=== PATIENT | male | born 1945 | race Caucasian/White ===

== ENCOUNTER 2020-01-02 21:58 | Inpatient (IN) | payer BC, MEDICARE ==
[~2020-01-02] VITALS: Ht 190.5 cm; Wt 146.0 kg
[2020-01-02 22:22] VITALS: BP 78/51
[2020-01-02 22:30] VITALS: BP 109/62
[2020-01-03] VITALS (15 sets, daily range): BP systolic 75–122; BP diastolic 46–66
[2020-01-03] MEDS ORDERED: IPRATRPIUM/ALBUTEROL 0.5/2.5MG 3 ML NEBU. NEB ONE (02:00)
--- NOTE | 2020-01-03 02:12 | RAD ---
INDICATION: Reason: ng tube placement - readjust #204 / Spl. Instructions: / History: COMPARISON: One day prior IMPRESSION: Abdomen from 1:45 AM 01/03/2020. 1 view obtained. Single enteric tube is seen with tip in the left upper quadrant at the expected location of the stomach. Degenerative changes of the spine. Bowel gas pattern similar to prior with some prominent air-filled loops of bowel. Abdomen from 1:39 AM 01/03/2020. Single enteric tube is seen projecting over the expected location of the lower esophagus. Air-filled distended loops of bowel within the abdomen this patient with suspected bowel obstruction. Electronically signed by: Christopher Catalan MD (01/03/2020 2:09 AM) [id number]
[2020-01-03] MEDS ORDERED: PROPOFOL 10 MG/ML (20ML) VIAL. IV ONE (07:06)
[2020-01-03] MEDS ORDERED: LIDOCAINE 2% PF 5 ML VIAL. ONE (07:06)
[2020-01-03] MEDS ORDERED: ONDANSETRON PF 4 MG/2 ML VIAL. ONE (07:06)
[2020-01-03] MEDS ORDERED: DEXAMETHASONE SOD PHOS 4 MG/ML VIAL ONE (07:06)
[2020-01-03] MEDS ORDERED: SUCCINYLCHOLINE 200 MG/10 ML VIAL. ONE (07:08)
[2020-01-03] MEDS ORDERED: ROCURONIUM 50 MG/5 ML VIAL. ONE ×2 (07:08→09:36)
--- NOTE | 2020-01-03 07:10 | NUR ---
UPON SHIFT CHANGE ASSESSMENT, PATIENT HAD PULLED OUT HIS NG TUBE, PULLED OFF HIS SPO2 PROBE, AND URINATED ON THE FLOOR AND IN THE TRASH CAN. AT THIS TIME PATIENT ISN'T ORIENTED TO PLACE OR TIME. PATIENTS LINEN CHANGED AND PATIENT RE-ORIENTED. PATIENT REFUSING HOSPITAL GOWN AT THIS TIME. WILL CONTINUE TO MONITOR PATIENT.
--- NOTE | 2020-01-03 07:23 | PDOC1 ---
History and Physical Date of Admission Date of Admission DATE: 01/03/20 TIME: 07:21 Identification/Chief Complaint Chief Complaint Abdominal pain Source Source: Chart review, Patient History of Present Illness History of Present Illness Mr Ortega is a 74 year old male w/ PMHx OA, COPD, smoker who presents via private vehicle to [facility] with abdominal pain with vomiting. Patient states that for the last several months he has had this bulge in his abdomen has been getting bigger. Over the last couple days it has become painful and he has been having intermittent spontaneous vomiting. He states he is not been able to eat or drink anything for the last 2 or 3 days. The only time he was able to eat something was a banana yesterday morning but he immediately had vomiting. He denies any chest pain or shortness of breath. He is diaphoretic but states that he often has diaphoresis. CT abdomen pelvis was ordered and does show an incarcerated hernia with obstruction. Upon NGT placement on telemetry was noted with atrial fibrillation with RVR. He was started on diltiazem and transferred to [facility]. Initially seen on cardiovascular floor. Labs significant for WBC 9.6, Hb 17, platelets 324, NA 136, K3.9, BUN 383, CR 2.1, glucose 121, lactate 2.3, troponin negative. INR 1.2 EKG performed here is normal sinus rhythm with no ST segment changes. To the OR for hernia reduction, actually was reducible in the OR physically, mesh placed. Seen pre-and postoperatively Postoperatively unable to extubate due to significant hypercapnia found with ABG is 7.17, 69.5, 199.7. Seen in ICU postop. Past Medical History Pulmonary: Bronchitis, COPD Past Surgical History Past Surgical History: Total hip replacement Family History Family History: Chronic Bronchitis, High Cholestrol, Hypertension Social History Smoke: 1 pack per day ALCOHOL: occassional Drugs: None Current Medications Current Medications Current Medications Albuterol/ Ipratropium (Duoneb) 3 ml RTQID NEB ; Start 01/03/20 at 08:00 Albuterol/ Ipratropium (Duoneb) 3 ml 1X ONCE NEB Last administered on 01/03/20at 01:57; Start 01/03/20 at 02:00; Stop 01/03/20 at 02:01; Status DC Propofol (Diprivan) 200 mg STK-MED ONCE IV ; Start 01/03/20 at 07:06; Stop 01/03/20 at 07:06; Status DC Lidocaine HCl (Lidocaine Pf 2% Vial) 5 ml STK-MED ONCE .ROUTE ; Start 01/03/20 at 07:06; Stop 01/03/20 at 07:07; Status DC Dexamethasone Sodium Phosphate (Decadron) 4 mg STK-MED ONCE .ROUTE ; Start 01/03/20 at 07:06; Stop 01/03/20 at 07:07; Status DC Ondansetron HCl (Zofran) 4 mg STK-MED ONCE .ROUTE ; Start 01/03/20 at 07:06; Stop 01/03/20 at 07:07; Status DC Succinylcholine Chloride (Anectine) 200 mg STK-MED ONCE .ROUTE ; Start 01/03/20 at 07:08; Stop 01/03/20 at 07:08; Status DC Rocuronium Ripley (Zemuron) 50 mg STK-MED ONCE .ROUTE ; Start 01/03/20 at 07:08; Stop 01/03/20 at 07:09; Status DC Allergies Allergies: Coded Allergies: No Known Drug Allergies (Unverified , 01/03/20) ROS General: No: Chills, Night Sweats, Fatigue, Malaise, Appetite, Other PSYCHOLOGICAL ROS: No: Anxiety, Behavioral Disorder, Concentration difficultie, Decreased libido, Depression, Disorientation, Hallucinations, Hostility, Irritablity, Memory difficulties, Mood Swings, Obsessive thoughts, Physical abuse, Sexual abuse, Sleep disturbances, Suicidal ideation, Other Eyes: No Blurry vision, No Decreased vision, No Double vision, No Dry eyes, No Excessive tearing, No Eye Pain, No Itchy Eyes, No Loss of vision, No P hotophobia, No Scotomata, No Uses contacts, No Uses glasses, No Other HEENT: No: Heacaches, Visual Changes, Hearing change, Nasal congestion, Nasal discharge, Oral lesions, Sinus pain, Sore Throat, Epistaxis, Sneezing, Snoring, Tinnitus, Vertigo, Vocal changes, Other ALLERGY AND IMMUNOLOGY: No: Hives, Insect Bite Sensitivity, Itchy/Watery Eyes, Nasal Congestion, Post Nasal Drip, Seasonal Allergies, Other Hematological and Lymphatic: No: Bleeding Problems, Blood Clots, Blood Transfusions, Brusing, Night Sweats, Pallor, Swollen Lymph Nodes, Other ENDOCRINE: No: Breast Changes, Galactorrhea, Hair Pattern Changes, Hot Flashes, Malaise/lethargy, Mood Swings, Palpitations, Polydipsia/polyuria, Skin Changes, Temperature Intolerance, Unexpected Weight Changes, Other Breast: No New/Changing Breast Lumps, No Nipple changes, No Nipple discharge, No Other Respiratory: No: Cough, Hemoptysis, Orthopnea, Pleuritic Pain, Shortness of breath, SOB with excertion, Sputum Changes, Stridor, Tachypnea, Wheezing, Other Cardiovascular: No Chest Pain, No Palpitations, No Orthopnea, No Paroxysmal Noc. Dyspnea, No Edema, No Lt Headedness, No Other Gastrointestinal: Yes Nausea, Yes Vomiting, Yes Abdominal Pain; No Diarrhea, No Constipation, No Melena, No Hematochezia, No Other Genitourinary: No Dysuria, No Frequency, No Incontinence, No Hematuria, No Retention, No Discharge, No Urgency, No Pain, No Flank Pain, No Other, No , No , No , No , No , No , No Musculoskeletal: No Gait Disturbance, No Joint Pain, No Joint Stiffness, No Joint Swelling, No Muscle Pain, No Muscular Weakness, No Pain In:, No Swelling In:, No Other Neurological: No Behavorial Changes, No Bowel/Bladder ControlChng, No Confusion, No Dizziness, No Gait Disturbance, No Headaches, No Impaired Coord/balance, No Memory Loss, No Numbness/Tingling, No Seizures, No Speech Problems, No Tremors, No Visual Changes, No Weakness, No Other Skin: No Dry Skin, No Eczema, No Hair Changes, No Lumps, No Mole Changes, No Mottling, No Nail Changes, No Pruritus, No Rash, No Skin Lesion Changes, No Other, No Acne Physical Exam General: Alert, Oriented X3, Cooperative, moderate distress HEENT: Atraumatic, PERRLA, EOMI, Mucous membr. moist/pink Lungs: Clear to auscultation, Normal air movement Heart: S1S2, RRR, no thrills, no rubs, no gallops, no murmurs Abdomen: Normal bowel sounds, Soft, No hepatosplenomegaly, No masses, Other (Ventral hernia, not reducible, pain on palpation) Rectal Exam: not examined Extremities: No clubbing, No cyanosis, No edema, Normal pulses, No tenderness/swelling Skin: No rashes, No breakdown, No significant lesion Neuro: Normal speech, Strength at 5/5 X4 ext, Normal tone, Sensation intact, Cranial nerves 3-12 NL, Reflexes 2+ Psych/Mental Status: Mental status NL, Mood NL Vitals Vitals Vital Signs Date Time Temp Pulse Resp B/P (MAP) Pulse Ox O2 Delivery O2 Flow Rate FiO2 01/03/20 02:26 98.6 86 122/66 (84) 94 Nasal Cannula 2.0 98.6 01/02/20 22:22 20 Labs Labs Laboratory Tests Test 01/02/20 22:15 SARS-CoV-2 Antigen (Rapid) Negative (NEGATIVE) Laboratory Tests Test 01/02/20 22:15 SARS-CoV-2 Antigen (Rapid) Negative (NEGATIVE) Images Images CXR: 2 supine images submitted. Interval placement of NG tube with tip projected to the level of the gastric fundus. Heart size is upper limits of normal. There is elevation of right hemidiaphragm. Mild patchy increased density at the left lung base with blunting of left costophrenic sulcus. Lungs are otherwise clear. No pneumothorax. IMPRESSION: 1. NG tube with tip projected to the level the gastric fundus. 2. Patchy left basilar opacity, likely atelectasis. There is a suspected small left pleural effusion versus pleural thickening. CT abdomen/pelvis: Heart size is normal. No pericardial effusion. Left pleural calcifications are noted. Bases are otherwise clear. Evaluation of solid organs is limited secondary to noncontrast technique. There is diffuse hepatic steatosis. Spleen, pancreas, gallbladder and adrenals are unremarkable. There is a large simple appearing cyst at the lower pole of the right kidney measuring 14.8 x 9.8 cm incompletely characterized on noncontrast study. No perinephric inflammation or hydronephrosis. No renal or ureteral calculi are identified. Bladder is decompressed not well evaluated. Prostate is not enlarged. There is a supraumbilical ventral hernia, which contains a short segment of large and small bowel. There is associated small bowel obstruction secondary to a hernia. No free intra-abdominal air or fluid. There are strandy opacities in the mesentery adjacent to the hernia. Abdominal aorta has a normal course and caliber. No enlarged intra-abdominal lymph nodes are identified. No suspicious osseous lesions or acute fractures. IMPRESSION: 1. Supraumbilical hernia containing a short segment of small and large bowel causing small bowel obstruction. 2. Diffuse hepatic steatosis. VTE Prophylaxis Ordered VTE Prophylaxis Devices: No VTE Pharmacological Prophylaxi: Yes Assessment/Plan Assessment/Plan A/P: Incarcerated ventral hernia - NPO, Pulled NGT multiple times. To OR ?Atrial fibrillation with RVR - no EKG available. Off cardizem. NSR on EKG here. Will consult cardiology for this. Cont telemetry SHAQ - likely vasomotor nephropathy. No known renal history. Will hydrate as well. Thrombocytosis - likely from TARIQ undiagnosed, likely cause of inability to extubate COPD - pulm consulted post-op for failure to extubate. Duonebs q4hrs and pulmicort Obesity - counseled on weight loss, likely has TARIQ or OHS Smoker - counseled on cessation Hypercapnic respiratory failure - likely 2/2 undiagnosed TARIQ/OHS and underlying COPD. Pulm consulted. Vent wean daily FEN - NPO PPX - heparin FULL CODE Dispo - ICU for post op monitoring CC time 47 minutes on 2 visits today Justicifation of Admission Dx: Justifications for Admission: Justification of Admission Dx: Yes RANGEL RASHID MD Jan 03, 2020 07:23
[2020-01-03] MEDS ORDERED: ACETAMINOPHEN 650 MG SUPP.RECT. PR PRN (07:30)
[2020-01-03] MEDS ORDERED: IV RINGERS,LACTATED 1000ML 1,000 ML IV ONE (07:30)
[2020-01-03] MEDS ORDERED: ACETAMINOPHEN 650 MG/20.3 ML SOLUTION. GT PRN (07:30)
[2020-01-03] MEDS ORDERED: fentaNYL PF VIAL 100 MCG/2 ML VIAL IVP PRN ×2 (07:30→12:45)
[2020-01-03] MEDS ORDERED: ONDANSETRON PF 4 MG/2 ML VIAL. IV PRN ×2 (07:30→09:45)
--- NOTE | 2020-01-03 07:40 | EKG ---
[facility] [address] [place] [address] Test Date: 2020-01-03 Test Time: 07:35:55 Pat Name: MACO VILLARREAL Department: Room: 204 1 Gender: M Founder / Ceo: : 1945 Requested By: RANGEL RASHID Order Number: [id number] Reading MD: Measurements Intervals Huntley Rate: 84 P: 48 ME: 172 QRS: 51 QRSD: 86 T: 65 QT: 372 QTc: 443 Interpretive Statements SINUS RHYTHM LOW LIMB LEAD VOLTAGE NO SPECIFIC ECG ABNORMALITIES RI6.02 No previous ECG available for comparison
[2020-01-03] MEDS ORDERED: SEVOFLURANE 61 TO 120 MINUTES. IH ONE (07:55)
[2020-01-03] MEDS ORDERED: fentaNYL PF VIAL 100 MCG/2 ML VIAL ONE ×2 (07:55→11:40)
[2020-01-03] MEDS ORDERED: IPRATRPIUM/ALBUTEROL 0.5/2.5MG 3 ML NEBU. NEB SCH (08:00)
[2020-01-03 08:10] LABS: BASO % 1 % (0-3); EOS # 0.1 x10^3/uL (0.0-0.7); EOS % 1 % (0-3); HEMATOCRIT 41.5 % (39.0-53.0); HEMOGLOBIN 14.1 g/dL (13.0-17.5); LYMPH # 1.6 x10^3/uL (1.0-4.8); LYMPH % 24 % (24-48); MEAN CORPUSCULAR HEMOGLOBIN 31 pg (25-35); MEAN CORPUSCULAR HGB CONC 34 g/dL (31-37); MEAN CORPUSCULAR VOLUME 91 fL (79-100); MONO # 0.8 x10^3/uL (0.0-1.1); MONO % 12 % (0-9); NEUT # 4.1 x10^3/uL (1.8-7.7); NEUT % 62 % (31-73); PLATELET COUNT 236 x10^3/uL (140-400); RED BLOOD COUNT 4.58 x10^6/uL (4.30-5.70); RED CELL DISTRIBUTION WIDTH 14.1 % (11.5-14.5); WHITE BLOOD COUNT 6.6 x10^3/uL (4.0-11.0)
[2020-01-03 08:21] LABS: PROTHROMBIN TIME PATIENT 14.3 SEC (11.7-14.0)
[2020-01-03 08:24] LABS: ALBUMIN 2.9 g/dL (3.4-5.0); ALBUMIN/GLOBULIN RATIO 0.8 (1.0-1.7); CALCIUM 7.8 mg/dL (8.5-10.1); CREATININE 1.5 mg/dL (0.7-1.3); GFR 45.5; TOTAL BILIRUBIN 0.4 mg/dL (0.2-1.0); TOTAL PROTEIN 6.6 g/dL (6.4-8.2)
[2020-01-03] MEDS ORDERED: IPRATRPIUM/ALBUTEROL 0.5/2.5MG 3 ML NEBU. NEB STA (08:29)
--- NOTE | 2020-01-03 08:39 | PDOC2 ---
CONSULT Date of Consult Date of Consult DATE: 01/03/20 TIME: 08:37 History of Present Illness Reason for Visit: The patient is a 74 year old male who was taken to [facility] ER with SOB and a worsening ventral hernia. The patient is a poor historian and states "I don't know" to numerous questions. Evidently a hernia had been known about for some time, but recently he developed vomiting. While in [facility] a CT scan noted the hernia containing bowel with some degree of obstruction. He was transferred to [facility] for further treatment. Past Medical History Past Medical History COPD, A Fib Past Surgical History Past Surgical History Hip replacement Social History 1 pack per day Current Medications Current Medications Current Medications Albuterol/ Ipratropium (Duoneb) 3 ml RTQID NEB Last administered on 01/03/20at 07:40; Start 01/03/20 at 08:00 Albuterol/ Ipratropium (Duoneb) 3 ml 1X ONCE NEB Last administered on 01/03/20at 01:57; Start 01/03/20 at 02:00; Stop 01/03/20 at 02:01; Status DC Propofol (Diprivan) 200 mg STK-MED ONCE IV ; Start 01/03/20 at 07:06; Stop 01/03/20 at 07:06; Status DC Lidocaine HCl (Lidocaine Pf 2% Vial) 5 ml STK-MED ONCE .ROUTE ; Start 01/03/20 at 07:06; Stop 01/03/20 at 07:07; Status DC Dexamethasone Sodium Phosphate (Decadron) 4 mg STK-MED ONCE .ROUTE ; Start 01/03/20 at 07:06; Stop 01/03/20 at 07:07; Status DC Ondansetron HCl (Zofran) 4 mg STK-MED ONCE .ROUTE ; Start 01/03/20 at 07:06; Stop 01/03/20 at 07:07; Status DC Succinylcholine Chloride (Anectine) 200 mg STK-MED ONCE .ROUTE ; Start 01/03/20 at 07:08; Stop 01/03/20 at 07:08; Status DC Rocuronium Sparks (Zemuron) 50 mg STK-MED ONCE .ROUTE ; Start 01/03/20 at 07:08; Stop 01/03/20 at 07:09; Status DC Ringer's Solution 1,000 ml @ 75 mls/hr 1X ONCE IV Last administered on 01/03/20at 07:30; Start 01/03/20 at 07:30; Stop 01/03/20 at 20:49 Ondansetron HCl (Zofran) 4 mg PRN Q4HRS PRN IV NAUSEA/VOMITING; Start 01/03/20 at 07:30 Acetaminophen (Tylenol) 650 mg PRN Q4HRS PRN GT TEMP OVER 100.4F OR MILD PAIN; Start 01/03/20 at 07:30 Acetaminophen (Tylenol Supp) 650 mg PRN Q4HRS PRN MS TEMP OVER 100.4F OR MILD PAIN; Start 01/03/20 at 07:30 Fentanyl Citrate (Fentanyl 2ml Vial) 25 mcg PRN Q2HR PRN IVP MODERATE PAIN; Start 01/03/20 at 07:30 Sevoflurane (Ultane) 60 ml STK-MED ONCE IH ; Start 01/03/20 at 07:55; Stop 01/03/20 at 07:55; Status DC Fentanyl Citrate (Fentanyl 2ml Vial) 100 mcg STK-MED ONCE .ROUTE ; Start 01/03/20 at 07:55; Stop 01/03/20 at 07:55; Status DC Albuterol/ Ipratropium (Duoneb) 3 ml 1X STAT NEB ; Start 01/03/20 at 08:29; Stop 01/03/20 at 08:34; Status DC Allergies Allergies: Coded Allergies: No Known Drug Allergies (Unverified , 01/03/20) ROS General: No: Chills, Night Sweats, Fatigue, Malaise, Appetite, Other PSYCHOLOGICAL ROS: No: Anxiety, Behavioral Disorder, Concentration difficultie, Decreased libido, Depression, Disorientation, Hallucinations, Hostility, Irritablity, Memory difficulties, Mood Swings, Obsessive thoughts, Physical abuse, Sexual abuse, Sleep disturbances, Suicidal ideation, Other Eyes: No Blurry vision, No Decreased vision, No Double vision, No Dry eyes, No Excessive tearing, No Eye Pain, No Itchy Eyes, No Loss of vision, No Photophobia, No Scotomata, No Uses contacts, No Uses glasses, No Other HEENT: No: Heacaches, Visual Changes, Hearing change, Nasal congestion, Nasal discharge, Oral lesions, Sinus pain, Sore Throat, Epistaxis, Sneezing, Snoring, Tinnitus, Vertigo, Vocal changes, Other ALLERGY AND IMMUNOLOGY: No: Hives, Insect Bite Sensitivity, Itchy/Watery Eyes, Nasal Congestion, Post Nasal Drip, Seasonal Allergies, Other ENDOCRINE: No: Breast Changes, Galactorrhea, Hair Pattern Changes, Hot Flashes, Malaise/lethargy, Mood Swings, Palpitations, Polydipsia/polyuria, Skin Changes, Temperature Intolerance, Unexpected Weight Changes, Other Breast: No New/Changing Breast Lumps, No Nipple changes, No Nipple discharge, No Other Respiratory: YES: Shortness of breath Cardiovascular: No Chest Pain, No Palpitations, No Orthopnea, No Paroxysmal N oc. Dyspnea, No Edema, No Lt Headedness, No Other Gastrointestinal: Yes Vomiting Genitourinary: No Dysuria, No Frequency, No Incontinence, No Hematuria, No Retention, No Discharge, No Urgency, No Pain, No Flank Pain, No Other, No , No , No , No , No , No , No Musculoskeletal: No Gait Disturbance, No Joint Pain, No Joint Stiffness, No Joint Swelling, No Muscle Pain, No Muscular Weakness, No Pain In:, No Swelling In:, No Other Neurological: No Behavorial Changes, No Bowel/Bladder ControlChng, No Confusion, No Dizziness, No Gait Disturbance, No Headaches, No Impaired Coord/balance, No Memory Loss, No Numbness/Tingling, No Seizures, No Speech Problems, No Tremors, No Visual Changes, No Weakness, No Other Skin: No Dry Skin, No Eczema, No Hair Changes, No Lumps, No Mole Changes, No Mottling, No Nail Changes, No Pruritus, No Rash, No Skin Lesion Changes, No Other, No Acne Physical Exam General: Alert, Other (flat affect) HEENT: Atraumatic Lungs: Clear to auscultation Abdomen: Soft (morbidly obese, sizeable upper mid abdominal hernia, soft but not fully reducible, nontender) Extremities: No cyanosis Skin: No rashes Neuro: Normal speech Vitals VITALS Vital Signs Date Time Temp Pulse Resp B/P (MAP) Pulse Ox O2 Delivery O2 Flow Rate FiO2 01/03/20 07:42 91 Nasal Cannula 2.0 01/03/20 07:15 98.6 82 20 106/58 (74) 98.6 Labs Labs Laboratory Tests Test 01/02/20 22:15 8/8/20 07:10 SARS-CoV-2 Antigen (Rapid) Negative (NEGATIVE) White Blood Count 6.6 x10^3/uL (4.0-11.0) Red Blood Count 4.58 x10^6/uL (4.30-5.70) Hemoglobin 14.1 g/dL (13.0-17.5) Hematocrit 41.5 % (39.0-53.0) Mean Corpuscular Volume 91 fL (79-100) Mean Corpuscular Hemoglobin 31 pg (25-35) Mean Corpuscular Hemoglobin Concent 34 g/dL (31-37) Red Cell Distribution Width 14.1 % (11.5-14.5) Platelet Count 236 x10^3/uL (140-400) Neutrophils (%) (Auto) 62 % (31-73) Lymphocytes (%) (Auto) 24 % (24-48) Monocytes (%) (Auto) 12 % (0-9) Eosinophils (%) (Auto) 1 % (0-3) Basophils (%) (Auto) 1 % (0-3) Neutrophils # (Auto) 4.1 x10^3/uL (1.8-7.7) Lymphocytes # (Auto) 1.6 x10^3/uL (1.0-4.8) Monocytes # (Auto) 0.8 x10^3/uL (0.0-1.1) Eosinophils # (Auto) 0.1 x10^3/uL (0.0-0.7) Basophils # (Auto) 0.0 x10^3/uL (0.0-0.2) Prothrombin Time 14.3 SEC (11.7-14.0) Prothromb Time International Ratio 1.2 (0.8-1.1) Sodium Level 138 mmol/L (136-145) Potassium Level 4.0 mmol/L (3.5-5.1) Chloride Level 102 mmol/L (98-107) Carbon Dioxide Level 28 mmol/L (21-32) Anion Gap 8 (6-14) Blood Urea Nitrogen 33 mg/dL (8-26) Creatinine 1.5 mg/dL (0.7-1.3) Estimated GFR (Cockcroft-Gault) 45.5 BUN/Creatinine Ratio 22 (6-20) Glucose Level 82 mg/dL (70-99) Calcium Level 7.8 mg/dL (8.5-10.1) Total Bilirubin 0.4 mg/dL (0.2-1.0) Aspartate Amino Transf (AST/SGOT) 33 U/L (15-37) Alanine Aminotransferase (ALT/SGPT) 34 U/L (16-63) Alkaline Phosphatase 56 U/L (46-116) Total Protein 6.6 g/dL (6.4-8.2) Albumin 2.9 g/dL (3.4-5.0) Albumin/Globulin Ratio 0.8 (1.0-1.7) Laboratory Tests Test 01/02/20 22:15 01/03/20 07:10 SARS-CoV-2 Antigen (Rapid) Negative (NEGATIVE) White Blood Count 6.6 x10^3/uL (4.0-11.0) Red Blood Count 4.58 x10^6/uL (4.30-5.70) Hemoglobin 14.1 g/dL (13.0-17.5) Hematocrit 41.5 % (39.0-53.0) Mean Corpuscular Volume 91 fL (79-100) Mean Corpuscular Hemoglobin 31 pg (25-35) Mean Corpuscular Hemoglobin Concent 34 g/dL (31-37) Red Cell Distribution Width 14.1 % (11.5-14.5) Platelet Count 236 x10^3/uL (140-400) Neutrophils (%) (Auto) 62 % (31-73) Lymphocytes (%) (Auto) 24 % (24-48) Monocytes (%) (Auto) 12 % (0-9) Eosinophils (%) (Auto) 1 % (0-3) Basophils (%) (Auto) 1 % (0-3) Neutrophils # (Auto) 4.1 x10^3/uL (1.8-7.7) Lymphocytes # (Auto) 1.6 x10^3/uL (1.0-4.8) Monocytes # (Auto) 0.8 x10^3/uL (0.0-1.1) Eosinophils # (Auto) 0.1 x10^3/uL (0.0-0.7) Basophils # (Auto) 0.0 x10^3/uL (0.0-0.2) Prothrombin Time 14.3 SEC (11.7-14.0) Prothromb Time International Ratio 1.2 (0.8-1.1) Sodium Level 138 mmol/L (136-145) Potassium Level 4.0 mmol/L (3.5-5.1) Chloride Level 102 mmol/L (98-107) Carbon Dioxide Level 28 mmol/L (21-32) Anion Gap 8 (6-14) Blood Urea Nitrogen 33 mg/dL (8-26) Creatinine 1.5 mg/dL (0.7-1.3) Estimated GFR (Cockcroft-Gault) 45.5 BUN/Creatinine Ratio 22 (6-20) Glucose Level 82 mg/dL (70-99) Calcium Level 7.8 mg/dL (8.5-10.1) Total Bilirubin 0.4 mg/dL (0.2-1.0) Aspartate Amino Transf (AST/SGOT) 33 U/L (15-37) Alanine Aminotransferase (ALT/SGPT) 34 U/L (16-63) Alkaline Phosphatase 56 U/L (46-116) Total Protein 6.6 g/dL (6.4-8.2) Albumin 2.9 g/dL (3.4-5.0) Albumin/Globulin Ratio 0.8 (1.0-1.7) Assessment/Plan Assessment/Plan 74 year old male with ventral hernia, incarcerated, some degree of obstruction; recommend operative correction. I attempted to discuss the details and risks of the surgery with the patient. He has no further questions. He is at high risk of surgery due to his comorbidities, however given his presentation I believe surgery to be urgently necessary. LESTER PITT MD Jan 03, 2020 08:39
[2020-01-03] MEDS ORDERED: ceFAZolin SODIUM 3 GM in IV DEXTROSE 5% 100ML 100 ML IV PRN (09:00)
[2020-01-03] MEDS ORDERED: VASOPRESSIN 20 UNIT/ML VIAL. ONE (09:25)
[2020-01-03] MEDS ORDERED: MORPHINE SULFATE 2 MG/ML VIAL. IV PRN (09:45)
[2020-01-03] MEDS ORDERED: fentaNYL PF VIAL 100 MCG/2 ML VIAL IV PRN (09:45)
[2020-01-03] MEDS ORDERED: PROCHLORPERAZINE 10 MG/2 ML VIAL. IV PRN (09:45)
[2020-01-03] MEDS ORDERED: LIDOCAINE 1% PF 2 ML VIAL. ID PRN (09:45)
[2020-01-03] MEDS ORDERED: HYDROmorphone 2 MG/ML VIAL IV PRN (09:45)
[2020-01-03] MEDS ORDERED: IV RINGERS,LACTATED 1000ML 1,000 ML IV SCH (10:00)
[2020-01-03] MEDS ORDERED: PHENYLEPHRINE in 0.9% NACL PF 1 MG/10 ML SYRINGE. IV ONE (10:00)
[2020-01-03] MEDS ORDERED: ePHEDrine PF IN SALINE 50 MG/10 ML SYRINGE. IV ONE (10:00)
[2020-01-03] MEDS ORDERED: GLYCOPYRROLATE 1 MG/5 ML VIAL. ONE (10:25)
[2020-01-03] MEDS ORDERED: NEOSTIGMINE METHYLSULFATE 5 MG/5 ML SYRINGE. ONE (10:26)
--- NOTE | 2020-01-03 10:43 | PDOC4 ---
Operative Note Operative Note Operative Note: Preoperative Diagnosis: Incarcerated ventral hernia Postoperative Diagnosis: Same Procedure: Repair of incarcerated ventral hernia with mesh Surgeon: Hermann Anesthesia: General EBL: 20 mL Specimen: None Drains: None Complications: None Indication: The patient is a 74-year-old male who reported to the hospital with a worsening hernia. A CT scan confirmed an upper abdominal hernia containing bowel and obstruction consistent with incarceration. We plan to proceed to the operating room for repair. The patient and his family understand that he is very high risk due to multiple comorbidities. Risks of surgery were discussed which include bleeding, infection, recurrence, pain, anesthetic risk, potential need for additional surgery or procedure. They understand and would like to proceed. Description: The patient was taken to the operating room and placed supine in the operating table. General anesthesia was performed. The abdomen is prepped with ChloraPrep and draped with sterile towels, sheets, and an Ioban. An upper vertical midline incision was made in the skin with a scalpel. Cautery dissection was carried down to the fascia. With anesthesia all of the in carcerated contents were able to be manually reduced. The hernia defect edges were clarified and measured 5 x 7 cm. A preperitoneal plane was developed circumferentially in all directions. An elliptical Ventrio ST mesh was then placed in the preperitoneal plane. There was very good overlap in all directions of the hernia defect. The mesh was sutured into position around its periphery with 0 Prolene placed in a horizontal mattress fashion. Additional fixation between the stitches was provided with the secure strap tacker. The fascial edges were closed over the mesh with interrupted 0 Prolene sutures. A 19 Japanese round René drain was left in subcutaneous space which exited in the right lateral abdomen. This was secured to the skin with 2-0 silk. The subcutaneous tissues were closed with 3-0 and 0 Vicryl. The skin was then approximated with 4-0 Monocryl. Steri-Strips and a sterile dressing were applied. An abdominal binder was placed. The patient tolerated the procedure well and was sent to the recovery room in stable condition. At the end of the case all counts were correct. LESTER PITT MD Jan 03, 2020 10:43
[2020-01-03] MEDS ORDERED: MIDAZOLAM HCL/PF 2 MG/2 ML VIAL. ONE (11:10)
[2020-01-03] MEDS: fentaNYL PF VIAL 100 MCG/2 ML VIAL IV PRN ×3 (11:53→16:18)
[2020-01-03] MEDS ORDERED: PROPOFOL 100 ML IV ONE (12:12)
[2020-01-03 12:22] LABS: PCO2 ABG 70 mmHg (35-46); PO2 ABG 200 mmHg (65-108)
[2020-01-03 12:23] LABS: BASE EXCESS ABG -5 mmol/L (-3-3); FIO2 ABG 100; HCO3 ABG 25 mmol/L (21-28); SAT O2 ABG 99 % (92-99)
[2020-01-03] MEDS: PROPOFOL 100 ML IV PRN ×3 (13:00→20:23)
[2020-01-03] MEDS ORDERED: BUDESONIDE 0.5 MG/2 ML NEBU. NEB ONE (13:00)
[2020-01-03] MEDS ORDERED: IV NORMAL SALINE 1000ML BAG 1,000 ML IV ONE ×2 (13:00→14:00)
--- NOTE | 2020-01-03 13:26 | RAD ---
CHEST AP ONLY 01/03/2020 12:58 PM INDICATION: Intubation COMPARISON: None available TECHNIQUE: Portable frontal view of the chest is provided. FINDINGS: The cardiomediastinal silhouette is within normal limits. Endotracheal tube terminates 5.4 cm above the level of the ana luisa. Nasogastric tube is identified coursing below the diaphragm the distal tip not visualized on this radiograph. Small left pleural effusion with adjacent compressive atelectasis versus infiltrate. Right lung is clear. No suspicious osseous abnormality. IMPRESSION: Endotracheal tube and nasogastric tube are in satisfactory position. No pneumothorax. Small left pleural effusion with adjacent compressive atelectasis versus infiltrate. Electronically signed by: Shonna Clancy MD (01/03/2020 1:23 PM) [facility]
[2020-01-03] MEDS: IPRATRPIUM/ALBUTEROL 0.5/2.5MG 3 ML NEBU. NEB SCH ×3 (13:27→20:00)
--- NOTE | 2020-01-03 13:53 | NUR ---
Pt to room 106 from recovery room at 1230, intubated, with RT, nurse, and Dr. Baker. Pt awake and pulling at ET tube. Both IV's lost. 2 new IV's started, sedation started, mitts applied and pt more comfortable and no longer pulling at lines and ET tube. 16 Cypriot Maddox cath reinserted and 18F OG placed. ABG's obtained, Dr. Steve notified of ABG results and vent settings changed.
[2020-01-03] MEDS: HEPARIN for SUB-Q USE 5,000 UNIT/ML VIAL. SQ SCH ×2 (15:36→22:42)
[2020-01-03 15:38] LABS: BASE EXCESS ABG -3 mmol/L (-3-3); HCO3 ABG 22 mmol/L (21-28); PCO2 ABG 42 mmHg (35-46); PO2 ABG 103 mmHg (65-108); SAT O2 ABG 97 % (92-99)
[2020-01-03 15:44] LABS: FIO2 ABG 80
[2020-01-03] MEDS: NYSTATIN TOPICAL POWDER 15GM BOTTLE. TP SCH ×2 (15:45→20:24)
[2020-01-03] MEDS ORDERED: NOREPINEPHRINE VIAL 8 MG in IV DEXTROSE 5% 250 ML IV PRN (18:15)
[2020-01-03] MEDS ORDERED: ALBUMIN HUMAN 5% 500 ML IV ONE (18:15)
[2020-01-03 18:56] LABS: BILIRUBIN,URINE SMALL (NEG); CLARITY,URINE CLEAR; NITRITE,URINE NEGATIVE (NEG); PH,URINE 5.5 (<5.0-8.0); PROTEIN,URINE NEGATIVE (NEG-TRACE)
[2020-01-03 19:12] LABS: COLOR,URINE YELLOW
[2020-01-03 19:14] LABS: BACTERIA,URINE 0 /HPF (0-FEW); RBC,URINE OCC /HPF (0-2); SQUAMOUS EPITHELIAL CELL,UR FEW /LPF; WBC,URINE OCC /HPF (0-4)
[2020-01-03] MEDS: BUDESONIDE 0.5 MG/2 ML NEBU. NEB SCH (20:00)
[2020-01-04] VITALS (25 sets, daily range): BP systolic 76–130; BP diastolic 52–68
[2020-01-04] MEDS: PROPOFOL 100 ML IV PRN ×5 (00:19→21:43)
[2020-01-04] MEDS: IPRATRPIUM/ALBUTEROL 0.5/2.5MG 3 ML NEBU. NEB SCH ×6 (00:44→19:49)
[2020-01-04 04:58] LABS: BASO % 0 % (0-3); EOS % 0 % (0-3); HEMATOCRIT 35.5 % (39.0-53.0); HEMOGLOBIN 11.9 g/dL (13.0-17.5); LYMPH # 1.5 x10^3/uL (1.0-4.8); LYMPH % 20 % (24-48); MEAN CORPUSCULAR HEMOGLOBIN 31 pg (25-35); MEAN CORPUSCULAR HGB CONC 34 g/dL (31-37); MEAN CORPUSCULAR VOLUME 92 fL (79-100); MONO # 0.8 x10^3/uL (0.0-1.1); MONO % 10 % (0-9); NEUT # 5.6 x10^3/uL (1.8-7.7); NEUT % 70 % (31-73); PLATELET COUNT 200 x10^3/uL (140-400); RED BLOOD COUNT 3.87 x10^6/uL (4.30-5.70); RED CELL DISTRIBUTION WIDTH 14.1 % (11.5-14.5); WHITE BLOOD COUNT 7.9 x10^3/uL (4.0-11.0)
[2020-01-04] MEDS: HEPARIN for SUB-Q USE 5,000 UNIT/ML VIAL. SQ SCH ×3 (05:33→21:43)
[2020-01-04 06:19] LABS: ALBUMIN 2.7 g/dL (3.4-5.0); ALBUMIN/GLOBULIN RATIO 0.8 (1.0-1.7); CALCIUM 7.6 mg/dL (8.5-10.1); CREATININE 1.2 mg/dL (0.7-1.3); GFR 58.9; POTASSIUM 4.1 mmol/L (3.5-5.1); TOTAL BILIRUBIN 0.4 mg/dL (0.2-1.0); TOTAL PROTEIN 5.9 g/dL (6.4-8.2)
--- NOTE | 2020-01-04 07:42 | PDOC ---
[employer] PROGRESS NOTE Date of Service DOS: DATE: 01/04/20 TIME: 07:40 Chief Complaint Chief Complaint A/P: Incarcerated ventral hernia - NPO, Pulled NGT multiple times. To OR ?Atrial fibrillation with RVR - no EKG available. Off cardizem. NSR on EKG here. Will consult cardiology for this. Cont telemetry SHAQ - likely vasomotor nephropathy. No known renal history. Will hydrate as well. Thrombocytosis - likely from TARIQ undiagnosed, likely cause of inability to extubate COPD - pulm consulted post-op for failure to extubate. Duonebs q4hrs and pulmicort Obesity - counseled on weight loss, likely has TARIQ or OHS Smoker - counseled on cessation Hypercapnic respiratory failure - likely 2/2 undiagnosed TARIQ/OHS and underlying COPD. Pulm consulted. Vent wean daily FEN - NPO PPX - heparin FULL CODE Dispo - ICU for post op monitoring CC time 47 minutes History of Present Illness History of Present Illness Mr Ortega is a 74 year old male w/ PMHx OA, COPD, smoker who presented via private vehicle to [place] ED with abdominal pain with vomiting. CT abdomen pelvis was ordered and did show an incarcerated hernia with obstruction. Upon NGT placement on telemetry was noted with atrial fibrillation with RVR. He was started on diltiazem and transferred to [facility]. Initially seen on cardiovascular floor. Labs significant for WBC 9.6, Hb 17, platelets 324, NA 136, K3.9, BUN 383, CR 2.1, glucose 121, lactate 2.3, troponin negative. INR 1.2 EKG performed here is normal sinus rhythm with no ST segment changes. To the OR for hernia reduction, actually was reducible in the OR physically, mesh placed on 01/03/20 Postoperatively unable to extubate due to significant hypercapnia found with ABG is 7.17, 69.5, 199.7. Seen in ICU on ventilator. When sedation was weaned he was very panicked. CXR with bibasilar atelectasis. On AC mode rate of 16, TV 550, FiO2 60%, PEEP 7 ABG 7.34/42/103 on this. Cr down to 1.2 Plan: Cont vent in ICU Vitals/I&O Vitals/I&O: Vital Signs Date Time Temp Pulse Resp B/P (MAP) Pulse Ox O2 Delivery O2 Flow Rate FiO2 01/04/20 07:00 71 24 105/65 (78) 94 Ventilator 01/04/20 04:00 98.6 98.6 01/04/20 01:24 2.0 I & O 01/03/20 01/03/20 01/04/20 15:00 23:00 07:00 Intake Total 2450 ml 120 ml 340 ml Output Total 40 ml 260 ml 200 ml Balance 2410 ml -140 ml 140 ml Physical Exam General: Alert, Oriented X3, Cooperative, moderate distress Abdomen: Normal bowel sounds, Soft, No hepatosplenomegaly, No masses, Other (Ventral hernia, not reducible, pain on palpation) Extremities: No clubbing, No cyanosis, No edema, Normal pulses, No tenderness/swelling Skin: No rashes, No breakdown, No significant lesion Labs Labs: Laboratory Tests Test 01/03/20 11:40 01/03/20 15:25 01/03/20 18:45 01/04/20 04:30 O2 Saturation 99 % (92-99) 97 % (92-99) Arterial Blood pH 7.17 (7.35-7.45) 7.34 (7.35-7.45) Arterial Blood pCO2 at Patient Temp 70 mmHg (35-46) 42 mmHg (35-46) Arterial Blood pO2 at Patient Temp 200 mmHg (65-108) 103 mmHg (65-108) Arterial Blood HCO3 25 mmol/L (21-28) 22 mmol/L (21-28) Arterial Blood Base Excess -5 mmol/L (-3-3) -3 mmol/L (-3-3) FiO2 100 80 Urine Collection Type Unknown Urine Color Yellow Urine Clarity Clear Urine pH 5.5 (<5.0-8.0) Urine Specific [place] 1.025 (1.000-1.030) Urine Protein Negative mg/dL (NEG-TRACE) Urine Glucose (UA) Negative mg/dL (NEG) Urine Ketones (Stick) 15 mg/dL (NEG) Urine Blood Negative (NEG) Urine Nitrite Negative (NEG) Urine Bilirubin Small (NEG) Urine Urobilinogen Dipstick 1.0 mg/dL (0.2 mg/dL) Urine Leukocyte Esterase Negative (NEG) Urine RBC Occ /HPF (0-2) Urine WBC Occ /HPF (0-4) Urine Squamous Epithelial Cells Few /LPF Urine Bacteria 0 /HPF (0-FEW) Urine Mucus Mod /LPF White Blood Count 7.9 x10^3/uL (4.0-11.0) Red Blood Count 3.87 x10^6/uL (4.30-5.70) Hemoglobin 11.9 g/dL (13.0-17.5) Hematocrit 35.5 % (39.0-53.0) Mean Corpuscular Volume 92 fL (79-100) Mean Corpuscular Hemoglobin 31 pg (25-35) Mean Corpuscular Hemoglobin Concent 34 g/dL (31-37) Red Cell Distribution Width 14.1 % (11.5-14.5) Platelet Count 200 x10^3/uL (140-400) Neutrophils (%) (Auto) 70 % (31-73) Lymphocytes (%) (Auto) 20 % (24-48) Monocytes (%) (Auto) 10 % (0-9) Eosinophils (%) (Auto) 0 % (0-3) Basophils (%) (Auto) 0 % (0-3) Neutrophils # (Auto) 5.6 x10^3/uL (1.8-7.7) Lymphocytes # (Auto) 1.5 x10^3/uL (1.0-4.8) Monocytes # (Auto) 0.8 x10^3/uL (0.0-1.1) Eosinophils # (Auto) 0.0 x10^3/uL (0.0-0.7) Basophils # (Auto) 0.0 x10^3/uL (0.0-0.2) Sodium Level 140 mmol/L (136-145) Potassium Level 4.1 mmol/L (3.5-5.1) Chloride Level 105 mmol/L (98-107) Carbon Dioxide Level 25 mmol/L (21-32) Anion Gap 10 (6-14) Blood Urea Nitrogen 33 mg/dL (8-26) Creatinine 1.2 mg/dL (0.7-1.3) Estimated GFR (Cockcroft-Gault) 58.9 BUN/Creatinine Ratio 28 (6-20) Glucose Level 85 mg/dL (70-99) Calcium Level 7.6 mg/dL (8.5-10.1) Total Bilirubin 0.4 mg/dL (0.2-1.0) Aspartate Amino Transf (AST/SGOT) 30 U/L (15-37) Alanine Aminotransferase (ALT/SGPT) 37 U/L (16-63) Alkaline Phosphatase 40 U/L (46-116) Total Protein 5.9 g/dL (6.4-8.2) Albumin 2.7 g/dL (3.4-5.0) Albumin/Globulin Ratio 0.8 (1.0-1.7) Comment Review of Relevant I have reviewed the following items quyen (where applicable) has been applied. Medications: Current Medications Medications (Trade) Dose Ordered Sig/Timur Route PRN Reason Start Time Stop Time Status Last Admin Dose Admin Albuterol/ Ipratropium (Duoneb) 3 ml RTQID NEB 01/03/20 08:00 01/03/20 13:04 DC 01/03/20 07:40 Albuterol/ Ipratropium (Duoneb) 3 ml 1X STAT NEB 01/03/20 08:29 01/03/20 08:34 DC 01/03/20 08:46 Cefazolin Sodium 3 gm/Dextrose 100 ml @ 200 mls/hr 1X PREOP PRN IV PRIOR TO PROCEDURE 01/03/20 09:00 01/03/20 12:00 DC 01/03/20 09:08 Fentanyl Citrate (Fentanyl 2ml Vial) 50 mcg PRN Q5MIN PRN IV MODERATE TO SEVERE PAIN 01/03/20 09:45 01/03/20 18:00 DC 01/03/20 16:18 Propofol 100 ml @ 2.135 mls/ hr CONT PRN IV SEE I/O RECORD 01/03/20 12:45 01/04/20 04:46 Sodium Chloride 1,000 ml @ 1,000 mls/hr 1X ONCE IV 01/03/20 13:00 01/03/20 13:59 DC 01/03/20 12:58 Albuterol/ Ipratropium (Duoneb) 3 ml Q4HRS NEB 01/03/20 13:00 01/04/20 04:00 Budesonide (Pulmicort) 0.5 mg RTBID NEB 01/03/20 20:00 01/03/20 20:00 Budesonide (Pulmicort) 0.5 mg 1X ONCE NEB 01/03/20 13:00 01/03/20 13:07 DC 01/03/20 13:28 Sodium Chloride 1,000 ml @ 999 mls/hr 1X ONCE IV 01/03/20 14:00 01/03/20 15:00 DC 01/03/20 13:51 Heparin Sodium (Porcine) (Heparin Sodium) 5,000 unit Q8HRS SQ 01/03/20 14:00 01/04/20 05:33 Nystatin (Nystop) 1 angy BID TP 01/03/20 15:45 01/03/20 20:24 Albumin Human 500 ml @ 125 mls/hr 1X ONCE IV 01/03/20 18:15 01/03/20 22:14 DC 01/03/20 18:23 Fentanyl Citrate 30 ml @ 2.5 mls/hr CONT PRN IV SEE PROTOCOL 01/03/20 19:15 01/04/20 00:54 Justicifation of Admission Dx: Justifications for Admission: Justification of Admission Dx: Yes RANGEL RASHID MD Jan 04, 2020 07:42
--- NOTE | 2020-01-04 07:52 | CONS ---
DATE OF CONSULTATION: 01/04/2020 I was asked to see this 74-year-old gentleman for acute respiratory failure. HISTORY OF PRESENT ILLNESS: The patient has history of more than [id number] smoking, continues to smoke about 1-2 packs per day. He presented to [facility] with abdominal pain, shortness of breath, and vomiting. The patient stated that he had this bulging in his abdomen, which has been getting bigger. CT of abdomen showed incarcerated hernia with obstruction. He underwent exploratory laparotomy with repair of incarcerated ventral hernia with mesh yesterday. He had an ABG after the procedure, pH 7.17, pCO2 of 70, pO2 of 200 on FiO2 100%, so he was not extubated and transferred to ICU. I did change his vent setting to assist control, increase rate to 24, increase tidal volume to 550. His repeat ABG yesterday was pH 7.34, pCO2 of 42, pO2 of 103 on 80% FiO2. Currently, he is on the ventilator. He is on propofol and fentanyl. He has small amount of ET tube secretion. He is on 60% FiO2 and PEEP of 5. He is sedated on the ventilator. In [facility] ER, an NG tube was placed. The patient developed AFib with rapid ventricular response, was started on Cardizem. Currently, he is in sinus rhythm; is not on Cardizem. Cardiology is consulted. PAST MEDICAL HISTORY: COPD, smoker, total hip replacement. ALLERGIES: No known drug allergies. MEDICATIONS: Currently, he is on heparin 5000 units every 8. I did start him on DuoNeb and budesonide. SOCIAL HISTORY: History of more than [id number] smoking, continues to smoke about 1-2 packs per day. FAMILY HISTORY: Hypertension per chart. REVIEW OF SYSTEMS: Unable to obtain as the patient is intubated and sedated. PHYSICAL EXAMINATION: GENERAL: This is an obese gentleman. VITAL SIGNS: His O2 saturation on 60%, FiO2 is 95%, respiratory rate 24, heart rate 70, blood pressure 100/64, temperature 98.6. HEENT: Normocephalic, atraumatic. Pupils equal, round, reactive to light. He is orally intubated. Nose is clear. NECK: Short and thick. There is no lymphadenopathy or thyromegaly. CARDIOVASCULAR: Regular rate and rhythm. PMI is nondisplaced. CHEST: Inspection is normal. LUNGS: There are bibasilar crackles, dullness at the left base. ABDOMEN: Distended, diminished. There is no bowel sounds. EXTREMITIES: There is no edema. LYMPHATICS: There is no lymphadenopathy. NEUROLOGIC: He is on the ventilator and sedated. SKIN: Chronic changes. LABORATORY DATA: I reviewed the following lab data: Chest x-ray this morning shows ET tube is in good position. There are small left infiltrates versus atelectasis versus effusion. ABG as mentioned as above. COVID-19 negative. Sodium 140, potassium 4.1, chloride 105, CO2 of 25, BUN 33, creatinine 1.2, GFR 58. AST 30, ALT 37. WBC 7.9, hemoglobin 11.9, platelet 200. IMPRESSION: 1. Acute hypoxemic hypercarbic respiratory failure, expected multifactorial in etiology. 2. Abnormal chest x-ray. 3. Chronic obstructive pulmonary disease. 4. Obesity, probably obstructive sleep apnea-hypopnea syndrome. 5. Incarcerated ventral hernia, status post repair of incarcerated ventral hernia with mesh, postop day 1. 6. Hypertension. 7. Brief episode of atrial fibrillation with rapid ventricular response. PLAN AND RECOMMENDATIONS: 1. Titrate FiO2 to keep O2 saturation 94%. 2. Continue ventilator support until he is more stable. I personally did increase PEEP to 7. We will see if we can titrate down FiO2 to keep saturation more than 94%. 3. Continue bronchodilator every 4 hours. 4. Inhaled corticosteroid. 5. Cardiology is consulted. 6. Elevate head of bed. 7. Heparin for DVT prophylaxis. 8. Start Pepcid for stress ulcer prophylaxis. 9. He will need sleep study as an outpatient. 10. He will need to quit smoking forever. 11. The findings and recommendations were discussed with RN and dr Gonzalez. Thank you very much for allowing me to participate in care of this very nice gentleman. The patient is critically ill. This is critical care time 30 minutes without overlap. AGUSTINA ALONSO M.D. : BHAVNA/tevin JOB#: [id number] / [id number] VENITA
[2020-01-04] MEDS: BUDESONIDE 0.5 MG/2 ML NEBU. NEB SCH ×2 (08:42→19:49)
[2020-01-04 08:48] LABS: BASE EXCESS ABG -2 mmol/L (-3-3); HCO3 ABG 23 mmol/L (21-28); PCO2 ABG 38 mmHg (35-46); PO2 ABG 85 mmHg (65-108); SAT O2 ABG 96 % (92-99)
[2020-01-04 08:50] LABS: FIO2 ABG 60
[2020-01-04] MEDS: NYSTATIN TOPICAL POWDER 15GM BOTTLE. TP SCH ×2 (09:45→21:10)
--- NOTE | 2020-01-04 12:51 | PDOC ---
[facility] 01/04/20 1251: SURGICAL PROGRESS NOTE DATE: 01/04/20 TIME: 12:50 Subjective vent Vital Signs Vital Signs Date Time Temp Pulse Resp B/P (MAP) Pulse Ox O2 Delivery O2 Flow Rate FiO2 01/04/20 12:13 24 92 Ventilator 01/04/20 11:00 78 99/60 (73) 01/04/20 08:00 98.6 98.6 01/04/20 01:24 2.0 I&O Intake and Output 01/04/20 07:00 Intake Total 2910 ml Output Total 500 ml Balance 2410 ml IV Total 2910 ml Output Urine Total 405 ml Drainage Total 95 ml # Voids 1 PATIENT HAS A LANCASTER: Yes General: Other (sedated ) Abdomen: Soft, Other (binder in place, drain serosang ) Labs Laboratory Tests Test 01/02/20 22:15 01/03/20 07:10 01/03/20 11:40 01/03/20 15:25 SARS-CoV-2 Antigen (Rapid) Negative (NEGATIVE) White Blood Count 6.6 x10^3/uL (4.0-11.0) Red Blood Count 4.58 x10^6/uL (4.30-5.70) Hemoglobin 14.1 g/dL (13.0-17.5) Hematocrit 41.5 % (39.0-53.0) Mean Corpuscular Volume 91 fL (79-100) Mean Corpuscular Hemoglobin 31 pg (25-35) Mean Corpuscular Hemoglobin Concent 34 g/dL (31-37) Red Cell Distribution Width 14.1 % (11.5-14.5) Platelet Count 236 x10^3/uL (140-400) Neutrophils (%) (Auto) 62 % (31-73) Lymphocytes (%) (Auto) 24 % (24-48) Monocytes (%) (Auto) 12 % (0-9) Eosinophils (%) (Auto) 1 % (0-3) Basophils (%) (Auto) 1 % (0-3) Neutrophils # (Auto) 4.1 x10^3/uL (1.8-7.7) Lymphocytes # (Auto) 1.6 x10^3/uL (1.0-4.8) Monocytes # (Auto) 0.8 x10^3/uL (0.0-1.1) Eosinophils # (Auto) 0.1 x10^3/uL (0.0-0.7) Basophils # (Auto) 0.0 x10^3/uL (0.0-0.2) Prothrombin Time 14.3 SEC (11.7-14.0) Prothromb Time International Ratio 1.2 (0.8-1.1) Sodium Level 138 mmol/L (136-145) Potassium Level 4.0 mmol/L (3.5-5.1) Chloride Level 102 mmol/L (98-107) Carbon Dioxide Level 28 mmol/L (21-32) Anion Gap 8 (6-14) Blood Urea Nitrogen 33 mg/dL (8-26) Creatinine 1.5 mg/dL (0.7-1.3) Estimated GFR (Cockcroft-Gault) 45.5 BUN/Creatinine Ratio 22 (6-20) Glucose Level 82 mg/dL (70-99) Calcium Level 7.8 mg/dL (8.5-10.1) Total Bilirubin 0.4 mg/dL (0.2-1.0) Aspartate Amino Transf (AST/SGOT) 33 U/L (15-37) Alanine Aminotransferase (ALT/SGPT) 34 U/L (16-63) Alkaline Phosphatase 56 U/L (46-116) Total Protein 6.6 g/dL (6.4-8.2) Albumin 2.9 g/dL (3.4-5.0) Albumin/Globulin Ratio 0.8 (1.0-1.7) O2 Saturation 99 % (92-99) 97 % (92-99) Arterial Blood pH 7.17 (7.35-7.45) 7.34 (7.35-7.45) Arterial Blood pCO2 at Patient Temp 70 mmHg (35-46) 42 mmHg (35-46) Arterial Blood pO2 at Patient Temp 200 mmHg (65-108) 103 mmHg (65-108) Arterial Blood HCO3 25 mmol/L (21-28) 22 mmol/L (21-28) Arterial Blood Base Excess -5 mmol/L (-3-3) -3 mmol/L (-3-3) FiO2 100 80 Test 01/03/20 18:45 01/04/20 04:30 01/04/20 08:40 Urine Collection Type Unknown Urine Color Yellow Urine Clarity Clear Urine pH 5.5 (<5.0-8.0) Urine Specific [place] 1.025 (1.000-1.030) Urine Protein Negative mg/dL (NEG-TRACE) Urine Glucose (UA) Negative mg/dL (NEG) Urine Ketones (Stick) 15 mg/dL (NEG) Urine Blood Negative (NEG) Urine Nitrite Negative (NEG) Urine Bilirubin Small (NEG) Urine Urobilinogen Dipstick 1.0 mg/dL (0.2 mg/dL) Urine Leukocyte Esterase Negative (NEG) Urine RBC Occ /HPF (0-2) Urine WBC Occ /HPF (0-4) Urine Squamous Epithelial Cells Few /LPF Urine Bacteria 0 /HPF (0-FEW) Urine Mucus Mod /LPF White Blood Count 7.9 x10^3/uL (4.0-11.0) Red Blood Count 3.87 x10^6/uL (4.30-5.70) Hemoglobin 11.9 g/dL (13.0-17.5) Hematocrit 35.5 % (39.0-53.0) Mean Corpuscular Volume 92 fL (79-100) Mean Corpuscular Hemoglobin 31 pg (25-35) Mean Corpuscular Hemoglobin Concent 34 g/dL (31-37) Red Cell Distribution Width 14.1 % (11.5-14.5) Platelet Count 200 x10^3/uL (140-400) Neutrophils (%) (Auto) 70 % (31-73) Lymphocytes (%) (Auto) 20 % (24-48) Monocytes (%) (Auto) 10 % (0-9) Eosinophils (%) (Auto) 0 % (0-3) Basophils (%) (Auto) 0 % (0-3) Neutrophils # (Auto) 5.6 x10^3/uL (1.8-7.7) Lymphocytes # (Auto) 1.5 x10^3/uL (1.0-4.8) Monocytes # (Auto) 0.8 x10^3/uL (0.0-1.1) Eosinophils # (Auto) 0.0 x10^3/uL (0.0-0.7) Basophils # (Auto) 0.0 x10^3/uL (0.0-0.2) Sodium Level 140 mmol/L (136-145) Potassium Level 4.1 mmol/L (3.5-5.1) Chloride Level 105 mmol/L (98-107) Carbon Dioxide Level 25 mmol/L (21-32) Anion Gap 10 (6-14) Blood Urea Nitrogen 33 mg/dL (8-26) Creatinine 1.2 mg/dL (0.7-1.3) Estimated GFR (Cockcroft-Gault) 58.9 BUN/Creatinine Ratio 28 (6-20) Glucose Level 85 mg/dL (70-99) Calcium Level 7.6 mg/dL (8.5-10.1) Total Bilirubin 0.4 mg/dL (0.2-1.0) Aspartate Amino Transf (AST/SGOT) 30 U/L (15-37) Alanine Aminotransferase (ALT/SGPT) 37 U/L (16-63) Alkaline Phosphatase 40 U/L (46-116) Total Protein 5.9 g/dL (6.4-8.2) Albumin 2.7 g/dL (3.4-5.0) Albumin/Globulin Ratio 0.8 (1.0-1.7) O2 Saturation 96 % (92-99) Arterial Blood pH 7.39 (7.35-7.45) Arterial Blood pCO2 at Patient Temp 38 mmHg (35-46) Arterial Blood pO2 at Patient Temp 85 mmHg (65-108) Arterial Blood HCO3 23 mmol/L (21-28) Arterial Blood Base Excess -2 mmol/L (-3-3) FiO2 60 Laboratory Tests Test 01/03/20 15:25 01/03/20 18:45 01/04/20 04:30 01/04/20 08:40 O2 Saturation 97 % (92-99) 96 % (92-99) Arterial Blood pH 7.34 (7.35-7.45) 7.39 (7.35-7.45) Arterial Blood pCO2 at Patient Temp 42 mmHg (35-46) 38 mmHg (35-46) Arterial Blood pO2 at Patient Temp 103 mmHg (65-108) 85 mmHg (65-108) Arterial Blood HCO3 22 mmol/L (21-28) 23 mmol/L (21-28) Arterial Blood Base Excess -3 mmol/L (-3-3) -2 mmol/L (-3-3) FiO2 80 60 Urine Collection Type Unknown Urine Color Yellow Urine Clarity Clear Urine pH 5.5 (<5.0-8.0) Urine Specific [place] 1.025 (1.000-1.030) Urine Protein Negative mg/dL (NEG-TRACE) Urine Glucose (UA) Negative mg/dL (NEG) Urine Ketones (Stick) 15 mg/dL (NEG) Urine Blood Negative (NEG) Urine Nitrite Negative (NEG) Urine Bilirubin Small (NEG) Urine Urobilinogen Dipstick 1.0 mg/dL (0.2 mg/dL) Urine Leukocyte Esterase Negative (NEG) Urine RBC Occ /HPF (0-2) Urine WBC Occ /HPF (0-4) Urine Squamous Epithelial Cells Few /LPF Urine Bacteria 0 /HPF (0-FEW) Urine Mucus Mod /LPF White Blood Count 7.9 x10^3/uL (4.0-11.0) Red Blood Count 3.87 x10^6/uL (4.30-5.70) Hemoglobin 11.9 g/dL (13.0-17.5) Hematocrit 35.5 % (39.0-53.0) Mean Corpuscular Volume 92 fL (79-100) Mean Corpuscular Hemoglobin 31 pg (25-35) Mean Corpuscular Hemoglobin Concent 34 g/dL (31-37) Red Cell Distribution Width 14.1 % (11.5-14.5) Platelet Count 200 x10^3/uL (140-400) Neutrophils (%) (Auto) 70 % (31-73) Lymphocytes (%) (Auto) 20 % (24-48) Monocytes (%) (Auto) 10 % (0-9) Eosinophils (%) (Auto) 0 % (0-3) Basophils (%) (Auto) 0 % (0-3) Neutrophils # (Auto) 5.6 x10^3/uL (1.8-7.7) Lymphocytes # (Auto) 1.5 x10^3/uL (1.0-4.8) Monocytes # (Auto) 0.8 x10^3/uL (0.0-1.1) Eosinophils # (Auto) 0.0 x10^3/uL (0.0-0.7) Basophils # (Auto) 0.0 x10^3/uL (0.0-0.2) Sodium Level 140 mmol/L (136-145) Potassium Level 4.1 mmol/L (3.5-5.1) Chloride Level 105 mmol/L (98-107) Carbon Dioxide Level 25 mmol/L (21-32) Anion Gap 10 (6-14) Blood Urea Nitrogen 33 mg/dL (8-26) Creatinine 1.2 mg/dL (0.7-1.3) Estimated GFR (Cockcroft-Gault) 58.9 BUN/Creatinine Ratio 28 (6-20) Glucose Level 85 mg/dL (70-99) Calcium Level 7.6 mg/dL (8.5-10.1) Total Bilirubin 0.4 mg/dL (0.2-1.0) Aspartate Amino Transf (AST/SGOT) 30 U/L (15-37) Alanine Aminotransferase (ALT/SGPT) 37 U/L (16-63) Alkaline Phosphatase 40 U/L (46-116) Total Protein 5.9 g/dL (6.4-8.2) Albumin 2.7 g/dL (3.4-5.0) Albumin/Globulin Ratio 0.8 (1.0-1.7) Assessment/Plan s/p VIH supportive measures Justicifation of Admission Dx: Justifications for Admission: Justification of Admission Dx: Yes LESTER PITT MD 01/05/20 1321: SURGICAL PROGRESS NOTE Assessment/Plan Agree with above [facility] [employer] [employer] Jan 04, 2020 12:51 LESTER PTIT MD Jan 05, 2020 13:21
--- NOTE | 2020-01-04 13:37 | PDOC2 ---
CONSULT Date of Consult Date of Consult DATE: 01/04/20 TIME: 13:37 Reason for Consult Reason for Consult: Atrial fibrillation Referring Physician Referring Physician: Dr. Gonzalez Identification/Chief Complaint Chief Complaint Abdominal pain Source Source: Chart review History of Present Illness Reason for Visit: 74-year-old male initially presented to [facility] ED with abdominal pain, vomiting and shortness of breath. He was diagnosed with incarcerated ventral hernia and underwent surgical repair yesterday. He was found to have atrial fibrillation with RVR on initial presentation prompting cardiology consultation. He is presently back in sinus rhythm. He is currently intubated and sedated and hence no significant history can be obtained from patient but according to family, he did not have any prior history of cardiac arrhythmias. Past Medical History Pulmonary: Bronchitis, COPD Past Surgical History Past Surgical History: Total hip replacement Family History Family History: Chronic Bronchitis, High Cholestrol, Hypertension Social History 1 pack per day ALCOHOL: occassional Drugs: None Current Medications Current Medications Current Medications Albuterol/ Ipratropium (Duoneb) 3 ml RTQID NEB Last administered on 01/03/20at 07:40; Start 01/03/20 at 08:00; Stop 01/03/20 at 13:04; Status DC Albuterol/ Ipratropium (Duoneb) 3 ml 1X ONCE NEB Last administered on 01/03/20at 01:57; Start 01/03/20 at 02:00; Stop 01/03/20 at 02:01; Status DC Propofol (Diprivan) 200 mg STK-MED ONCE IV ; Start 01/03/20 at 07:06; Stop 01/03/20 at 07:06; Status DC Lidocaine HCl (Lidocaine Pf 2% Vial) 5 ml STK-MED ONCE .ROUTE ; Start 01/03/20 at 07:06; Stop 01/03/20 at 07:07; Status DC Dexamethasone Sodium Phosphate (Decadron) 4 mg STK-MED ONCE .ROUTE ; Start 01/03/20 at 07:06; Stop 01/03/20 at 07:07; Status DC Ondansetron HCl (Zofran) 4 mg STK-MED ONCE .ROUTE ; Start 01/03/20 at 07:06; Stop 01/03/20 at 07:07; Status DC Succinylcholine Chloride (Anectine) 200 mg STK-MED ONCE .ROUTE ; Start 01/03/20 a t 07:08; Stop 01/03/20 at 07:08; Status DC Rocuronium Empire (Zemuron) 50 mg STK-MED ONCE .ROUTE ; Start 01/03/20 at 07:08; Stop 01/03/20 at 07:09; Status DC Ringer's Solution 1,000 ml @ 75 mls/hr 1X ONCE IV Last administered on 01/03/20at 07:30; Start 01/03/20 at 07:30; Stop 01/04/20 at 03:25; Status DC Ondansetron HCl (Zofran) 4 mg PRN Q4HRS PRN IV NAUSEA/VOMITING; Start 01/03/20 at 07:30 Acetaminophen (Tylenol) 650 mg PRN Q4HRS PRN [place] TEMP OVER 100.4F OR MILD PAIN; Start 01/03/20 at 07:30 Acetaminophen (Tylenol Supp) 650 mg PRN Q4HRS PRN [place] TEMP OVER 100.4F OR MILD PAIN; Start 01/03/20 at 07:30 Fentanyl Citrate (Fentanyl 2ml Vial) 25 mcg PRN Q2HR PRN IVP MODERATE PAIN; Start 01/03/20 at 07:30 Sevoflurane (Ultane) 60 ml STK-MED ONCE IH ; Start 01/03/20 at 07:55; Stop 01/03/20 at 07:55; Status DC Fentanyl Citrate (Fentanyl 2ml Vial) 100 mcg STK-MED ONCE .ROUTE ; Start 01/03/20 at 07:55; Stop 01/03/20 at 07:55; Status DC Albuterol/ Ipratropium (Duoneb) 3 ml 1X STAT NEB Last administered on 01/03/20at 08:46; Start 01/03/20 at 08:29; Stop 01/03/20 at 08:34; Status DC Cefazolin Sodium 3 gm/Dextrose 100 ml @ 200 mls/hr 1X PREOP PRN IV PRIOR TO PROCEDURE Last administered on 01/03/20at 09:08; Start 01/03/20 at 09:00; Stop 01/03/20 at 12:00; Status DC Vasopressin (Vasostrict) 20 unit STK-MED ONCE .ROUTE ; Start 01/03/20 at 09:25; Stop 01/03/20 at 09:25; Status DC Ondansetron HCl (Zofran) 4 mg PRN Q6HRS PRN IV NAUSEA/VOMITING; Start 01/03/20 at 09:45; Stop 01/03/20 at 18:00; Status DC Fentanyl Citrate (Fentanyl 2ml Vial) 25 mcg PRN Q5MIN PRN IV MILD PAIN 1-3; Start 01/03/20 at 09:45; Stop 01/03/20 at 18:00; Status DC Fentanyl Citrate (Fentanyl 2ml Vial) 50 mcg PRN Q5MIN PRN IV MODERATE TO SEVERE PAIN Last administered on 01/03/20at 16:18; Start 01/03/20 at 09:45; Stop 01/03/20 at 18:00; Status DC Morphine Sulfate (Morphine Sulfate) 1 mg PRN Q10MIN PRN IV SEVERE PAIN 7-10; Start 01/03/20 at 09:45; Stop 01/03/20 at 18:00; Status DC Ringer's Solution 1,000 ml @ 30 mls/hr Q24H IV Last administered on 01/04/20at 09:46; Start 01/03/20 at 10:00; Stop 01/03/20 at 18:00; Status DC Lidocaine HCl (Xylocaine-Mpf 1% 2ml Vial) 2 ml PRN 1X PRN ID PRIOR TO IV START; Start 01/03/20 at 09:45; Stop 01/03/20 at 18:00; Status DC Hydromorphone HCl (Dilaudid) 0.5 mg PRN Q10MIN PRN IV SEV PAIN, Second choice; Start 01/03/20 at 09:45; Stop 01/03/20 at 18:00; Status DC Prochlorperazine Edisylate (Compazine) 5 mg PACU PRN PRN IV NAUSEA, MRX1; Start 01/03/20 at 09:45; Stop 01/03/20 at 18:00; Status DC Rocuronium Empire (Zemuron) 50 mg STK-MED ONCE .ROUTE ; Start 01/03/20 at 09:36; Stop 01/03/20 at 09:36; Status DC Phenylephrine HCl (PHENYLEPHRINE in 0.9% NACL PF) 1 mg STK-MED ONCE IV ; Start 01/03/20 at 10:00; Stop 01/03/20 at 10:01; Status DC Ephedrine Sulfate (ePHEDrine PF IN SALINE SYRINGE) 50 mg STK-MED ONCE IV ; Start 01/03/20 at 10:00; Stop 01/03/20 at 10:01; Status DC Glycopyrrolate (Robinul) 1 mg STK-MED ONCE .ROUTE ; Start 01/03/20 at 10:25; Stop 01/03/20 at 10:26; Status DC Neostigmine Empire (Neostigmine Methylsulfate) 5 mg STK-MED ONCE .ROUTE ; Sta rt 01/03/20 at 10:26; Stop 01/03/20 at 10:26; Status DC Midazolam HCl (Versed) 2 mg STK-MED ONCE .ROUTE ; Start 01/03/20 at 11:10; Stop 01/03/20 at 11:11; Status DC Fentanyl Citrate (Fentanyl 2ml Vial) 100 mcg STK-MED ONCE .ROUTE ; Start 01/03/20 at 11:40; Stop 01/03/20 at 11:40; Status DC Propofol 100 ml @ As Directed STK-MED ONCE IV ; Start 01/03/20 at 12:12; Stop 01/03/20 at 12:12; Status DC Propofol 100 ml @ 2.135 mls/ hr CONT PRN IV SEE I/O RECORD Last administered on 01/04/20at 09:45; Start 01/03/20 at 12:45 Fentanyl Citrate (Fentanyl 2ml Vial) 50 mcg PRN Q2HR PRN IVP MODERATE TO SEVERE PAIN; Start 01/03/20 at 12:45 Sodium Chloride 1,000 ml @ 1,000 mls/hr 1X ONCE IV Last administered on 01/03/20at 12:58; Start 01/03/20 at 13:00; Stop 01/03/20 at 13:59; Status DC Albuterol/ Ipratropium (Duoneb) 3 ml Q4HRS NEB Last administered on 01/04/20at 11:43; Start 01/03/20 at 13:00 Budesonide (Pulmicort) 0.5 mg RTBID NEB Last administered on 01/04/20at 08:42; Start 01/03/20 at 20:00 Budesonide (Pulmicort) 0.5 mg 1X ONCE NEB Last administered on 01/03/20at 13:28; Start 01/03/20 at 13:00; Stop 01/03/20 at 13:07; Status DC Sodium Chloride 1,000 ml @ 999 mls/hr 1X ONCE IV Last administered on 01/03/20at 13:51; Start 01/03/20 at 14:00; Stop 01/03/20 at 15:00; Status DC Heparin Sodium (Porcine) (Heparin Sodium) 5,000 unit Q8HRS SQ Last administered on 01/04/20at 05:33; Start 01/03/20 at 14:00 Nystatin (Nystop) 1 angy BID TP Last administered on 01/04/20at 09:45; Start 01/03/20 at 15:45 Albumin Human 500 ml @ 125 mls/hr 1X ONCE IV Last administered on 01/03/20at 18:23; Start 01/03/20 at 18:15; Stop 01/03/20 at 22:14; Status DC Norepinephrine Bitartrate 8 mg/ Dextrose 258 ml @ 27.535 mls/ hr CONT PRN IV PER PROTOCOL; Start 01/03/20 at 18:15 Fentanyl Citrate 30 ml @ 2.5 mls/hr CONT PRN IV SEE PROTOCOL Last administered on 01/04/20at 12:13; Start 01/03/20 at 19:15 Famotidine (Pepcid Vial) 20 mg QHS IVP ; Start 01/04/20 at 21:00 Allergies Allergies: Coded Allergies: No Known Drug Allergies (Unverified , 01/03/20) ROS Review of System Cannot be obtained since patient is intubated Physical Exam General: Other (Intubated and sedated) HEENT: Atraumatic Lungs: Other (Decreased air entry bases) Heart: Regular rate, No murmurs Abdomen: Other (Bandaged surgical wound, no bowel sounds) Extremities: No edema Vitals VITALS Vital Signs Date Time Temp Pulse Resp B/P (MAP) Pulse Ox O2 Delivery O2 Flow Rate FiO2 01/04/20 13:03 24 92 Ventilator 01/04/20 13:00 81 100/58 (72) 01/04/20 12:00 98.5 98.5 01/04/20 01:24 2.0 Labs Labs Laboratory Tests Test 01/02/20 22:15 01/03/20 07:10 01/03/20 11:40 01/03/20 15:25 SARS-CoV-2 Antigen (Rapid) Negative (NEGATIVE) White Blood Count 6.6 x10^3/uL (4.0-11.0) Red Blood Count 4.58 x10^6/uL (4.30-5.70) Hemoglobin 14.1 g/dL (13.0-17.5) Hematocrit 41.5 % (39.0-53.0) Mean Corpuscular Volume 91 fL (79-100) Mean Corpuscular Hemoglobin 31 pg (25-35) Mean Corpuscular Hemoglobin Concent 34 g/dL (31-37) Red Cell Distribution Width 14.1 % (11.5-14.5) Platelet Count 236 x10^3/uL (140-400) Neutrophils (%) (Auto) 62 % (31-73) Lymphocytes (%) (Auto) 24 % (24-48) Monocytes (%) (Auto) 12 % (0-9) Eosinophils (%) (Auto) 1 % (0-3) Basophils (%) (Auto) 1 % (0-3) Neutrophils # (Auto) 4.1 x10^3/uL (1.8-7.7) Lymphocytes # (Auto) 1.6 x10^3/uL (1.0-4.8) Monocytes # (Auto) 0.8 x10^3/uL (0.0-1.1) Eosinophils # (Auto) 0.1 x10^3/uL (0.0-0.7) Basophils # (Auto) 0.0 x10^3/uL (0.0-0.2) Prothrombin Time 14.3 SEC (11.7-14.0) Prothromb Time International Ratio 1.2 (0.8-1.1) Sodium Level 138 mmol/L (136-145) Potassium Level 4.0 mmol/L (3.5-5.1) Chloride Level 102 mmol/L (98-107) Carbon Dioxide Level 28 mmol/L (21-32) Anion Gap 8 (6-14) Blood Urea Nitrogen 33 mg/dL (8-26) Creatinine 1.5 mg/dL (0.7-1.3) Estimated GFR (Cockcroft-Gault) 45.5 BUN/Creatinine Ratio 22 (6-20) Glucose Level 82 mg/dL (70-99) Calcium Level 7.8 mg/dL (8.5-10.1) Total Bilirubin 0.4 mg/dL (0.2-1.0) Aspartate Amino Transf (AST/SGOT) 33 U/L (15-37) Alanine Aminotransferase (ALT/SGPT) 34 U/L (16-63) Alkaline Phosphatase 56 U/L (46-116) Total Protein 6.6 g/dL (6.4-8.2) Albumin 2.9 g/dL (3.4-5.0) Albumin/Globulin Ratio 0.8 (1.0-1.7) O2 Saturation 99 % (92-99) 97 % (92-99) Arterial Blood pH 7.17 (7.35-7.45) 7.34 (7.35-7.45) Arterial Blood pCO2 at Patient Temp 70 mmHg (35-46) 42 mmHg (35-46) Arterial Blood pO2 at Patient Temp 200 mmHg (65-108) 103 mmHg (65-108) Arterial Blood HCO3 25 mmol/L (21-28) 22 mmol/L (21-28) Arterial Blood Base Excess -5 mmol/L (-3-3) -3 mmol/L (-3-3) FiO2 100 80 Test 01/03/20 18:45 01/04/20 04:30 01/04/20 08:40 Urine Collection Type Unknown Urine Color Yellow Urine Clarity Clear Urine pH 5.5 (<5.0-8.0) Urine Specific [place] 1.025 (1.000-1.030) Urine Protein Negative mg/dL (NEG-TRACE) Urine Glucose (UA) Negative mg/dL (NEG) Urine Ketones (Stick) 15 mg/dL (NEG) Urine Blood Negative (NEG) Urine Nitrite Negative (NEG) Urine Bilirubin Small (NEG) Urine Urobilinogen Dipstick 1.0 mg/dL (0.2 mg/dL) Urine Leukocyte Esterase Negative (NEG) Urine RBC Occ /HPF (0-2) Urine WBC Occ /HPF (0-4) Urine Squamous Epithelial Cells Few /LPF Urine Bacteria 0 /HPF (0-FEW) Urine Mucus Mod /LPF White Blood Count 7.9 x10^3/uL (4.0-11.0) Red Blood Count 3.87 x10^6/uL (4.30-5.70) Hemoglobin 11.9 g/dL (13.0-17.5) Hematocrit 35.5 % (39.0-53.0) Mean Corpuscular Volume 92 fL (79-100) Mean Corpuscular Hemoglobin 31 pg (25-35) Mean Corpuscular Hemoglobin Concent 34 g/dL (31-37) Red Cell Distribution Width 14.1 % (11.5-14.5) Platelet Count 200 x10^3/uL (140-400) Neutrophils (%) (Auto) 70 % (31-73) Lymphocytes (%) (Auto) 20 % (24-48) Monocytes (%) (Auto) 10 % (0-9) Eosinophils (%) (Auto) 0 % (0-3) Basophils (%) (Auto) 0 % (0-3) Neutrophils # (Auto) 5.6 x10^3/uL (1.8-7.7) Lymphocytes # (Auto) 1.5 x10^3/uL (1.0-4.8) Monocytes # (Auto) 0.8 x10^3/uL (0.0-1.1) Eosinophils # (Auto) 0.0 x10^3/uL (0.0-0.7) Basophils # (Auto) 0.0 x10^3/uL (0.0-0.2) Sodium Level 140 mmol/L (136-145) Potassium Level 4.1 mmol/L (3.5-5.1) Chloride Level 105 mmol/L (98-107) Carbon Dioxide Level 25 mmol/L (21-32) Anion Gap 10 (6-14) Blood Urea Nitrogen 33 mg/dL (8-26) Creatinine 1.2 mg/dL (0.7-1.3) Estimated GFR (Cockcroft-Gault) 58.9 BUN/Creatinine Ratio 28 (6-20) Glucose Level 85 mg/dL (70-99) Calcium Level 7.6 mg/dL (8.5-10.1) Total Bilirubin 0.4 mg/dL (0.2-1.0) Aspartate Amino Transf (AST/SGOT) 30 U/L (15-37) Alanine Aminotransferase (ALT/SGPT) 37 U/L (16-63) Alkaline Phosphatase 40 U/L (46-116) Total Protein 5.9 g/dL (6.4-8.2) Albumin 2.7 g/dL (3.4-5.0) Albumin/Globulin Ratio 0.8 (1.0-1.7) O2 Saturation 96 % (92-99) Arterial Blood pH 7.39 (7.35-7.45) Arterial Blood pCO2 at Patient Temp 38 mmHg (35-46) Arterial Blood pO2 at Patient Temp 85 mmHg (65-108) Arterial Blood HCO3 23 mmol/L (21-28) Arterial Blood Base Excess -2 mmol/L (-3-3) FiO2 60 Laboratory Tests Test 01/03/20 15:25 01/03/20 18:45 01/04/20 04:30 01/04/20 08:40 O2 Saturation 97 % (92-99) 96 % (92-99) Arterial Blood pH 7.34 (7.35-7.45) 7.39 (7.35-7.45) Arterial Blood pCO2 at Patient Temp 42 mmHg (35-46) 38 mmHg (35-46) Arterial Blood pO2 at Patient Temp 103 mmHg (65-108) 85 mmHg (65-108) Arterial Blood HCO3 22 mmol/L (21-28) 23 mmol/L (21-28) Arterial Blood Base Excess -3 mmol/L (-3-3) -2 mmol/L (-3-3) FiO2 80 60 Urine Collection Type Unknown Urine Color Yellow Urine Clarity Clear Urine pH 5.5 (<5.0-8.0) Urine Specific [place] 1.025 (1.000-1.030) Urine Protein Negative mg/dL (NEG-TRACE) Urine Glucose (UA) Negative mg/dL (NEG) Urine Ketones (Stick) 15 mg/dL (NEG) Urine Blood Negative (NEG) Urine Nitrite Negative (NEG) Urine Bilirubin Small (NEG) Urine Urobilinogen Dipstick 1.0 mg/dL (0.2 mg/dL) Urine Leukocyte Esterase Negative (NEG) Urine RBC Occ /HPF (0-2) Urine WBC Occ /HPF (0-4) Urine Squamous Epithelial Cells Few /LPF Urine Bacteria 0 /HPF (0-FEW) Urine Mucus Mod /LPF White Blood Count 7.9 x10^3/uL (4.0-11.0) Red Blood Count 3.87 x10^6/uL (4.30-5.70) Hemoglobin 11.9 g/dL (13.0-17.5) Hematocrit 35.5 % (39.0-53.0) Mean Corpuscular Volume 92 fL (79-100) Mean Corpuscular Hemoglobin 31 pg (25-35) Mean Corpuscular Hemoglobin Concent 34 g/dL (31-37) Red Cell Distribution Width 14.1 % (11.5-14.5) Platelet Count 200 x10^3/uL (140-400) Neutrophils (%) (Auto) 70 % (31-73) Lymphocytes (%) (Auto) 20 % (24-48) Monocytes (%) (Auto) 10 % (0-9) Eosinophils (%) (Auto) 0 % (0-3) Basophils (%) (Auto) 0 % (0-3) Neutrophils # (Auto) 5.6 x10^3/uL (1.8-7.7) Lymphocytes # (Auto) 1.5 x10^3/uL (1.0-4.8) Monocytes # (Auto) 0.8 x10^3/uL (0.0-1.1) Eosinophils # (Auto) 0.0 x10^3/uL (0.0-0.7) Basophils # (Auto) 0.0 x10^3/uL (0.0-0.2) Sodium Level 140 mmol/L (136-145) Potassium Level 4.1 mmol/L (3.5-5.1) Chloride Level 105 mmol/L (98-107) Carbon Dioxide Level 25 mmol/L (21-32) Anion Gap 10 (6-14) Blood Urea Nitrogen 33 mg/dL (8-26) Creatinine 1.2 mg/dL (0.7-1.3) Estimated GFR (Cockcroft-Gault) 58.9 BUN/Creatinine Ratio 28 (6-20) Glucose Level 85 mg/dL (70-99) Calcium Level 7.6 mg/dL (8.5-10.1) Total Bilirubin 0.4 mg/dL (0.2-1.0) Aspartate Amino Transf (AST/SGOT) 30 U/L (15-37) Alanine Aminotransferase (ALT/SGPT) 37 U/L (16-63) Alkaline Phosphatase 40 U/L (46-116) Total Protein 5.9 g/dL (6.4-8.2) Albumin 2.7 g/dL (3.4-5.0) Albumin/Globulin Ratio 0.8 (1.0-1.7) Assessment/Plan Assessment/Plan 1. Atrial fibrillation with RVR on initial presentation, newly diagnosed, currently back in sinus rhythm. This is probably precipitated by the hyperadrenergic state surrounding his incarcerated ventral hernia. Check 2D echo to assess LV systolic function. We will plan for outpatient event monitor to assess arrhythmia burden. 2. Incarcerated ventral hernia s/p surgical repair with mesh. Continue postop care per GS team. 3. Acute respiratory failure, multifactorial including probable COPD exacerbation s/p intubation. Pulmonary team following. 4. Hypertension: Controlled Thanks for your consultation AAKASH GUTIERREZ MD Jan 04, 2020 13:37
[2020-01-04] MEDS: IV NORMAL SALINE 1000ML BAG 1,000 ML IV SCH (19:31)
[2020-01-04] MEDS: FAMOTIDINE 20 MG/2 ML VIAL IVP SCH (21:10)
[2020-01-05] VITALS (24 sets, daily range): BP systolic 87–128; BP diastolic 55–75
[2020-01-05] MEDS: IPRATRPIUM/ALBUTEROL 0.5/2.5MG 3 ML NEBU. NEB SCH ×6 (01:00→19:32)
[2020-01-05] MEDS: PROPOFOL 100 ML IV PRN ×6 (01:06→20:56)
[2020-01-05] MEDS: IV NORMAL SALINE 1000ML BAG 1,000 ML IV SCH (03:24)
[2020-01-05] MEDS: HEPARIN for SUB-Q USE 5,000 UNIT/ML VIAL. SQ SCH ×3 (05:21→21:57)
[2020-01-05 07:43] LABS: BASO % 0 % (0-3); EOS % 0 % (0-3); HEMATOCRIT 38.3 % (39.0-53.0); HEMOGLOBIN 12.9 g/dL (13.0-17.5); LYMPH # 1.6 x10^3/uL (1.0-4.8); LYMPH % 19 % (24-48); MEAN CORPUSCULAR HEMOGLOBIN 31 pg (25-35); MEAN CORPUSCULAR HGB CONC 34 g/dL (31-37); MEAN CORPUSCULAR VOLUME 93 fL (79-100); MONO # 0.8 x10^3/uL (0.0-1.1); MONO % 9 % (0-9); NEUT # 6.3 x10^3/uL (1.8-7.7); NEUT % 71 % (31-73); PLATELET COUNT 202 x10^3/uL (140-400); RED BLOOD COUNT 4.12 x10^6/uL (4.30-5.70); RED CELL DISTRIBUTION WIDTH 14.6 % (11.5-14.5); WHITE BLOOD COUNT 8.8 x10^3/uL (4.0-11.0)
[2020-01-05 07:50] LABS: CALCIUM 7.5 mg/dL (8.5-10.1); CREATININE 1.1 mg/dL (0.7-1.3); GFR 65.1; POTASSIUM 4.3 mmol/L (3.5-5.1)
[2020-01-05] MEDS: BUDESONIDE 0.5 MG/2 ML NEBU. NEB SCH ×2 (08:00→19:32)
--- NOTE | 2020-01-05 08:23 | RAD ---
PORTABLE CHEST 1V History: Reason: intubated / Spl. Instructions: / History: Comparison: January 03, 2020 Findings: Stable endotracheal tube and enteric tube. Low lung volumes. Increased interstitial thickening. Patchy bibasilar opacities. Increased small bilateral pleural effusions. Unchanged heart size. Impression: 1. Increased interstitial thickening and patchy bibasilar opacities. 2. Increased small bilateral pleural effusions. Electronically signed by: Miguelito Jacome DO (01/05/2020 8:19 AM) [id number]
[2020-01-05 08:24] LABS: BASE EXCESS ABG -8 mmol/L (-3-3); HCO3 ABG 18 mmol/L (21-28); PCO2 ABG 35 mmHg (35-46); PO2 ABG 73 mmHg (65-108); SAT O2 ABG 94 % (92-99)
[2020-01-05] MEDS: NYSTATIN TOPICAL POWDER 15GM BOTTLE. TP SCH ×2 (08:39→20:56)
[2020-01-05 08:48] LABS: FIO2 ABG 50
[2020-01-05] MEDS ORDERED: LISI-130 PO (08:50)
--- NOTE | 2020-01-05 10:14 | NUR ---
SS following for discharge planning. SS reviewed pt chart and discussed with pt RN. Pt is from home with spouse and is currently on the vent. Pt had ventral hernia repair. Pt has history of smoking and emphysema. Blood gasses being checked. COVID19 negative. Pt's family wanting pt to go to [facility], ; fax [phone], at discharge. PT/OT will need to be ordered when off the vent. SS will continue to follow for discharge planning.
--- NOTE | 2020-01-05 10:29 | PDOC ---
PULMONARY PROGRESS NOTES DATE: 01/05/20 TIME: 10:26 Subjective remains intubated/sedated AC mode Vitals Vital Signs Date Time Temp Pulse Resp B/P (MAP) Pulse Ox O2 Delivery O2 Flow Rate FiO2 01/05/20 10:00 96 24 101/56 (71) 95 Ventilator 01/05/20 08:00 100.0 100.0 Lungs: Other (decrease bs) Cardiovascular: S1 Abdomen: Soft, Other (obese,drain in place) Extremities: Other (1=edema) Labs Laboratory Tests Test 01/03/20 11:40 01/03/20 15:25 01/03/20 18:45 01/04/20 04:30 O2 Saturation 99 % (92-99) 97 % (92-99) Arterial Blood pH 7.17 (7.35-7.45) 7.34 (7.35-7.45) Arterial Blood pCO2 at Patient Temp 70 mmHg (35-46) 42 mmHg (35-46) Arterial Blood pO2 at Patient Temp 200 mmHg (65-108) 103 mmHg (65-108) Arterial Blood HCO3 25 mmol/L (21-28) 22 mmol/L (21-28) Arterial Blood Base Excess -5 mmol/L (-3-3) -3 mmol/L (-3-3) FiO2 100 80 Urine Collection Type Unknown Urine Color Yellow Urine Clarity Clear Urine pH 5.5 (<5.0-8.0) Urine Specific [place] 1.025 (1.000-1.030) Urine Protein Negative mg/dL (NEG-TRACE) Urine Glucose (UA) Negative mg/dL (NEG) Urine Ketones (Stick) 15 mg/dL (NEG) Urine Blood Negative (NEG) Urine Nitrite Negative (NEG) Urine Bilirubin Small (NEG) Urine Urobilinogen Dipstick 1.0 mg/dL (0.2 mg/dL) Urine Leukocyte Esterase Negative (NEG) Urine RBC Occ /HPF (0-2) Urine WBC Occ /HPF (0-4) Urine Squamous Epithelial Cells Few /LPF Urine Bacteria 0 /HPF (0-FEW) Urine Mucus Mod /LPF White Blood Count 7.9 x10^3/uL (4.0-11.0) Red Blood Count 3.87 x10^6/uL (4.30-5.70) Hemoglobin 11.9 g/dL (13.0-17.5) Hematocrit 35.5 % (39.0-53.0) Mean Corpuscular Volume 92 fL (79-100) Mean Corpuscular Hemoglobin 31 pg (25-35) Mean Corpuscular Hemoglobin Concent 34 g/dL (31-37) Red Cell Distribution Width 14.1 % (11.5-14.5) Platelet Count 200 x10^3/uL (140-400) Neutrophils (%) (Auto) 70 % (31-73) Lymphocytes (%) (Auto) 20 % (24-48) Monocytes (%) (Auto) 10 % (0-9) Eosinophils (%) (Auto) 0 % (0-3) Basophils (%) (Auto) 0 % (0-3) Neutrophils # (Auto) 5.6 x10^3/uL (1.8-7.7) Lymphocytes # (Auto) 1.5 x10^3/uL (1.0-4.8) Monocytes # (Auto) 0.8 x10^3/uL (0.0-1.1) Eosinophils # (Auto) 0.0 x10^3/uL (0.0-0.7) Basophils # (Auto) 0.0 x10^3/uL (0.0-0.2) Sodium Level 140 mmol/L (136-145) Potassium Level 4.1 mmol/L (3.5-5.1) Chloride Level 105 mmol/L (98-107) Carbon Dioxide Level 25 mmol/L (21-32) Anion Gap 10 (6-14) Blood Urea Nitrogen 33 mg/dL (8-26) Creatinine 1.2 mg/dL (0.7-1.3) Estimated GFR (Cockcroft-Gault) 58.9 BUN/Creatinine Ratio 28 (6-20) Glucose Level 85 mg/dL (70-99) Calcium Level 7.6 mg/dL (8.5-10.1) Total Bilirubin 0.4 mg/dL (0.2-1.0) Aspartate Amino Transf (AST/SGOT) 30 U/L (15-37) Alanine Aminotransferase (ALT/SGPT) 37 U/L (16-63) Alkaline Phosphatase 40 U/L (46-116) Total Protein 5.9 g/dL (6.4-8.2) Albumin 2.7 g/dL (3.4-5.0) Albumin/Globulin Ratio 0.8 (1.0-1.7) Test 01/04/20 08:40 01/05/20 04:15 01/05/20 07:50 O2 Saturation 96 % (92-99) 94 % (92-99) Arterial Blood pH 7.39 (7.35-7.45) 7.32 (7.35-7.45) Arterial Blood pCO2 at Patient Temp 38 mmHg (35-46) 35 mmHg (35-46) Arterial Blood pO2 at Patient Temp 85 mmHg (65-108) 73 mmHg (65-108) Arterial Blood HCO3 23 mmol/L (21-28) 18 mmol/L (21-28) Arterial Blood Base Excess -2 mmol/L (-3-3) -8 mmol/L (-3-3) FiO2 60 50 White Blood Count 8.8 x10^3/uL (4.0-11.0) Red Blood Count 4.12 x10^6/uL (4.30-5.70) Hemoglobin 12.9 g/dL (13.0-17.5) Hematocrit 38.3 % (39.0-53.0) Mean Corpuscular Volume 93 fL (79-100) Mean Corpuscular Hemoglobin 31 pg (25-35) Mean Corpuscular Hemoglobin Concent 34 g/dL (31-37) Red Cell Distribution Width 14.6 % (11.5-14.5) Platelet Count 202 x10^3/uL (140-400) Neutrophils (%) (Auto) 71 % (31-73) Lymphocytes (%) (Auto) 19 % (24-48) Monocytes (%) (Auto) 9 % (0-9) Eosinophils (%) (Auto) 0 % (0-3) Basophils (%) (Auto) 0 % (0-3) Neutrophils # (Auto) 6.3 x10^3/uL (1.8-7.7) Lymphocytes # (Auto) 1.6 x10^3/uL (1.0-4.8) Monocytes # (Auto) 0.8 x10^3/uL (0.0-1.1) Eosinophils # (Auto) 0.0 x10^3/uL (0.0-0.7) Basophils # (Auto) 0.0 x10^3/uL (0.0-0.2) Sodium Level 139 mmol/L (136-145) Potassium Level 4.3 mmol/L (3.5-5.1) Chloride Level 104 mmol/L (98-107) Carbon Dioxide Level 26 mmol/L (21-32) Anion Gap 9 (6-14) Blood Urea Nitrogen 31 mg/dL (8-26) Creatinine 1.1 mg/dL (0.7-1.3) Estimated GFR (Cockcroft-Gault) 65.1 Glucose Level 71 mg/dL (70-99) Calcium Level 7.5 mg/dL (8.5-10.1) Magnesium Level 2.2 mg/dL (1.8-2.4) Laboratory Tests Test 01/05/20 04:15 01/05/20 07:50 White Blood Count 8.8 x10^3/uL (4.0-11.0) Red Blood Count 4.12 x10^6/uL (4.30-5.70) Hemoglobin 12.9 g/dL (13.0-17.5) Hematocrit 38.3 % (39.0-53.0) Mean Corpuscular Volume 93 fL (79-100) Mean Corpuscular Hemoglobin 31 pg (25-35) Mean Corpuscular Hemoglobin Concent 34 g/dL (31-37) Red Cell Distribution Width 14.6 % (11.5-14.5) Platelet Count 202 x10^3/uL (140-400) Neutrophils (%) (Auto) 71 % (31-73) Lymphocytes (%) (Auto) 19 % (24-48) Monocytes (%) (Auto) 9 % (0-9) Eosinophils (%) (Auto) 0 % (0-3) Basophils (%) (Auto) 0 % (0-3) Neutrophils # (Auto) 6.3 x10^3/uL (1.8-7.7) Lymphocytes # (Auto) 1.6 x10^3/uL (1.0-4.8) Monocytes # (Auto) 0.8 x10^3/uL (0.0-1.1) Eosinophils # (Auto) 0.0 x10^3/uL (0.0-0.7) Basophils # (Auto) 0.0 x10^3/uL (0.0-0.2) Sodium Level 139 mmol/L (136-145) Potassium Level 4.3 mmol/L (3.5-5.1) Chloride Level 104 mmol/L (98-107) Carbon Dioxide Level 26 mmol/L (21-32) Anion Gap 9 (6-14) Blood Urea Nitrogen 31 mg/dL (8-26) Creatinine 1.1 mg/dL (0.7-1.3) Estimated GFR (Cockcroft-Gault) 65.1 Glucose Level 71 mg/dL (70-99) Calcium Level 7.5 mg/dL (8.5-10.1) Magnesium Level 2.2 mg/dL (1.8-2.4) O2 Saturation 94 % (92-99) Arterial Blood pH 7.32 (7.35-7.45) Arterial Blood pCO2 at Patient Temp 35 mmHg (35-46) Arterial Blood pO2 at Patient Temp 73 mmHg (65-108) Arterial Blood HCO3 18 mmol/L (21-28) Arterial Blood Base Excess -8 mmol/L (-3-3) FiO2 50 Medications Active Scripts Medications Dose Route/Sig Max Daily Dose Days Date Category Lisinopril 40 Mg Tablet 1 Tab PO DAILY 01/05/20 Reported Comments CXR 01/04 CHF Impression . 1. Acute hypoxemic hypercarbic respiratory failure, expected multifactorial in etiology. 2. Abnormal chest x-ray.C/W CHF 3. Chronic obstructive pulmonary disease.could be severe 4. Obesity, probably obstructive sleep apnea-hypopnea syndrome. 5. Incarcerated ventral hernia, status post repair of incarcerated ventral hernia with mesh, postop day 1. 6. Hypertension. 7. Brief episode of atrial fibrillation with rapid ventricular response., V-tac Plan . PLAN AND RECOMMENDATIONS: 1. Titrate FiO2 to keep O2 saturation 94%.AC mode 2. titrate down FiO2 to keep saturation more than 92%.IV lasix today 3. Continue bronchodilator 4. Inhaled corticosteroid. 5. Cardiology is consulted. 6. Elevate head of bed. 7. Heparin for DVT prophylaxis. 8. Pepcid for stress ulcer prophylaxis. 9. He will need sleep study as an outpatient. 10. He will need to quit smoking forever. 11. The findings and recommendations were discussed with RN 12 IV bicarb today This is critical care time 30 minutes without overlap. JOSH ESPINAL MD Jan 05, 2020 10:29
[2020-01-05] MEDS ORDERED: CITA40TA5 PO (10:30)
[2020-01-05] MEDS ORDERED: FUROSEMIDE 40 MG/4 ML VIAL. IVP ONE (10:30)
[2020-01-05] MEDS ORDERED: ASPI81TA59 PO (10:30)
[2020-01-05] MEDS ORDERED: SODIUM BICARB ADULT 8.4% 50 MEQ/50 ML DISP.SYRIN. IV ONE (10:45)
[2020-01-05] MEDS: AMINO AC 3%/ELECTROLYTE/GLYCER 1,000 ML IV SCH (12:07)
--- NOTE | 2020-01-05 12:15 | PDOC ---
[employer] PROGRESS NOTE Date of Service DOS: DATE: 01/05/20 TIME: 12:09 Chief Complaint Chief Complaint A/P: Incarcerated ventral hernia - NPO, Pulled NGT multiple times. To OR ?Atrial fibrillation with RVR - no EKG available. Off cardizem. NSR on EKG here. Will consult cardiology for this. Cont telemetry SHAQ - likely vasomotor nephropathy. No known renal history. Will hydrate as well. Thrombocytosis - likely from TARIQ undiagnosed, likely cause of inability to extubate COPD - pulm consulted post-op for failure to extubate. Duonebs q4hrs and pulmicort Obesity - counseled on weight loss, likely has TARIQ or OHS Smoker - counseled on cessation Hypercapnic respiratory failure - likely 2/2 undiagnosed TARIQ/OHS and underlying COPD. Pulm consulted. Vent wean daily FEN - NPO PPX - heparin FULL CODE Dispo - ICU for post op monitoring CC time 47 minutes History of Present Illness History of Present Illness 01/05/20 Patient seen and examined in ICU Discussed with RN Discussed with , she requested a nicotine patch for patient Maddox to bedside AC 24/VT 550/ O2 45 Mr Ortega is a 74 year old male w/ PMHx OA, COPD, smoker who presented via private vehicle to [facility] with abdominal pain with vomiting. CT abdomen pelvis was ordered and did show an incarcerated hernia with obstruction. Upon NGT placement on telemetry was noted with atrial fibrillation with RVR. He was started on diltiazem and [facility] Initially seen on cardiovascular floor. Labs significant for WBC 9.6, Hb 17, platelets 324, NA 136, K3.9, BUN 383, CR 2.1, glucose 121, lactate 2.3, troponin negative. INR 1.2 EKG performed here is normal sinus rhythm with no ST segment changes. To the OR for hernia reduction, actually was reducible in the OR physically, mesh placed on 01/03/20 Postoperatively unable to extubate due to significant hypercapnia found with ABG is 7.17, 69.5, 199.7. Seen in ICU on ventilator. When sedation was weaned he was very panicked. CXR with bibasilar atelectasis. On AC mode rate of 16, TV 550, FiO2 60%, PEEP 7 ABG 7.34/42/103 on this. Cr down to 1.2 Plan: Cont vent in ICU Vitals/I&O Vitals/I&O: Vital Signs Date Time Temp Pulse Resp B/P (MAP) Pulse Ox O2 Delivery O2 Flow Rate FiO2 01/05/20 10:00 96 24 101/56 (71) 95 Ventilator 01/05/20 08:00 2.0 01/05/20 08:00 100.0 100.0 I & O 01/04/20 01/04/20 01/05/20 15:00 23:00 07:00 Intake Total 272 ml 1806 ml Output Total 130 ml 320 ml 520 ml Balance -130 ml -48 ml 1286 ml Physical Exam General: No acute distress, Other (Intubated and sedated) Heart: Regular rate, No murmurs Lungs: Other (decrease bs) Abdomen: Other (Bandaged surgical wound, no bowel sounds) Extremities: No edema Skin: No rashes, No breakdown, No significant lesion Labs Labs: Laboratory Tests Test 01/05/20 04:15 01/05/20 07:50 White Blood Count 8.8 x10^3/uL (4.0-11.0) Red Blood Count 4.12 x10^6/uL (4.30-5.70) Hemoglobin 12.9 g/dL (13.0-17.5) Hematocrit 38.3 % (39.0-53.0) Mean Corpuscular Volume 93 fL (79-100) Mean Corpuscular Hemoglobin 31 pg (25-35) Mean Corpuscular Hemoglobin Concent 34 g/dL (31-37) Red Cell Distribution Width 14.6 % (11.5-14.5) Platelet Count 202 x10^3/uL (140-400) Neutrophils (%) (Auto) 71 % (31-73) Lymphocytes (%) (Auto) 19 % (24-48) Monocytes (%) (Auto) 9 % (0-9) Eosinophils (%) (Auto) 0 % (0-3) Basophils (%) (Auto) 0 % (0-3) Neutrophils # (Auto) 6.3 x10^3/uL (1.8-7.7) Lymphocytes # (Auto) 1.6 x10^3/uL (1.0-4.8) Monocytes # (Auto) 0.8 x10^3/uL (0.0-1.1) Eosinophils # (Auto) 0.0 x10^3/uL (0.0-0.7) Basophils # (Auto) 0.0 x10^3/uL (0.0-0.2) Sodium Level 139 mmol/L (136-145) Potassium Level 4.3 mmol/L (3.5-5.1) Chloride Level 104 mmol/L (98-107) Carbon Dioxide Level 26 mmol/L (21-32) Anion Gap 9 (6-14) Blood Urea Nitrogen 31 mg/dL (8-26) Creatinine 1.1 mg/dL (0.7-1.3) Estimated GFR (Cockcroft-Gault) 65.1 Glucose Level 71 mg/dL (70-99) Calcium Level 7.5 mg/dL (8.5-10.1) Magnesium Level 2.2 mg/dL (1.8-2.4) O2 Saturation 94 % (92-99) Arterial Blood pH 7.32 (7.35-7.45) Arterial Blood pCO2 at Patient Temp 35 mmHg (35-46) Arterial Blood pO2 at Patient Temp 73 mmHg (65-108) Arterial Blood HCO3 18 mmol/L (21-28) Arterial Blood Base Excess -8 mmol/L (-3-3) FiO2 50 Assessment and Plan Assessmemt and Plan Assessment: A/P: Incarcerated ventral hernia - NPO, Pulled NGT multiple times. To OR ?Atrial fibrillation with RVR - no EKG available. Off cardizem. NSR on EKG here. Will consult cardiology for this. Cont telemetry SHAQ - likely vasomotor nephropathy. No known renal history. Will hydrate as well. Thrombocytosis - likely from TARIQ undiagnosed, likely cause of inability to ext ubate COPD - pulm consulted post-op for failure to extubate. Duonebs q4hrs and pulmicort Obesity - counseled on weight loss, likely has TARIQ or OHS Smoker - counseled on cessation Hypercapnic respiratory failure - likely 2/2 undiagnosed TARIQ/OHS and underlying COPD. Pulm consulted. Vent wean daily Plan: ICU monitoring Vent weening Wound care SCDs for DVT prophylaxis Propofol for sedation PPN Nicoderm (21 mg) Full code Appreciate subspecialist input Discussed with his He is critically ill Total time 31-minute Comment Review of Relevant I have reviewed the following items quyen (where applicable) has been applied. Medications: Current Medications Medications (Trade) Dose Ordered Sig/Timur Route PRN Reason Start Time Stop Time Status Last Admin Dose Admin Famotidine (Pepcid Vial) 20 mg QHS IVP 01/04/20 21:00 01/04/20 21:10 Sodium Chloride 1,000 ml @ 125 mls/hr Q8H IV 01/04/20 19:00 01/05/20 11:41 DC 01/05/20 03:24 Furosemide (Lasix) 40 mg 1X ONCE IVP 01/05/20 10:30 01/05/20 10:31 DC 01/05/20 10:46 Sodium Bicarbonate (Sodium Bicarb Adult 8.4% Syr) 50 meq 1X ONCE IV 01/05/20 10:45 01/05/20 10:46 DC 01/05/20 10:46 Justicifation of Admission Dx: Justifications for Admission: Justification of Admission Dx: Yes LISE SCHROEDER III DO Jan 05, 2020 12:15
--- NOTE | 2020-01-05 12:32 | PDOC ---
[facility] [employer] 01/05/20 1232: SURGICAL PROGRESS NOTE DATE: 01/05/20 TIME: 12:31 Subjective vent support Vital Signs Vital Signs Date Time Temp Pulse Resp B/P (MAP) Pulse Ox O2 Delivery O2 Flow Rate FiO2 01/05/20 12:21 92 Ventilator 01/05/20 12:11 24 01/05/20 10:00 96 101/56 (71) 01/05/20 08:00 2.0 01/05/20 08:00 100.0 100.0 I&O l Intake and Output 01/05/20 07:00 Intake Total 2078 ml Output Total 970 ml Balance 1108 ml IV Total 2078 ml Output Urine Total 680 ml Gastric Drainage Total 200 ml Drainage Total 90 ml PATIENT HAS A LANCASTER: Yes General: Other (sedated ) Abdomen: Soft, Other (incision intact, drain serosang) Labs Laboratory Tests Test 01/03/20 15:25 01/03/20 18:45 01/04/20 04:30 01/04/20 08:40 O2 Saturation 97 % (92-99) 96 % (92-99) Arterial Blood pH 7.34 (7.35-7.45) 7.39 (7.35-7.45) Arterial Blood pCO2 at Patient Temp 42 mmHg (35-46) 38 mmHg (35-46) Arterial Blood pO2 at Patient Temp 103 mmHg (65-108) 85 mmHg (65-108) Arterial Blood HCO3 22 mmol/L (21-28) 23 mmol/L (21-28) Arterial Blood Base Excess -3 mmol/L (-3-3) -2 mmol/L (-3-3) FiO2 80 60 Urine Collection Type Unknown Urine Color Yellow Urine Clarity Clear Urine pH 5.5 (<5.0-8.0) Urine Specific [place] 1.025 (1.000-1.030) Urine Protein Negative mg/dL (NEG-TRACE) Urine Glucose (UA) Negative mg/dL (NEG) Urine Ketones (Stick) 15 mg/dL (NEG) Urine Blood Negative (NEG) Urine Nitrite Negative (NEG) Urine Bilirubin Small (NEG) Urine Urobilinogen Dipstick 1.0 mg/dL (0.2 mg/dL) Urine Leukocyte Esterase Negative (NEG) Urine RBC Occ /HPF (0-2) Urine WBC Occ /HPF (0-4) Urine Squamous Epithelial Cells Few /LPF Urine Bacteria 0 /HPF (0-FEW) Urine Mucus Mod /LPF White Blood Count 7.9 x10^3/uL (4.0-11.0) Red Blood Count 3.87 x10^6/uL (4.30-5.70) Hemoglobin 11.9 g/dL (13.0-17.5) Hematocrit 35.5 % (39.0-53.0) Mean Corpuscular Volume 92 fL (79-100) Mean Corpuscular Hemoglobin 31 pg (25-35) Mean Corpuscular Hemoglobin Concent 34 g/dL (31-37) Red Cell Distribution Width 14.1 % (11.5-14.5) Platelet Count 200 x10^3/uL (140-400) Neutrophils (%) (Auto) 70 % (31-73) Lymphocytes (%) (Auto) 20 % (24-48) Monocytes (%) (Auto) 10 % (0-9) Eosinophils (%) (Auto) 0 % (0-3) Basophils (%) (Auto) 0 % (0-3) Neutrophils # (Auto) 5.6 x10^3/uL (1.8-7.7) Lymphocytes # (Auto) 1.5 x10^3/uL (1.0-4.8) Monocytes # (Auto) 0.8 x10^3/uL (0.0-1.1) Eosinophils # (Auto) 0.0 x10^3/uL (0.0-0.7) Basophils # (Auto) 0.0 x10^3/uL (0.0-0.2) Sodium Level 140 mmol/L (136-145) Potassium Level 4.1 mmol/L (3.5-5.1) Chloride Level 105 mmol/L (98-107) Carbon Dioxide Level 25 mmol/L (21-32) Anion Gap 10 (6-14) Blood Urea Nitrogen 33 mg/dL (8-26) Creatinine 1.2 mg/dL (0.7-1.3) Estimated GFR (Cockcroft-Gault) 58.9 BUN/Creatinine Ratio 28 (6-20) Glucose Level 85 mg/dL (70-99) Calcium Level 7.6 mg/dL (8.5-10.1) Total Bilirubin 0.4 mg/dL (0.2-1.0) Aspartate Amino Transf (AST/SGOT) 30 U/L (15-37) Alanine Aminotransferase (ALT/SGPT) 37 U/L (16-63) Alkaline Phosphatase 40 U/L (46-116) Total Protein 5.9 g/dL (6.4-8.2) Albumin 2.7 g/dL (3.4-5.0) Albumin/Globulin Ratio 0.8 (1.0-1.7) Test 01/05/20 04:15 01/05/20 07:50 White Blood Count 8.8 x10^3/uL (4.0-11.0) Red Blood Count 4.12 x10^6/uL (4.30-5.70) Hemoglobin 12.9 g/dL (13.0-17.5) Hematocrit 38.3 % (39.0-53.0) Mean Corpuscular Volume 93 fL (79-100) Mean Corpuscular Hemoglobin 31 pg (25-35) Mean Corpuscular Hemoglobin Concent 34 g/dL (31-37) Red Cell Distribution Width 14.6 % (11.5-14.5) Platelet Count 202 x10^3/uL (140-400) Neutrophils (%) (Auto) 71 % (31-73) Lymphocytes (%) (Auto) 19 % (24-48) Monocytes (%) (Auto) 9 % (0-9) Eosinophils (%) (Auto) 0 % (0-3) Basophils (%) (Auto) 0 % (0-3) Neutrophils # (Auto) 6.3 x10^3/uL (1.8-7.7) Lymphocytes # (Auto) 1.6 x10^3/uL (1.0-4.8) Monocytes # (Auto) 0.8 x10^3/uL (0.0-1.1) Eosinophils # (Auto) 0.0 x10^3/uL (0.0-0.7) Basophils # (Auto) 0.0 x10^3/uL (0.0-0.2) Sodium Level 139 mmol/L (136-145) Potassium Level 4.3 mmol/L (3.5-5.1) Chloride Level 104 mmol/L (98-107) Carbon Dioxide Level 26 mmol/L (21-32) Anion Gap 9 (6-14) Blood Urea Nitrogen 31 mg/dL (8-26) Creatinine 1.1 mg/dL (0.7-1.3) Estimated GFR (Cockcroft-Gault) 65.1 Glucose Level 71 mg/dL (70-99) Calcium Level 7.5 mg/dL (8.5-10.1) Magnesium Level 2.2 mg/dL (1.8-2.4) O2 Saturation 94 % (92-99) Arterial Blood pH 7.32 (7.35-7.45) Arterial Blood pCO2 at Patient Temp 35 mmHg (35-46) Arterial Blood pO2 at Patient Temp 73 mmHg (65-108) Arterial Blood HCO3 18 mmol/L (21-28) Arterial Blood Base Excess -8 mmol/L (-3-3) FiO2 50 Laboratory Tests Test 01/05/20 04:15 01/05/20 07:50 White Blood Count 8.8 x10^3/uL (4.0-11.0) Red Blood Count 4.12 x10^6/uL (4.30-5.70) Hemoglobin 12.9 g/dL (13.0-17.5) Hematocrit 38.3 % (39.0-53.0) Mean Corpuscular Volume 93 fL (79-100) Mean Corpuscular Hemoglobin 31 pg (25-35) Mean Corpuscular Hemoglobin Concent 34 g/dL (31-37) Red Cell Distribution Width 14.6 % (11.5-14.5) Platelet Count 202 x10^3/uL (140-400) Neutrophils (%) (Auto) 71 % (31-73) Lymphocytes (%) (Auto) 19 % (24-48) Monocytes (%) (Auto) 9 % (0-9) Eosinophils (%) (Auto) 0 % (0-3) Basophils (%) (Auto) 0 % (0-3) Neutrophils # (Auto) 6.3 x10^3/uL (1.8-7.7) Lymphocytes # (Auto) 1.6 x10^3/uL (1.0-4.8) Monocytes # (Auto) 0.8 x10^3/uL (0.0-1.1) Eosinophils # (Auto) 0.0 x10^3/uL (0.0-0.7) Basophils # (Auto) 0.0 x10^3/uL (0.0-0.2) Sodium Level 139 mmol/L (136-145) Potassium Level 4.3 mmol/L (3.5-5.1) Chloride Level 104 mmol/L (98-107) Carbon Dioxide Level 26 mmol/L (21-32) Anion Gap 9 (6-14) Blood Urea Nitrogen 31 mg/dL (8-26) Creatinine 1.1 mg/dL (0.7-1.3) Estimated GFR (Cockcroft-Gault) 65.1 Glucose Level 71 mg/dL (70-99) Calcium Level 7.5 mg/dL (8.5-10.1) Magnesium Level 2.2 mg/dL (1.8-2.4) O2 Saturation 94 % (92-99) Arterial Blood pH 7.32 (7.35-7.45) Arterial Blood pCO2 at Patient Temp 35 mmHg (35-46) Arterial Blood pO2 at Patient Temp 73 mmHg (65-108) Arterial Blood HCO3 18 mmol/L (21-28) Arterial Blood Base Excess -8 mmol/L (-3-3) FiO2 50 Assessment/Plan supportive care Justicifation of Admission Dx: Justifications for Admission: Justification of Admission Dx: Yes LESTER PITT MD 01/05/20 1320: SURGICAL PROGRESS NOTE Assessment/Plan Agree with above [facility] [employer] Jan 05, 2020 12:32 LESTER PITT MD Jan 05, 2020 13:20
[2020-01-05] MEDS: NICOTINE 21MG PATCH. TD SCH (14:26)
--- NOTE | 2020-01-05 15:29 | CARD ---
MR#: [id number] Date of Study: 01/05/2020 Ordering Physician: AAKASH GUTIERREZ, Referring Physician: AAKASH GUTIERREZ, Tech: Kelly Trimble APPROVED REPORT EXAM: Two-dimensional and M-mode echocardiogram with Doppler and color Doppler. Other Information Quality : FairHR: [id number] Technically limited study due to body habitus. INDICATION COPD Atrial Fibrillation RISK FACTORS Smoking 2D DIMENSIONS RVDd4.5 (2.9-3.5cm)Left Atrium(2D)4.5 (1.6-4.0cm) IVSd1.1 (0.7-1.1cm)Aortic Root(2D)3.7 (2.0-3.7cm) LVDd5.5 (3.9-5.9cm)LVOT Diameter2.3 (1.8-2.4cm) PWd1.2 (0.7-1.1cm)LVDs3.6 (2.5-4.0cm) FS (%) 34.6 %SV91.3 ml LVEF(%)63.2 (>50%) Aortic Valve AoV Peak Cornell.128.7cm/sAoV VTI22.1cm AO Peak GR.6.6mmHgLVOT VTI 13.90cm AO Mean GR.5mmHg Mitral Valve MV E Spqewdce90.9cm/sMV E Peak Gr.2mmHg MV DECEL [id number] A Rwchcuqh41.7cm/s MV E Mean Gr.1mmHgE/A Ratio0.8 Tricuspid Valve TR P. Kazlitzd408zr/sRAP JJEFMKPL6otCv TR Peak Gr.[id number] Pulmonary Vein S1 Sdlftdlo07.3cm/sS2 Tonytska59.78cm/s D2 Lyjqwnvu04.8cm/sPVa [id number] LEFT VENTRICLE The left ventricle is normal size. There is mild concentric left ventricular hypertrophy. The left ve ntricular systolic function is normal and the ejection fraction is within normal range. The Ejection Fraction is 55-60%. There is normal LV segmental wall motion. Transmitral Doppler flow pattern is Gra de I-abnormal relaxation pattern. RIGHT VENTRICLE The right ventricle is moderately dilated. There is normal right ventricular wall thickness. The righ t ventricular systolic function is normal. ATRIA The left atrium size is normal. The right atrium is borderline dilated. The interatrial septum is int act with no evidence for an atrial septal defect or patent foramen ovale as noted on 2-D or Doppler i maging. AORTIC VALVE The aortic valve is normal in structure and function. Doppler and Color Flow revealed no significant aortic regurgitation. There is no significant aortic valvular stenosis. Calculated aortic valve area is 2.65 cm2 with maximum pressure gradient of 8 mmHg and mean pressure gradient of 4 mmHg. MITRAL VALVE The mitral valve is normal in structure and function. There is no evidence of mitral valve prolapse. There is no mitral valve stenosis. Doppler and Color Flow revealed no mitral valve regurgitation note d. TRICUSPID VALVE The tricuspid valve is normal in structure and function. Doppler and Color Flow revealed trace tricus pid regurgitation with an estimated PAP of 25 mmHg. There is no tricuspid valve stenosis. PULMONIC VALVE The pulmonic valve is not well visualized. Doppler and Color Flow revealed no pulmonic valvular regur gitation. There is no pulmonic valvular stenosis. GREAT VESSELS The aortic root is normal in size. The ascending aorta is normal in size. The IVC is normal in size a nd collapses >50% with inspiration. PERICARDIAL EFFUSION There is no evidence of significant pericardial effusion. Critical Notification Critical Value: No <Conclusion> The left ventricular systolic function is normal and the ejection fraction is within normal range. Th e Ejection Fraction is 55-60%. There is normal LV segmental wall motion. The right ventricle is moderately dilated. Signed by : Luigi Hare, Electronically Approved : 01/05/2020 15:29:22
--- NOTE | 2020-01-05 17:24 | PDOC ---
PROGRESS NOTES Date of Service: DATE: 01/05/20 TIME: 17:23 Subjective Subjective Remains intubated. Objective Objective Vital Signs Date Time Temp Pulse Resp B/P (MAP) Pulse Ox O2 Delivery O2 Flow Rate FiO2 01/05/20 17:02 92 Ventilator 01/05/20 16:00 92 24 123/69 (87) 01/05/20 16:00 2.0 01/05/20 12:00 98.6 98.6 Intake and Output 01/05/20 07:00 Intake Total 2078 ml Output Total 970 ml Balance 1108 ml IV Total 2078 ml Output Urine Total 680 ml Gastric Drainage Total 200 ml Drainage Total 90 ml Physical Exam Abdomen: Soft, Other (incision intact, drain serosang) Heart: Regular rate, No murmurs Extremities: No edema General: Other (sedated ) HEENT: Atraumatic Lungs: Other (Decreased air entry bases) Neuro: Normal speech, Strength at 5/5 X4 ext, Normal tone, Sensation intact, Cranial nerves 3-12 NL, Reflexes 2+ Psych/Mental Status: Mental status NL, Mood NL Skin: No rashes, No breakdown, No significant lesion Assessment Assessment 1. Atrial fibrillation with RVR on initial presentation, newly diagnosed, currently back in sinus rhythm. This is probably precipitated by the hyperadrenergic state surrounding his incarcerated ventral hernia. 2D echo showed normal LV systolic function. We will plan for outpatient event monitor to assess arrhythmia burden. 2. Incarcerated ventral hernia s/p surgical repair with mesh. Continue postop care per [facility] team. 3. Acute respiratory failure, multifactorial including probable COPD exacerbation s/p intubation. Pulmonary team following. 4. Hypertension: Controlled Comment Review of Relevant I have reviewed the following items quyen (where applicable) has been applied. Labs Laboratory Tests Test 01/05/20 04:15 01/05/20 07:50 White Blood Count 8.8 x10^3/uL (4.0-11.0) Red Blood Count 4.12 x10^6/uL (4.30-5.70) Hemoglobin 12.9 g/dL (13.0-17.5) Hematocrit 38.3 % (39.0-53.0) Mean Corpuscular Volume 93 fL (79-100) Mean Corpuscular Hemoglobin 31 pg (25-35) Mean Corpuscular Hemoglobin Concent 34 g/dL (31-37) Red Cell Distribution Width 14.6 % (11.5-14.5) Platelet Count 202 x10^3/uL (140-400) Neutrophils (%) (Auto) 71 % (31-73) Lymphocytes (%) (Auto) 19 % (24-48) Monocytes (%) (Auto) 9 % (0-9) Eosinophils (%) (Auto) 0 % (0-3) Basophils (%) (Auto) 0 % (0-3) Neutrophils # (Auto) 6.3 x10^3/uL (1.8-7.7) Lymphocytes # (Auto) 1.6 x10^3/uL (1.0-4.8) Monocytes # (Auto) 0.8 x10^3/uL (0.0-1.1) Eosinophils # (Auto) 0.0 x10^3/uL (0.0-0.7) Basophils # (Auto) 0.0 x10^3/uL (0.0-0.2) Sodium Level 139 mmol/L (136-145) Potassium Level 4.3 mmol/L (3.5-5.1) Chloride Level 104 mmol/L (98-107) Carbon Dioxide Level 26 mmol/L (21-32) Anion Gap 9 (6-14) Blood Urea Nitrogen 31 mg/dL (8-26) Creatinine 1.1 mg/dL (0.7-1.3) Estimated GFR (Cockcroft-Gault) 65.1 Glucose Level 71 mg/dL (70-99) Calcium Level 7.5 mg/dL (8.5-10.1) Magnesium Level 2.2 mg/dL (1.8-2.4) O2 Saturation 94 % (92-99) Arterial Blood pH 7.32 (7.35-7.45) Arterial Blood pCO2 at Patient Temp 35 mmHg (35-46) Arterial Blood pO2 at Patient Temp 73 mmHg (65-108) Arterial Blood HCO3 18 mmol/L (21-28) Arterial Blood Base Excess -8 mmol/L (-3-3) FiO2 50 Medications Current Medications Amino Acids/ Glycerin/ Electrolytes 1,000 ml @ 80 mls/hr [id number] IV Last administered on 01/05/20at 12:07; Start 01/05/20 at 11:45 Famotidine (Pepcid Vial) 20 mg QHS IVP Last administered on 01/04/20at 21:10; Start 01/04/20 at 21:00 Furosemide (Lasix) 40 mg 1X ONCE IVP Last administered on 01/05/20at 10:46; Start 01/05/20 at 10:30; Stop 01/05/20 at 10:31; Status DC Nicotine (Nicoderm Cq 21mg) 1 patch DAILY TD Last administered on 01/05/20at 14:26; Start 01/05/20 at 13:00 Sodium Bicarbonate (Sodium Bicarb Adult 8.4% Syr) 50 meq 1X ONCE IV Last administered on 01/05/20at 10:46; Start 01/05/20 at 10:45; Stop 01/05/20 at 10:46; Status DC Sodium Chloride 1,000 ml @ 125 mls/hr Q8H IV Last administered on 01/05/20at 03:24; Start 01/04/20 at 19:00; Stop 01/05/20 at 11:41; Status DC Vitals/I & O Vital Sign - Last 24 Hours 01/04/20 01/04/20 01/04/20 01/04/20 18:00 18:05 19:00 19:51 Pulse 96 96 Resp 24 24 B/P (MAP) 104/61 (75) 130/61 (84) Pulse Ox 92 94 93 O2 Delivery Ventilator Ventilator Ventilator Ventilator 01/04/20 01/04/20 01/04/20 01/04/20 20:00 20:09 21:00 22:00 Temp 100.9 100.9 Pulse 97 96 Resp 24 24 B/P (MAP) 126/68 (87) 114/68 (83) Pulse Ox 93 91 93 O2 Delivery Ventilator Mechanical Ventilator Ventilator Ventilator 01/04/20 01/04/20 01/04/20 01/04/20 22:00 23:00 23:25 23:55 Temp 99.2 99.2 Pulse 95 87 Resp 24 24 24 24 B/P (MAP) 98/58 (71) 103/67 (79) Pulse Ox 92 94 94 95 O2 Delivery Ventilator Ventilator Ventilator 01/04/20 01/04/20 01/05/20 01/05/20 23:59 23:59 00:11 01:00 Temp 99.5 99.5 Pulse 88 86 Resp 24 24 B/P (MAP) 115/64 (81) 87/63 (71) Pulse Ox 94 95 95 O2 Delivery Mechanical Ventilator Ventilator Ventilator Ventilator 01/05/20 01/05/20 01/05/20 01/05/20 01:17 02:00 03:00 03:30 Pulse 82 83 Resp 24 24 B/P (MAP) 104/66 (79) 116/69 (85) Pulse Ox 95 96 96 95 O2 Delivery Ventilator Ventilator Ventilator Ventilator 01/05/20 01/05/20 01/05/20 01/05/20 04:00 04:00 05:00 05:35 Temp 99.5 99.5 Pulse 89 89 Resp 24 24 B/P (MAP) 122/75 (91) 123/71 (88) Pulse Ox 96 93 96 O2 Delivery Ventilator Mechanical Ventilator Ventilator Ventilator 01/05/20 01/05/20 01/05/20 01/05/20 06:00 06:30 07:00 07:00 Pulse 90 90 Resp 24 24 24 24 B/P (MAP) 109/68 (82) 115/70 (85) Pulse Ox 96 96 95 95 O2 Delivery Ventilator Ventilator Ventilator 01/05/20 01/05/20 01/05/20 01/05/20 07:50 08:00 08:00 09:00 Temp 100.0 100.0 Pulse 90 86 Resp 24 24 B/P (MAP) 105/64 (78) 87/55 (66) Pulse Ox 91 95 95 O2 Delivery Ventilator Ventilator Mechanical Ventilator Ventilator O2 Flow Rate 2.0 01/05/20 01/05/20 01/05/20 01/05/20 10:00 11:00 12:00 12:00 Temp 98.6 98.6 Pulse 96 96 94 Resp 24 24 24 B/P (MAP) 101/56 (71) 108/61 (77) 110/69 (83) Pulse Ox 95 95 92 O2 Delivery Ventilator Ventilator Ventilator Mechanical Ventilator O2 Flow Rate 2.0 01/05/20 01/05/20 01/05/20 01/05/20 12:11 12:21 12:41 13:00 Pulse 90 Resp 24 24 24 B/P (MAP) 104/63 (77) Pulse Ox 92 94 O2 Delivery Ventilator Ventilator Ventilator Ventilator 01/05/20 01/05/20 01/05/20 01/05/20 14:00 15:00 16:00 16:00 Pulse 88 94 92 Resp 24 24 24 B/P (MAP) 119/70 (86) 118/69 (85) 123/69 (87) Pulse Ox 92 91 92 O2 Delivery Ventilator Ventilator Mechanical Ventilator Ventilator O2 Flow Rate 2.0 01/05/20 17:02 Pulse Ox 92 O2 Delivery Ventilator Intake and Output 01/04/20 01/04/20 01/05/20 15:00 23:00 07:00 Intake Total 272 ml 1806 ml Output Total 130 ml 320 ml 520 ml Balance -130 ml -48 ml 1286 ml AAKASH GUTIERREZ MD Jan 05, 2020 17:24
[2020-01-05] MEDS: FAMOTIDINE 20 MG/2 ML VIAL IVP SCH (20:56)
[2020-01-06] VITALS (22 sets, daily range): BP systolic 83–158; BP diastolic 55–86
[2020-01-06] MEDS: PROPOFOL 100 ML IV PRN ×2 (00:05→03:34)
[2020-01-06] MEDS: IPRATRPIUM/ALBUTEROL 0.5/2.5MG 3 ML NEBU. NEB SCH ×7 (00:40→23:39)
[2020-01-06] MEDS: AMINO AC 3%/ELECTROLYTE/GLYCER 1,000 ML IV SCH ×2 (00:50→12:45)
[2020-01-06 05:23] LABS: HEMATOCRIT 36.2 % (39.0-53.0); HEMOGLOBIN 12.1 g/dL (13.0-17.5); RED BLOOD COUNT 3.91 x10^6/uL (4.30-5.70); RED CELL DISTRIBUTION WIDTH 14.3 % (11.5-14.5)
[2020-01-06 05:37] LABS: CALCIUM 7.6 mg/dL (8.5-10.1); CREATININE 1.3 mg/dL (0.7-1.3); GFR 53.7
[2020-01-06] MEDS: HEPARIN for SUB-Q USE 5,000 UNIT/ML VIAL. SQ SCH ×3 (06:08→21:32)
[2020-01-06] MEDS: BUDESONIDE 0.5 MG/2 ML NEBU. NEB SCH ×2 (07:50→20:26)
[2020-01-06 08:32] LABS: BASE EXCESS ABG -2 mmol/L (-3-3); HCO3 ABG 23 mmol/L (21-28); PCO2 ABG 41 mmHg (35-46); PO2 ABG 69 mmHg (65-108); SAT O2 ABG 93 % (92-99)
[2020-01-06] MEDS: NYSTATIN TOPICAL POWDER 15GM BOTTLE. TP SCH ×2 (09:00→21:26)
[2020-01-06] MEDS: NICOTINE 21MG PATCH. TD SCH (09:00)
--- NOTE | 2020-01-06 10:20 | PDOC ---
SURGICAL PROGRESS NOTE DATE: 01/06/20 TIME: 10:18 Subjective vent, sedated Vital Signs Vital Signs Date Time Temp Pulse Resp B/P (MAP) Pulse Ox O2 Delivery O2 Flow Rate FiO2 01/06/20 09:22 92 Ventilator 01/06/20 08:00 99.0 83 98/64 (75) 99.0 01/06/20 07:00 24 01/05/20 16:00 2.0 I&O Intake and Output 01/06/20 07:00 Intake Total 2414 ml Output Total 1840 ml Balance 574 ml IV Total 2414 ml Output Urine Total 1805 ml Drainage Total 35 ml PATIENT HAS A LANCASTER: Yes General: No acute distress, Other (sedated ) Abdomen: Soft, Other (binder in place, drain serosang ) Labs Laboratory Tests Test 01/05/20 04:15 01/05/20 07:50 01/06/20 00:33 01/06/20 04:40 White Blood Count 8.8 x10^3/uL (4.0-11.0) 11.0 x10^3/uL (4.0-11.0) Red Blood Count 4.12 x10^6/uL (4.30-5.70) 3.91 x10^6/uL (4.30-5.70) Hemoglobin 12.9 g/dL (13.0-17.5) 12.1 g/dL (13.0-17.5) Hematocrit 38.3 % (39.0-53.0) 36.2 % (39.0-53.0) Mean Corpuscular Volume 93 fL (79-100) 93 fL (79-100) Mean Corpuscular Hemoglobin 31 pg (25-35) 31 pg (25-35) Mean Corpuscular Hemoglobin Concent 34 g/dL (31-37) 33 g/dL (31-37) Red Cell Distribution Width 14.6 % (11.5-14.5) 14.3 % (11.5-14.5) Platelet Count 202 x10^3/uL (140-400) 194 x10^3/uL (140-400) Neutrophils (%) (Auto) 71 % (31-73) Lymphocytes (%) (Auto) 19 % (24-48) Monocytes (%) (Auto) 9 % (0-9) Eosinophils (%) (Auto) 0 % (0-3) Basophils (%) (Auto) 0 % (0-3) Neutrophils # (Auto) 6.3 x10^3/uL (1.8-7.7) Lymphocytes # (Auto) 1.6 x10^3/uL (1.0-4.8) Monocytes # (Auto) 0.8 x10^3/uL (0.0-1.1) Eosinophils # (Auto) 0.0 x10^3/uL (0.0-0.7) Basophils # (Auto) 0.0 x10^3/uL (0.0-0.2) Sodium Level 139 mmol/L (136-145) 139 mmol/L (136-145) Potassium Level 4.3 mmol/L (3.5-5.1) 4.0 mmol/L (3.5-5.1) Chloride Level 104 mmol/L (98-107) 105 mmol/L (98-107) Carbon Dioxide Level 26 mmol/L (21-32) 26 mmol/L (21-32) Anion Gap 9 (6-14) 8 (6-14) Blood Urea Nitrogen 31 mg/dL (8-26) 31 mg/dL (8-26) Creatinine 1.1 mg/dL (0.7-1.3) 1.3 mg/dL (0.7-1.3) Estimated GFR (Cockcroft-Gault) 65.1 53.7 Glucose Level 71 mg/dL (70-99) 111 mg/dL (70-99) Calcium Level 7.5 mg/dL (8.5-10.1) 7.6 mg/dL (8.5-10.1) Magnesium Level 2.2 mg/dL (1.8-2.4) O2 Saturation 94 % (92-99) Arterial Blood pH 7.32 (7.35-7.45) Arterial Blood pCO2 at Patient Temp 35 mmHg (35-46) Arterial Blood pO2 at Patient Temp 73 mmHg (65-108) Arterial Blood HCO3 18 mmol/L (21-28) Arterial Blood Base Excess -8 mmol/L (-3-3) FiO2 50 Glucose (Fingerstick) 105 mg/dL (70-99) Test 01/06/20 08:20 O2 Saturation 93 % (92-99) Arterial Blood pH 7.37 (7.35-7.45) Arterial Blood pCO2 at Patient Temp 41 mmHg (35-46) Arterial Blood pO2 at Patient Temp 69 mmHg (65-108) Arterial Blood HCO3 23 mmol/L (21-28) Arterial Blood Base Excess -2 mmol/L (-3-3) FiO2 45% ac 24, 550, 7 Laboratory Tests Test 01/06/20 00:33 01/06/20 04:40 01/06/20 08:20 Glucose (Fingerstick) 105 mg/dL (70-99) White Blood Count 11.0 x10^3/uL (4.0-11.0) Red Blood Count 3.91 x10^6/uL (4.30-5.70) Hemoglobin 12.1 g/dL (13.0-17.5) Hematocrit 36.2 % (39.0-53.0) Mean Corpuscular Volume 93 fL (79-100) Mean Corpuscular Hemoglobin 31 pg (25-35) Mean Corpuscular Hemoglobin Concent 33 g/dL (31-37) Red Cell Distribution Width 14.3 % (11.5-14.5) Platelet Count 194 x10^3/uL (140-400) Sodium Level 139 mmol/L (136-145) Potassium Level 4.0 mmol/L (3.5-5.1) Chloride Level 105 mmol/L (98-107) Carbon Dioxide Level 26 mmol/L (21-32) Anion Gap 8 (6-14) Blood Urea Nitrogen 31 mg/dL (8-26) Creatinine 1.3 mg/dL (0.7-1.3) Estimated GFR (Cockcroft-Gault) 53.7 Glucose Level 111 mg/dL (70-99) Calcium Level 7.6 mg/dL (8.5-10.1) O2 Saturation 93 % (92-99) Arterial Blood pH 7.37 (7.35-7.45) Arterial Blood pCO2 at Patient Temp 41 mmHg (35-46) Arterial Blood pO2 at Patient Temp 69 mmHg (65-108) Arterial Blood HCO3 23 mmol/L (21-28) Arterial Blood Base Excess -2 mmol/L (-3-3) FiO2 45% ac 24, 550, 7 Assessment/Plan supportive care Justicifation of Admission Dx: Justifications for Admission: Justification of Admission Dx: Yes VIET MILIAN NURSE FIRST ASSIST Jan 06, 2020 10:20
--- NOTE | 2020-01-06 10:21 | PDOC ---
PULMONARY PROGRESS NOTES DATE: 01/06/20 TIME: 10:17 Subjective remains intubated/sedated AC mode Vitals Vital Signs Date Time Temp Pulse Resp B/P (MAP) Pulse Ox O2 Delivery O2 Flow Rate FiO2 01/06/20 09:22 92 Ventilator 01/06/20 08:00 99.0 83 98/64 (75) 99.0 01/06/20 07:00 24 01/05/20 16:00 2.0 Lungs: Other (decrease bs) Cardiovascular: S1 Abdomen: Soft, Other (obese,drain in place) Extremities: Other (1=edema) Labs Laboratory Tests Test 01/05/20 04:15 01/05/20 07:50 01/06/20 00:33 01/06/20 04:40 White Blood Count 8.8 x10^3/uL (4.0-11.0) 11.0 x10^3/uL (4.0-11.0) Red Blood Count 4.12 x10^6/uL (4.30-5.70) 3.91 x10^6/uL (4.30-5.70) Hemoglobin 12.9 g/dL (13.0-17.5) 12.1 g/dL (13.0-17.5) Hematocrit 38.3 % (39.0-53.0) 36.2 % (39.0-53.0) Mean Corpuscular Volume 93 fL (79-100) 93 fL (79-100) Mean Corpuscular Hemoglobin 31 pg (25-35) 31 pg (25-35) Mean Corpuscular Hemoglobin Concent 34 g/dL (31-37) 33 g/dL (31-37) Red Cell Distribution Width 14.6 % (11.5-14.5) 14.3 % (11.5-14.5) Platelet Count 202 x10^3/uL (140-400) 194 x10^3/uL (140-400) Neutrophils (%) (Auto) 71 % (31-73) Lymphocytes (%) (Auto) 19 % (24-48) Monocytes (%) (Auto) 9 % (0-9) Eosinophils (%) (Auto) 0 % (0-3) Basophils (%) (Auto) 0 % (0-3) Neutrophils # (Auto) 6.3 x10^3/uL (1.8-7.7) Lymphocytes # (Auto) 1.6 x10^3/uL (1.0-4.8) Monocytes # (Auto) 0.8 x10^3/uL (0.0-1.1) Eosinophils # (Auto) 0.0 x10^3/uL (0.0-0.7) Basophils # (Auto) 0.0 x10^3/uL (0.0-0.2) Sodium Level 139 mmol/L (136-145) 139 mmol/L (136-145) Potassium Level 4.3 mmol/L (3.5-5.1) 4.0 mmol/L (3.5-5.1) Chloride Level 104 mmol/L (98-107) 105 mmol/L (98-107) Carbon Dioxide Level 26 mmol/L (21-32) 26 mmol/L (21-32) Anion Gap 9 (6-14) 8 (6-14) Blood Urea Nitrogen 31 mg/dL (8-26) 31 mg/dL (8-26) Creatinine 1.1 mg/dL (0.7-1.3) 1.3 mg/dL (0.7-1.3) Estimated GFR (Cockcroft-Gault) 65.1 53.7 Glucose Level 71 mg/dL (70-99) 111 mg/dL (70-99) Calcium Level 7.5 mg/dL (8.5-10.1) 7.6 mg/dL (8.5-10.1) Magnesium Level 2.2 mg/dL (1.8-2.4) O2 Saturation 94 % (92-99) Arterial Blood pH 7.32 (7.35-7.45) Arterial Blood pCO2 at Patient Temp 35 mmHg (35-46) Arterial Blood pO2 at Patient Temp 73 mmHg (65-108) Arterial Blood HCO3 18 mmol/L (21-28) Arterial Blood Base Excess -8 mmol/L (-3-3) FiO2 50 Glucose (Fingerstick) 105 mg/dL (70-99) Test 01/06/20 08:20 O2 Saturation 93 % (92-99) Arterial Blood pH 7.37 (7.35-7.45) Arterial Blood pCO2 at Patient Temp 41 mmHg (35-46) Arterial Blood pO2 at Patient Temp 69 mmHg (65-108) Arterial Blood HCO3 23 mmol/L (21-28) Arterial Blood Base Excess -2 mmol/L (-3-3) FiO2 45% ac 24, 550, 7 Laboratory Tests Test 01/06/20 00:33 01/06/20 04:40 01/06/20 08:20 Glucose (Fingerstick) 105 mg/dL (70-99) White Blood Count 11.0 x10^3/uL (4.0-11.0) Red Blood Count 3.91 x10^6/uL (4.30-5.70) Hemoglobin 12.1 g/dL (13.0-17.5) Hematocrit 36.2 % (39.0-53.0) Mean Corpuscular Volume 93 fL (79-100) Mean Corpuscular Hemoglobin 31 pg (25-35) Mean Corpuscular Hemoglobin Concent 33 g/dL (31-37) Red Cell Distribution Width 14.3 % (11.5-14.5) Platelet Count 194 x10^3/uL (140-400) Sodium Level 139 mmol/L (136-145) Potassium Level 4.0 mmol/L (3.5-5.1) Chloride Level 105 mmol/L (98-107) Carbon Dioxide Level 26 mmol/L (21-32) Anion Gap 8 (6-14) Blood Urea Nitrogen 31 mg/dL (8-26) Creatinine 1.3 mg/dL (0.7-1.3) Estimated GFR (Cockcroft-Gault) 53.7 Glucose Level 111 mg/dL (70-99) Calcium Level 7.6 mg/dL (8.5-10.1) O2 Saturation 93 % (92-99) Arterial Blood pH 7.37 (7.35-7.45) Arterial Blood pCO2 at Patient Temp 41 mmHg (35-46) Arterial Blood pO2 at Patient Temp 69 mmHg (65-108) Arterial Blood HCO3 23 mmol/L (21-28) Arterial Blood Base Excess -2 mmol/L (-3-3) FiO2 45% ac 24, 550, 7 Medications Active Scripts Medications Dose Route/Sig Max Daily Dose Days Date Category Lisinopril 40 Mg Tablet 1 Tab PO DAILY 01/05/20 Reported Comments CXR 01/04 CHF Impression . 1. Acute hypoxemic hypercarbic respiratory failure, expected multifactorial in etiology. 2. Abnormal chest x-ray.C/W CHF 3. Chronic obstructive pulmonary disease.could be severe 4. Obesity, probably obstructive sleep apnea-hypopnea syndrome. 5. Incarcerated ventral hernia, status post repair of incarcerated ventral hernia with mesh, postop day 1. 6. Hypertension. 7. Brief episode of atrial fibrillation with rapid ventricular response., V-tac Plan . PLAN AND RECOMMENDATIONS: 1. Titrate FiO2 to keep O2 saturation 94%.AC mode 2. s/p .IV lasix . mild improvemnt. wean sedation and assess for CPAP trial 3. Continue bronchodilator 4. Inhaled corticosteroid. 5. Cardiologyrec 6. Elevate head of bed. 7. Heparin for DVT prophylaxis. 8. Pepcid for stress ulcer prophylaxis. 9. He will need sleep study as an outpatient. 10. He will need to quit smoking forever. 11. The findings and recommendations were discussed with RN 12 IV bicarb prn d/w family This is critical care time 30 minutes without overlap. JOSH ESPINAL MD Jan 06, 2020 10:21
--- NOTE | 2020-01-06 10:46 | NUR ---
1000 Dr Guadarrama in sedation vacation w trial discussed in conversation w family as well as extubation process. Fent off already w propofol off now. RT informed at 1110 of positive cognition Trial start 1115 .BP 123/78,RR 24/ HR 78. Able to pull [id number] controlled RR 24-26 sats 93%. No overt struggling observed
[2020-01-06 11:52] LABS: BASE EXCESS ABG -5 mmol/L (-3-3); HCO3 ABG 19 mmol/L (21-28); PCO2 ABG 34 mmHg (35-46); PO2 ABG 74 mmHg (65-108); SAT O2 ABG 94 % (92-99)
--- NOTE | 2020-01-06 12:13 | NUR ---
SS following up with discharge planning. SS reviewed pt chart and discussed with pt RN. Pt is currently on the vent and PPN. Pt on weaning trial at this time. Pt's family wanting pt to go to inpatient rehabilitation at [place]. Pt will need PT/OT to evaluate when medically ready. SS will continue to follow for discharge planning.
[2020-01-06] MEDS ORDERED: SODIUM BICARB ADULT 8.4% 50 MEQ/50 ML DISP.SYRIN. IV ONE (12:15)
--- NOTE | 2020-01-06 12:15 | PDOC ---
[employer] PROGRESS NOTE Date of Service DOS: DATE: 01/06/20 TIME: 12:08 Chief Complaint Chief Complaint A/P: Incarcerated ventral hernia - NPO, Pulled NGT multiple times. To OR ?Atrial fibrillation with RVR - no EKG available. Off cardizem. NSR on EKG here. Will consult cardiology for this. Cont telemetry SHAQ - likely vasomotor nephropathy. No known renal history. Will hydrate as well. Thrombocytosis - likely from TARIQ undiagnosed, likely cause of inability to extubate COPD - pulm consulted post-op for failure to extubate. Duonebs q4hrs and pulmicort Obesity - counseled on weight loss, likely has TARIQ or OHS Smoker - counseled on cessation Hypercapnic respiratory failure - likely 2/2 undiagnosed TARIQ/OHS and underlying COPD. Pulm consulted. Vent wean daily FEN - NPO PPX - heparin FULL CODE Dispo - ICU for post op monitoring CC time 47 minutes History of Present Illness History of Present Illness 01/06/20 Patient seen and examined in ICU Chart reviewed Discussed with RN Discussed with patient's family OG to suction AC/24/550/45% PEEP: 7 01/05/20 Patient seen and examined in ICU Discussed with RN Discussed with , she requested a nicotine patch for patient Maddox to bedside AC/24/550/45% Mr Ortega is a 74 year old male w/ PMHx OA, COPD, smoker who presented via private vehicle to [place] ED with abdominal pain with vomiting. CT abdomen pelvis was ordered and did show an incarcerated hernia with obs truction. Upon NGT placement on telemetry was noted with atrial fibrillation with RVR. He was started on diltiazem and transferred to [facility]. Initially seen on cardiovascular floor. Labs significant for WBC 9.6, Hb 17, platelets 324, NA 136, K3.9, BUN 383, CR 2.1, glucose 121, lactate 2.3, troponin negative. INR 1.2 EKG performed here is normal sinus rhythm with no ST segment changes. To the OR for hernia reduction, actually was reducible in the OR physically, mesh placed on 01/03/20 Postoperatively unable to extubate due to significant hypercapnia found with ABG is 7.17, 69.5, 199.7. Seen in ICU on ventilator. When sedation was weaned he was very panicked. CXR with bibasilar atelectasis. On AC mode rate of 16, TV 550, FiO2 60%, PEEP 7 ABG 7.34/42/103 on this. Cr down to 1.2 Plan: Cont vent in ICU Vitals/I&O Vitals/I&O: Vital Signs Date Time Temp Pulse Resp B/P (MAP) Pulse Ox O2 Delivery O2 Flow Rate FiO2 01/06/20 11:15 92 01/06/20 11:11 Ventilator 01/06/20 11:00 94 25 127/69 (88) 01/06/20 08:00 99.0 99.0 01/05/20 16:00 2.0 I & O 01/05/20 01/05/20 01/06/20 15:00 23:00 07:00 Intake Total 1686 ml 728 ml Output Total 1060 ml 580 ml 200 ml Balance -1060 ml 1106 ml 528 ml Physical Exam General: No acute distress, Other (sedated ) Heart: Regular rate, No murmurs Lungs: Other (decrease bs) Abdomen: Soft, Other (binder in place, drain serosang ) Extremities: No edema Skin: No rashes, No breakdown, No significant lesion Labs Labs: Laboratory Tests Test 01/06/20 00:33 01/06/20 04:40 01/06/20 08:20 Glucose (Fingerstick) 105 mg/dL (70-99) White Blood Count 11.0 x10^3/uL (4.0-11.0) Red Blood Count 3.91 x10^6/uL (4.30-5.70) Hemoglobin 12.1 g/dL (13.0-17.5) Hematocrit 36.2 % (39.0-53.0) Mean Corpuscular Volume 93 fL (79-100) Mean Corpuscular Hemoglobin 31 pg (25-35) Mean Corpuscular Hemoglobin Concent 33 g/dL (31-37) Red Cell Distribution Width 14.3 % (11.5-14.5) Platelet Count 194 x10^3/uL (140-400) Sodium Level 139 mmol/L (136-145) Potassium Level 4.0 mmol/L (3.5-5.1) Chloride Level 105 mmol/L (98-107) Carbon Dioxide Level 26 mmol/L (21-32) Anion Gap 8 (6-14) Blood Urea Nitrogen 31 mg/dL (8-26) Creatinine 1.3 mg/dL (0.7-1.3) Estimated GFR (Cockcroft-Gault) 53.7 Glucose Level 111 mg/dL (70-99) Calcium Level 7.6 mg/dL (8.5-10.1) O2 Saturation 93 % (92-99) Arterial Blood pH 7.37 (7.35-7.45) Arterial Blood pCO2 at Patient Temp 41 mmHg (35-46) Arterial Blood pO2 at Patient Temp 69 mmHg (65-108) Arterial Blood HCO3 23 mmol/L (21-28) Arterial Blood Base Excess -2 mmol/L (-3-3) FiO2 45% ac 24, 550, 7 Assessment and Plan Assessmemt and Plan Assessment: Incarcerated ventral hernia - NPO, Pulled NGT multiple times. To OR ?Atrial fibrillation with RVR - no EKG available. Off cardizem. NSR on EKG here. Will consult cardiology for this. Cont telemetry SHAQ - likely vasomotor nephropathy. No known renal history. Will hydrate as we ll. Thrombocytosis - likely from TARIQ undiagnosed, likely cause of inability to extubate COPD - pulm consulted post-op for failure to extubate. Duonebs q4hrs and pulmicort Obesity - counseled on weight loss, likely has TARIQ or OHS Smoker - counseled on cessation Hypercapnic respiratory failure - likely 2/2 undiagnosed TARIQ/OHS and underlying COPD. Pulm consulted. Vent wean daily Plan: ICU monitoring PPN Wound care Continue nicotine patch Sedation with propofol SCDs for DVT prophylaxis Full code Appreciate subspecialist input Total time 34-minute Comment Review of Relevant I have reviewed the following items quyen (where applicable) has been applied. Medications: Current Medications Medications (Trade) Dose Ordered Sig/Timur Route PRN Reason Start Time Stop Time Status Last Admin Dose Admin Nicotine (Nicoderm Cq 21mg) 1 patch DAILY TD 01/05/20 13:00 01/05/20 14:26 Justicifation of Admission Dx: Justifications for Admission: Justification of Admission Dx: Yes LISE SCHROEDER III DO Jan 06, 2020 12:15
[2020-01-06] MEDS ORDERED: ATROPINE 0.5 MG/5 ML DISP.SYRINGE. IV PRN (13:15)
[2020-01-06] MEDS ORDERED: fentaNYL PF VIAL 100 MCG/2 ML VIAL IVP PRN (13:15)
[2020-01-06] MEDS ORDERED: IV NORMAL SALINE 500ML BAG 500 ML IV PRN (13:15)
[2020-01-06] MEDS ORDERED: DEXMEDETOMIDINE 400 MCG in IV NORMAL SALINE 100ML 96 ML IV PRN (13:15)
[2020-01-06] MEDS ORDERED: ASPIRIN RECTAL 300 MG SUPP. PR ONE (14:00)
--- NOTE | 2020-01-06 14:05 | PDOC ---
CHAU TRAVIS BUILD ENGINEER 01/06/20 1405: CARDIO Progress Notes Date and Time Date of Service 01/06/2020 Time of Evaluation 1310 Subjective Subjective: No Chest Pain, Other (drowsy) Vitals Vitals Vital Signs Date Time Temp Pulse Resp B/P (MAP) Pulse Ox O2 Delivery O2 Flow Rate FiO2 01/06/20 11:15 92 01/06/20 11:11 Ventilator 01/06/20 11:00 94 25 127/69 (88) 01/06/20 08:00 99.0 99.0 01/05/20 16:00 2.0 Weight Weight [ ] Input and Output Intake and Output Intake and Output 01/06/20 07:00 Intake Total 2414 ml Output Total 1840 ml Balance 574 ml IV Total 2414 ml Output Urine Total 1805 ml Drainage Total 35 ml Laboratory Labs Laboratory Tests Test 01/06/20 00:33 01/06/20 04:40 01/06/20 08:20 Glucose (Fingerstick) 105 mg/dL (70-99) White Blood Count 11.0 x10^3/uL (4.0-11.0) Red Blood Count 3.91 x10^6/uL (4.30-5.70) Hemoglobin 12.1 g/dL (13.0-17.5) Hematocrit 36.2 % (39.0-53.0) Mean Corpuscular Volume 93 fL (79-100) Mean Corpuscular Hemoglobin 31 pg (25-35) Mean Corpuscular Hemoglobin Concent 33 g/dL (31-37) Red Cell Distribution Width 14.3 % (11.5-14.5) Platelet Count 194 x10^3/uL (140-400) Sodium Level 139 mmol/L (136-145) Potassium Level 4.0 mmol/L (3.5-5.1) Chloride Level 105 mmol/L (98-107) Carbon Dioxide Level 26 mmol/L (21-32) Anion Gap 8 (6-14) Blood Urea Nitrogen 31 mg/dL (8-26) Creatinine 1.3 mg/dL (0.7-1.3) Estimated GFR (Cockcroft-Gault) 53.7 Glucose Level 111 mg/dL (70-99) Calcium Level 7.6 mg/dL (8.5-10.1) O2 Saturation 93 % (92-99) Arterial Blood pH 7.37 (7.35-7.45) Arterial Blood pCO2 at Patient Temp 41 mmHg (35-46) Arterial Blood pO2 at Patient Temp 69 mmHg (65-108) Arterial Blood HCO3 23 mmol/L (21-28) Arterial Blood Base Excess -2 mmol/L (-3-3) FiO2 45% ac 24, 550, 7 Physical Exam HEENT: Neck Supple W Full Motion Chest: Symmetric LUNGS: Other (crackles) Heart: irregularly irregular (AFIB) Abdomen: Other (S/P ventralhernia repair) Extremities: Other (1-2+ bilateral LE pitting edema) Neurology: other (drowsy) Assessment Assessment 1. AFIB RVR: new, possibly induced by catecholamine surge from significant GI issue. Reverted back on RVR today after extubation 2. Abdominal pain with incarcerated ventral hernia: S/P repair with mesh POD#3 3. Acute respiratory failure: pulmonary following. post extubation 4. HTN: controlled 5. NSVT: on 01/04/2020, none further. Maintaining SR/ST. EF and WM nml with moderate RV dilation 6. Suspected TARIQ: 7. Acute diastolic CHF 8. Morbid obesity Recommendations 1. Lasix x1. Lopressor IV. Rectal ASA while NPO. Start on amiodarone protocol 2. Bipap. TSH, Mg and EKG. 3. MCOT Justicifation of Admission Dx: Justifications for Admission: Justification of Admission Dx: Yes AAKASH GUTIERREZ MD 01/06/201923: CARDIO Progress Notes Assessment Assessment Patient seen and examined. Agree with POCKET SETTER LOCKSTITCH's assessment and plan. Patient back in atrial fib with RVR Start amiodarone for rhythm maintenance ARF s/p extubation, pulm team following Continue post op care per GS team CHAU TRAVIS APRN Jan 06, 2020 14:05 AAKASH GUTIERREZ MD Jan 06, 2020 19:24
[2020-01-06] MEDS ORDERED: METOPROLOL TARTRATE 5 MG/5 ML VIAL. IVP ONE ×2 (14:30→16:45)
[2020-01-06] MEDS ORDERED: FUROSEMIDE 40 MG/4 ML VIAL. IVP ONE (14:30)
[2020-01-06] MEDS ORDERED: AMIODARONE 150 MG in IV DEXTROSE 5% 100ML 100 ML IV ONE (15:00)
--- NOTE | 2020-01-06 16:03 | EKG ---
[facility] [address] [place] [address] Test Date: 2020-01-06 Test Time: 16:00:31 Pat Name: MACO VILLARREAL Department: Room: 106 1 Gender: M [employer] Instructor: RAFAELA : 1945 Requested By: CHAU TRAVIS Order Number: [id number] Reading MD: Measurements Intervals [place] Rate: 150 P: DE: QRS: 49 QRSD: 76 T: 44 QT: 322 QTc: 511 Interpretive Statements IRREGULAR RHYTHM, NO P-WAVE FOUND LOW LIMB LEAD VOLTAGE NO SPECIFIC ECG ABNORMALITIES RI6.02 Compared to ECG 01/03/2020 07:35:55 Sinus rhythm no longer present
[2020-01-06] MEDS: AMIODARONE 450 MG in IV DEXTROSE 5% 250 ML IV PRN (16:10)
--- NOTE | 2020-01-06 16:18 | RAD ---
Exam: Chest one view INDICATION: Ventilator TECHNIQUE: Frontal view of the chest Comparisons: 01/05/2020 FINDINGS: The cardiomediastinal silhouette and pulmonary vessels are within normal limits. Hazy opacity at the lung bases bilaterally. No pleural effusion. IMPRESSION: Patchy airspace disease at the lung bases bilaterally. This could relate to pulmonary edema however superimposed infectious process is difficult to exclude. Electronically signed by: Aguilar Moreno MD (01/06/2020 4:15 PM) [id number]
[2020-01-06 16:29] LABS: FIO2 ABG 45% PS 10 PEEP 5
[2020-01-06] MEDS: METOPROLOL TARTRATE 5 MG/5 ML VIAL. IVP SCH (18:00)
[2020-01-06] MEDS: FAMOTIDINE 20 MG/2 ML VIAL IVP SCH (21:26)
[2020-01-07] VITALS (17 sets, daily range): BP systolic 125–164; BP diastolic 66–130
[2020-01-07] MEDS: METOPROLOL TARTRATE 5 MG/5 ML VIAL. IVP SCH ×4 (00:26→17:06)
[2020-01-07] MEDS: IPRATRPIUM/ALBUTEROL 0.5/2.5MG 3 ML NEBU. NEB SCH ×6 (03:15→23:44)
[2020-01-07] MEDS: AMIODARONE 450 MG in IV DEXTROSE 5% 250 ML IV PRN (03:18)
[2020-01-07] MEDS: AMINO AC 3%/ELECTROLYTE/GLYCER 1,000 ML IV SCH ×2 (03:20→17:06)
[2020-01-07 05:58] LABS: BASO % 0 % (0-3); EOS # 0.1 x10^3/uL (0.0-0.7); EOS % 1 % (0-3); HEMATOCRIT 36.3 % (39.0-53.0); HEMOGLOBIN 12.1 g/dL (13.0-17.5); LYMPH # 0.9 x10^3/uL (1.0-4.8); LYMPH % 11 % (24-48); MEAN CORPUSCULAR HEMOGLOBIN 31 pg (25-35); MEAN CORPUSCULAR HGB CONC 33 g/dL (31-37); MEAN CORPUSCULAR VOLUME 92 fL (79-100); MONO # 0.9 x10^3/uL (0.0-1.1); MONO % 10 % (0-9); NEUT % 78 % (31-73); PLATELET COUNT 208 x10^3/uL (140-400); RED BLOOD COUNT 3.94 x10^6/uL (4.30-5.70)
[2020-01-07] MEDS: HEPARIN for SUB-Q USE 5,000 UNIT/ML VIAL. SQ SCH ×3 (06:05→21:55)
[2020-01-07 06:18] LABS: GFR 72.6; POTASSIUM 3.6 mmol/L (3.5-5.1)
[2020-01-07] MEDS: NICOTINE 21MG PATCH. TD SCH (08:46)
--- NOTE | 2020-01-07 08:57 | PDOC ---
[employer] PROGRESS NOTE Date of Service DOS: DATE: 01/07/20 TIME: 08:43 Chief Complaint Chief Complaint A/P: Incarcerated ventral hernia - NPO, Pulled NGT multiple times. To OR ?Atrial fibrillation with RVR - no EKG available. Off cardizem. NSR on EKG here. Will consult cardiology for this. Cont telemetry SHAQ - likely vasomotor nephropathy. No known renal history. Will hydrate as well. Thrombocytosis - likely from TARIQ undiagnosed, likely cause of inability to extubate COPD - pulm consulted post-op for failure to extubate. Duonebs q4hrs and pulmicort Obesity - counseled on weight loss, likely has TARIQ or OHS Smoker - counseled on cessation Hypercapnic respiratory failure - likely 2/2 undiagnosed TARIQ/OHS and underlying COPD. Pulm consulted. Vent wean daily FEN - NPO PPX - heparin FULL CODE Dispo - ICU for post op monitoring CC time 47 minutes History of Present Illness History of Present Illness 01/07/20 Patient seen and examined in ICU CHart reviewed Discussed with RN Patient has been extubated Patient was able to follow command 01/06/20 Patient seen and examined in ICU Chart reviewed Discussed with RN Discussed with patient's family OG to suction AC/24/550/45% PEEP: 7 01/05/20 Patient seen and examined in ICU Discussed with RN Discussed with , she requested a nicotine patch for patient Maddox to bedside AC/24/550/45% Mr Ortega is a 74 year old male w/ PMHx OA, COPD, smoker who presented via private vehicle to [facility] with abdominal pain with vomiting. CT abdomen pelvis was ordered and did show an incarcerated hernia with obstruction. Upon NGT placement on telemetry was noted with atrial fibrillation with RVR. He was started on diltiazem and transferred to [facility]. Initially seen on cardiovascular floor. Labs significant for WBC 9.6, Hb 17, platelets 324, NA 136, K3.9, BUN 383, CR 2.1, glucose 121, lactate 2.3, troponin negative. INR 1.2 EKG performed here is normal sinus rhythm with no ST segment changes. To the OR for hernia reduction, actually was reducible in the OR physically, mesh placed on 01/03/20 Postoperatively unable to extubate due to significant hypercapnia found with ABG is 7.17, 69.5, 199.7. Seen in ICU on ventilator. When sedation was weaned he was very panicked. CXR with bibasilar atelectasis. On AC mode rate of 16, TV 550, FiO2 60%, PEEP 7 ABG 7.34/42/103 on this. Cr down to 1.2 Plan: Cont vent in ICU Vitals/I&O Vitals/I&O: Vital Signs Date Time Temp Pulse Resp B/P (MAP) Pulse Ox O2 Delivery O2 Flow Rate FiO2 01/07/20 07:00 70 22 138/71 (93) BiPAP/CPAP 5.0 01/07/20 04:00 98.4 98.4 01/07/20 03:15 93 I & O 01/06/20 01/06/20 01/07/20 15:00 23:00 07:00 Intake Total 0 ml 0 ml 718 ml Output Total 945 ml 2745 ml 425 ml Balance -945 ml -2745 ml 293 ml Physical Exam General: Alert, No acute distress, Other (sedated ) Heart: Regular rate, No murmurs Lungs: Other (decrease bs) Abdomen: Soft, Other (binder in place, drain serosang ) Extremities: No edema Skin: No rashes, No breakdown, No significant lesion Labs Labs: Laboratory Tests Test 01/06/20 11:45 01/07/20 05:15 O2 Saturation 94 % (92-99) Arterial Blood pH 7.38 (7.35-7.45) Arterial Blood pCO2 at Patient Temp 34 mmHg (35-46) Arterial Blood pO2 at Patient Temp 74 mmHg (65-108) Arterial Blood HCO3 19 mmol/L (21-28) Arterial Blood Base Excess -5 mmol/L (-3-3) FiO2 45% ps 10 peep 5 White Blood Count 9.0 x10^3/uL (4.0-11.0) Red Blood Count 3.94 x10^6/uL (4.30-5.70) Hemoglobin 12.1 g/dL (13.0-17.5) Hematocrit 36.3 % (39.0-53.0) Mean Corpuscular Volume 92 fL (79-100) Mean Corpuscular Hemoglobin 31 pg (25-35) Mean Corpuscular Hemoglobin Concent 33 g/dL (31-37) Red Cell Distribution Width 14.0 % (11.5-14.5) Platelet Count 208 x10^3/uL (140-400) Neutrophils (%) (Auto) 78 % (31-73) Lymphocytes (%) (Auto) 11 % (24-48) Monocytes (%) (Auto) 10 % (0-9) Eosinophils (%) (Auto) 1 % (0-3) Basophils (%) (Auto) 0 % (0-3) Neutrophils # (Auto) 7.0 x10^3/uL (1.8-7.7) Lymphocytes # (Auto) 0.9 x10^3/uL (1.0-4.8) Monocytes # (Auto) 0.9 x10^3/uL (0.0-1.1) Eosinophils # (Auto) 0.1 x10^3/uL (0.0-0.7) Basophils # (Auto) 0.0 x10^3/uL (0.0-0.2) Sodium Level 140 mmol/L (136-145) Potassium Level 3.6 mmol/L (3.5-5.1) Chloride Level 105 mmol/L (98-107) Carbon Dioxide Level 28 mmol/L (21-32) Anion Gap 7 (6-14) Blood Urea Nitrogen 25 mg/dL (8-26) Creatinine 1.0 mg/dL (0.7-1.3) Estimated GFR (Cockcroft-Gault) 72.6 Glucose Level 118 mg/dL (70-99) Calcium Level 8.0 mg/dL (8.5-10.1) Assessment and Plan Assessmemt and Plan Assessment: Incarcerated ventral hernia - NPO, Pulled NGT multiple times. To OR ?Atrial fibrillation with RVR - no EKG available. Off cardizem. NSR on EKG here. Will consult cardiology for this. Cont telemetry SHAQ - likely vasomotor nephropathy. No known renal history. Will hydrate as well. Thrombocytosis - likely from TARIQ undiagnosed, likely cause of inability to extubate COPD - pulm consulted post-op for failure to extubate. Duonebs q4hrs and pulmicort Obesity - counseled on weight loss, likely has TARIQ or OHS Smoker - counseled on cessation Hypercapnic respiratory failure - likely 2/2 undiagnosed TARIQ/OHS and underlying COPD. Pulm consulted. Vent wean daily Plan: ICU monitoring PRN Bipap Continue steroids PPN Wound care SCDs for DVT prophylaxis Appreciate subspecialist input Comment Review of Relevant I have reviewed the following items quyen (where applicable) has been applied. Medications: Current Medications Medications (Trade) Dose Ordered Sig/Timur Route PRN Reason Start Time Stop Time Status Last Admin Dose Admin Sodium Bicarbonate (Sodium Bicarb Adult 8.4% Syr) 50 meq 1X ONCE IV 01/06/20 12:15 01/06/20 12:16 DC 01/06/20 12:15 Furosemide (Lasix) 40 mg 1X ONCE IVP 01/06/20 14:30 01/06/20 14:31 DC 01/06/20 14:30 Metoprolol Tartrate (Lopressor Vial) 5 mg 1X ONCE IVP 01/06/20 14:30 01/06/20 14:31 DC 01/06/20 14:30 Metoprolol Tartrate (Lopressor Vial) 5 mg Q6HRS IVP 01/06/20 18:00 01/07/20 06:03 Aspirin (Aspirin Rectal Supp) 300 mg 1X ONCE IN 01/06/20 14:00 01/06/20 14:01 DC 01/06/20 19:39 Amiodarone HCl 150 mg/Dextrose 103 ml @ 600 mls/hr 1X ONCE IV 01/06/20 15:00 01/06/20 15:10 DC 01/06/20 15:30 Amiodarone HCl 450 mg/Dextrose 259 ml @ 0 mls/hr CONT PRN IV SEE I/O RECORD 01/06/20 15:00 01/07/20 14:59 01/07/20 03:18 Justicifation of Admission Dx: Justifications for Admission: Justification of Admission Dx: Yes LISE SCHROEDER III DO Jan 07, 2020 08:57
[2020-01-07] MEDS: NYSTATIN TOPICAL POWDER 15GM BOTTLE. TP SCH ×2 (09:00→21:51)
[2020-01-07] MEDS: BUDESONIDE 0.5 MG/2 ML NEBU. NEB SCH ×2 (09:10→19:43)
--- NOTE | 2020-01-07 10:57 | PDOC ---
PULMONARY PROGRESS NOTES DATE: 01/07/20 TIME: 10:53 Subjective extubated 01/06/2020 now on 5 liters N/C Vitals Vital Signs Date Time Temp Pulse Resp B/P (MAP) Pulse Ox O2 Delivery O2 Flow Rate FiO2 01/07/20 09:11 93 Nasal Cannula 5.0 01/07/20 09:00 76 20 140/78 (98) 01/07/20 08:00 98.6 98.6 ROS: No Nausea, No Chest Pain, No Abdominal Pain, No Increase Cough Lungs: Other (decrease bs) Cardiovascular: S1 Abdomen: Soft, Other (obese,drain in place) Neuro Exam: Alert, Oriented Extremities: Other (1=edema) Labs Laboratory Tests Test 01/06/20 00:33 01/06/20 04:40 01/06/20 08:20 01/06/20 11:45 Glucose (Fingerstick) 105 mg/dL (70-99) White Blood Count 11.0 x10^3/uL (4.0-11.0) Red Blood Count 3.91 x10^6/uL (4.30-5.70) Hemoglobin 12.1 g/dL (13.0-17.5) Hematocrit 36.2 % (39.0-53.0) Mean Corpuscular Volume 93 fL (79-100) Mean Corpuscular Hemoglobin 31 pg (25-35) Mean Corpuscular Hemoglobin Concent 33 g/dL (31-37) Red Cell Distribution Width 14.3 % (11.5-14.5) Platelet Count 194 x10^3/uL (140-400) Sodium Level 139 mmol/L (136-145) Potassium Level 4.0 mmol/L (3.5-5.1) Chloride Level 105 mmol/L (98-107) Carbon Dioxide Level 26 mmol/L (21-32) Anion Gap 8 (6-14) Blood Urea Nitrogen 31 mg/dL (8-26) Creatinine 1.3 mg/dL (0.7-1.3) Estimated GFR (Cockcroft-Gault) 53.7 Glucose Level 111 mg/dL (70-99) Calcium Level 7.6 mg/dL (8.5-10.1) Magnesium Level 2.4 mg/dL (1.8-2.4) Thyroid Stimulating Hormone (TSH) 0.339 uIU/mL (0.358-3.74) O2 Saturation 93 % (92-99) 94 % (92-99) Arterial Blood pH 7.37 (7.35-7.45) 7.38 (7.35-7.45) Arterial Blood pCO2 at Patient Temp 41 mmHg (35-46) 34 mmHg (35-46) Arterial Blood pO2 at Patient Temp 69 mmHg (65-108) 74 mmHg (65-108) Arterial Blood HCO3 23 mmol/L (21-28) 19 mmol/L (21-28) Arterial Blood Base Excess -2 mmol/L (-3-3) -5 mmol/L (-3-3) FiO2 45% ac 24, 550, 7 45% ps 10 peep 5 Test 01/07/20 05:15 White Blood Count 9.0 x10^3/uL (4.0-11.0) Red Blood Count 3.94 x10^6/uL (4.30-5.70) Hemoglobin 12.1 g/dL (13.0-17.5) Hematocrit 36.3 % (39.0-53.0) Mean Corpuscular Volume 92 fL (79-100) Mean Corpuscular Hemoglobin 31 pg (25-35) Mean Corpuscular Hemoglobin Concent 33 g/dL (31-37) Red Cell Distribution Width 14.0 % (11.5-14.5) Platelet Count 208 x10^3/uL (140-400) Neutrophils (%) (Auto) 78 % (31-73) Lymphocytes (%) (Auto) 11 % (24-48) Monocytes (%) (Auto) 10 % (0-9) Eosinophils (%) (Auto) 1 % (0-3) Basophils (%) (Auto) 0 % (0-3) Neutrophils # (Auto) 7.0 x10^3/uL (1.8-7.7) Lymphocytes # (Auto) 0.9 x10^3/uL (1.0-4.8) Monocytes # (Auto) 0.9 x10^3/uL (0.0-1.1) Eosinophils # (Auto) 0.1 x10^3/uL (0.0-0.7) Basophils # (Auto) 0.0 x10^3/uL (0.0-0.2) Sodium Level 140 mmol/L (136-145) Potassium Level 3.6 mmol/L (3.5-5.1) Chloride Level 105 mmol/L (98-107) Carbon Dioxide Level 28 mmol/L (21-32) Anion Gap 7 (6-14) Blood Urea Nitrogen 25 mg/dL (8-26) Creatinine 1.0 mg/dL (0.7-1.3) Estimated GFR (Cockcroft-Gault) 72.6 Glucose Level 118 mg/dL (70-99) Calcium Level 8.0 mg/dL (8.5-10.1) Laboratory Tests Test 01/06/20 11:45 01/07/20 05:15 O2 Saturation 94 % (92-99) Arterial Blood pH 7.38 (7.35-7.45) Arterial Blood pCO2 at Patient Temp 34 mmHg (35-46) Arterial Blood pO2 at Patient Temp 74 mmHg (65-108) Arterial Blood HCO3 19 mmol/L (21-28) Arterial Blood Base Excess -5 mmol/L (-3-3) FiO2 45% ps 10 peep 5 White Blood Count 9.0 x10^3/uL (4.0-11.0) Red Blood Count 3.94 x10^6/uL (4.30-5.70) Hemoglobin 12.1 g/dL (13.0-17.5) Hematocrit 36.3 % (39.0-53.0) Mean Corpuscular Volume 92 fL (79-100) Mean Corpuscular Hemoglobin 31 pg (25-35) Mean Corpuscular Hemoglobin Concent 33 g/dL (31-37) Red Cell Distribution Width 14.0 % (11.5-14.5) Platelet Count 208 x10^3/uL (140-400) Neutrophils (%) (Auto) 78 % (31-73) Lymphocytes (%) (Auto) 11 % (24-48) Monocytes (%) (Auto) 10 % (0-9) Eosinophils (%) (Auto) 1 % (0-3) Basophils (%) (Auto) 0 % (0-3) Neutrophils # (Auto) 7.0 x10^3/uL (1.8-7.7) Lymphocytes # (Auto) 0.9 x10^3/uL (1.0-4.8) Monocytes # (Auto) 0.9 x10^3/uL (0.0-1.1) Eosinophils # (Auto) 0.1 x10^3/uL (0.0-0.7) Basophils # (Auto) 0.0 x10^3/uL (0.0-0.2) Sodium Level 140 mmol/L (136-145) Potassium Level 3.6 mmol/L (3.5-5.1) Chloride Level 105 mmol/L (98-107) Carbon Dioxide Level 28 mmol/L (21-32) Anion Gap 7 (6-14) Blood Urea Nitrogen 25 mg/dL (8-26) Creatinine 1.0 mg/dL (0.7-1.3) Estimated GFR (Cockcroft-Gault) 72.6 Glucose Level 118 mg/dL (70-99) Calcium Level 8.0 mg/dL (8.5-10.1) Medications Active Scripts Medications Dose Route/Sig Max Daily Dose Days Date Category Lisinopril 40 Mg Tablet 1 Tab PO DAILY 01/05/20 Reported Comments CXR 01/04 CHF Impression . 1. Acute hypoxemic hypercarbic respiratory failure, expected multifactorial in etiology-- improved 2. Abnormal chest x-ray.C/W CHF 3. Chronic obstructive pulmonary disease.could be severe 4. Obesity, probably obstructive sleep apnea-hypopnea syndrome. 5. Incarcerated ventral hernia, status post repair of incarcerated ventral hernia with mesh, postop day 1. 6. Hypertension. 7. Brief episode of atrial fibrillation with rapid ventricular response., V-tac-- now NSR Plan . PLAN AND RECOMMENDATIONS: cont. supplemental oxygen now on 5 liters, cont. BIPAP at [facility], extubated 01/06/20 Continue bronchodilator Inhaled corticosteroid. Follow curhery recs, PPN for nutritional support Follow Cardiology recs Elevate head of bed. Heparin for DVT prophylaxis. Pepcid for stress ulcer prophylaxis. He will need sleep study as an outpatient. He will need to quit smoking forever. The findings and recommendations were discussed with RN This is critical care time 30 minutes without overlap. JOSH ESPINAL MD Jan 07, 2020 10:57
--- NOTE | 2020-01-07 10:58 | PDOC ---
PULMONARY PROGRESS NOTES DATE: 01/07/20 TIME: 10:55 Subjective extubated canula Vitals Vital Signs Date Time Temp Pulse Resp B/P (MAP) Pulse Ox O2 Delivery O2 Flow Rate FiO2 01/07/20 09:11 93 Nasal Cannula 5.0 01/07/20 09:00 76 20 140/78 (98) 01/07/20 08:00 98.6 98.6 General: Alert, No acute distress Lungs: Other (decrease bs) Cardiovascular: S1 Abdomen: Soft, Other (obese,drain in place) Neuro Exam: Alert Extremities: Other (1=edema) Labs Laboratory Tests Test 01/06/20 00:33 01/06/20 04:40 01/06/20 08:20 01/06/20 11:45 Glucose (Fingerstick) 105 mg/dL (70-99) White Blood Count 11.0 x10^3/uL (4.0-11.0) Red Blood Count 3.91 x10^6/uL (4.30-5.70) Hemoglobin 12.1 g/dL (13.0-17.5) Hematocrit 36.2 % (39.0-53.0) Mean Corpuscular Volume 93 fL (79-100) Mean Corpuscular Hemoglobin 31 pg (25-35) Mean Corpuscular Hemoglobin Concent 33 g/dL (31-37) Red Cell Distribution Width 14.3 % (11.5-14.5) Platelet Count 194 x10^3/uL (140-400) Sodium Level 139 mmol/L (136-145) Potassium Level 4.0 mmol/L (3.5-5.1) Chloride Level 105 mmol/L (98-107) Carbon Dioxide Level 26 mmol/L (21-32) Anion Gap 8 (6-14) Blood Urea Nitrogen 31 mg/dL (8-26) Creatinine 1.3 mg/dL (0.7-1.3) Estimated GFR (Cockcroft-Gault) 53.7 Glucose Level 111 mg/dL (70-99) Calcium Level 7.6 mg/dL (8.5-10.1) Magnesium Level 2.4 mg/dL (1.8-2.4) Thyroid Stimulating Hormone (TSH) 0.339 uIU/mL (0.358-3.74) O2 Saturation 93 % (92-99) 94 % (92-99) Arterial Blood pH 7.37 (7.35-7.45) 7.38 (7.35-7.45) Arterial Blood pCO2 at Patient Temp 41 mmHg (35-46) 34 mmHg (35-46) Arterial Blood pO2 at Patient Temp 69 mmHg (65-108) 74 mmHg (65-108) Arterial Blood HCO3 23 mmol/L (21-28) 19 mmol/L (21-28) Arterial Blood Base Excess -2 mmol/L (-3-3) -5 mmol/L (-3-3) FiO2 45% ac 24, 550, 7 45% ps 10 peep 5 Test 01/07/20 05:15 White Blood Count 9.0 x10^3/uL (4.0-11.0) Red Blood Count 3.94 x10^6/uL (4.30-5.70) Hemoglobin 12.1 g/dL (13.0-17.5) Hematocrit 36.3 % (39.0-53.0) Mean Corpuscular Volume 92 fL (79-100) Mean Corpuscular Hemoglobin 31 pg (25-35) Mean Corpuscular Hemoglobin Concent 33 g/dL (31-37) Red Cell Distribution Width 14.0 % (11.5-14.5) Platelet Count 208 x10^3/uL (140-400) Neutrophils (%) (Auto) 78 % (31-73) Lymphocytes (%) (Auto) 11 % (24-48) Monocytes (%) (Auto) 10 % (0-9) Eosinophils (%) (Auto) 1 % (0-3) Basophils (%) (Auto) 0 % (0-3) Neutrophils # (Auto) 7.0 x10^3/uL (1.8-7.7) Lymphocytes # (Auto) 0.9 x10^3/uL (1.0-4.8) Monocytes # (Auto) 0.9 x10^3/uL (0.0-1.1) Eosinophils # (Auto) 0.1 x10^3/uL (0.0-0.7) Basophils # (Auto) 0.0 x10^3/uL (0.0-0.2) Sodium Level 140 mmol/L (136-145) Potassium Level 3.6 mmol/L (3.5-5.1) Chloride Level 105 mmol/L (98-107) Carbon Dioxide Level 28 mmol/L (21-32) Anion Gap 7 (6-14) Blood Urea Nitrogen 25 mg/dL (8-26) Creatinine 1.0 mg/dL (0.7-1.3) Estimated GFR (Cockcroft-Gault) 72.6 Glucose Level 118 mg/dL (70-99) Calcium Level 8.0 mg/dL (8.5-10.1) Laboratory Tests Test 01/06/20 11:45 01/07/20 05:15 O2 Saturation 94 % (92-99) Arterial Blood pH 7.38 (7.35-7.45) Arterial Blood pCO2 at Patient Temp 34 mmHg (35-46) Arterial Blood pO2 at Patient Temp 74 mmHg (65-108) Arterial Blood HCO3 19 mmol/L (21-28) Arterial Blood Base Excess -5 mmol/L (-3-3) FiO2 45% ps 10 peep 5 White Blood Count 9.0 x10^3/uL (4.0-11.0) Red Blood Count 3.94 x10^6/uL (4.30-5.70) Hemoglobin 12.1 g/dL (13.0-17.5) Hematocrit 36.3 % (39.0-53.0) Mean Corpuscular Volume 92 fL (79-100) Mean Corpuscular Hemoglobin 31 pg (25-35) Mean Corpuscular Hemoglobin Concent 33 g/dL (31-37) Red Cell Distribution Width 14.0 % (11.5-14.5) Platelet Count 208 x10^3/uL (140-400) Neutrophils (%) (Auto) 78 % (31-73) Lymphocytes (%) (Auto) 11 % (24-48) Monocytes (%) (Auto) 10 % (0-9) Eosinophils (%) (Auto) 1 % (0-3) Basophils (%) (Auto) 0 % (0-3) Neutrophils # (Auto) 7.0 x10^3/uL (1.8-7.7) Lymphocytes # (Auto) 0.9 x10^3/uL (1.0-4.8) Monocytes # (Auto) 0.9 x10^3/uL (0.0-1.1) Eosinophils # (Auto) 0.1 x10^3/uL (0.0-0.7) Basophils # (Auto) 0.0 x10^3/uL (0.0-0.2) Sodium Level 140 mmol/L (136-145) Potassium Level 3.6 mmol/L (3.5-5.1) Chloride Level 105 mmol/L (98-107) Carbon Dioxide Level 28 mmol/L (21-32) Anion Gap 7 (6-14) Blood Urea Nitrogen 25 mg/dL (8-26) Creatinine 1.0 mg/dL (0.7-1.3) Estimated GFR (Cockcroft-Gault) 72.6 Glucose Level 118 mg/dL (70-99) Calcium Level 8.0 mg/dL (8.5-10.1) Medications Active Scripts Medications Dose Route/Sig Max Daily Dose Days Date Category Lisinopril 40 Mg Tablet 1 Tab PO DAILY 01/05/20 Reported Comments CXR 01/05 CHF Impression . 1. Acute hypoxemic hypercarbic respiratory failure, expected. multifactorial in etiology. 2. Abnormal chest x-ray.C/W CHF 3. Chronic obstructive pulmonary disease.could be severe 4. Obesity, probably obstructive sleep apnea-hypopnea syndrome. 5. Incarcerated ventral hernia, status post repair of incarcerated ventral hernia with mesh, postop day 1. 6. Hypertension. 7. Brief episode of atrial fibrillation with rapid ventricular response., V- tac, no furthwer arrythmias Plan . PLAN AND RECOMMENDATIONS: 1. Titrate FiO2 to keep O2 saturation 94%.nasal canula 2. s/p .IV lasix . mild improvemnt.repeat dose today 3. Continue bronchodilator 4. Inhaled corticosteroid. 5. Cardiologyrec 6. Elevate head of bed. 7. Heparin for DVT prophylaxis. 8. Pepcid for stress ulcer prophylaxis. 9. He will need sleep study as an outpatient. 10. He will need to quit smoking forever. 11. The findings and recommendations were discussed with RN 12. speech JOSH Urias MD Jan 07, 2020 10:58
[2020-01-07] MEDS ORDERED: FUROSEMIDE 40 MG/4 ML VIAL. IVP ONE (11:30)
--- NOTE | 2020-01-07 11:48 | PDOC ---
CHAU TRAVIS PROTEIN SPECIALIST 01/07/20 1148: CARDIO Progress Notes Date and Time Date of Service 01/07/2020 Time of Evaluation 1100 Subjective Subjective: No Chest Pain, No Palpitations, Other (SOA better) Vitals Vitals Vital Signs Date Time Temp Pulse Resp B/P (MAP) Pulse Ox O2 Delivery O2 Flow Rate FiO2 01/07/20 11:00 80 28 145/75 (98) Nasal Cannula 5.0 01/07/20 09:11 93 01/07/20 08:00 98.6 98.6 Weight Weight [ ] Input and Output Intake and Output Intake and Output 01/07/20 07:00 Intake Total 718 ml Output Total 4115 ml Balance -3397 ml Intake Oral 0 ml IV Total 718 ml Output Urine Total 2580 ml Gastric Drainage Total 1500 ml Drainage Total 35 ml Laboratory Labs Laboratory Tests Test 01/06/20 11:45 01/07/20 05:15 O2 Saturation 94 % (92-99) Arterial Blood pH 7.38 (7.35-7.45) Arterial Blood pCO2 at Patient Temp 34 mmHg (35-46) Arterial Blood pO2 at Patient Temp 74 mmHg (65-108) Arterial Blood HCO3 19 mmol/L (21-28) Arterial Blood Base Excess -5 mmol/L (-3-3) FiO2 45% ps 10 peep 5 White Blood Count 9.0 x10^3/uL (4.0-11.0) Red Blood Count 3.94 x10^6/uL (4.30-5.70) Hemoglobin 12.1 g/dL (13.0-17.5) Hematocrit 36.3 % (39.0-53.0) Mean Corpuscular Volume 92 fL (79-100) Mean Corpuscular Hemoglobin 31 pg (25-35) Mean Corpuscular Hemoglobin Concent 33 g/dL (31-37) Red Cell Distribution Width 14.0 % (11.5-14.5) Platelet Count 208 x10^3/uL (140-400) Neutrophils (%) (Auto) 78 % (31-73) Lymphocytes (%) (Auto) 11 % (24-48) Monocytes (%) (Auto) 10 % (0-9) Eosinophils (%) (Auto) 1 % (0-3) Basophils (%) (Auto) 0 % (0-3) Neutrophils # (Auto) 7.0 x10^3/uL (1.8-7.7) Lymphocytes # (Auto) 0.9 x10^3/uL (1.0-4.8) Monocytes # (Auto) 0.9 x10^3/uL (0.0-1.1) Eosinophils # (Auto) 0.1 x10^3/uL (0.0-0.7) Basophils # (Auto) 0.0 x10^3/uL (0.0-0.2) Sodium Level 140 mmol/L (136-145) Potassium Level 3.6 mmol/L (3.5-5.1) Chloride Level 105 mmol/L (98-107) Carbon Dioxide Level 28 mmol/L (21-32) Anion Gap 7 (6-14) Blood Urea Nitrogen 25 mg/dL (8-26) Creatinine 1.0 mg/dL (0.7-1.3) Estimated GFR (Cockcroft-Gault) 72.6 Glucose Level 118 mg/dL (70-99) Calcium Level 8.0 mg/dL (8.5-10.1) Physical Exam HEENT: Neck Supple W Full Motion Chest: Symmetric LUNGS: Other (diminished) Heart: RRR (SR), irregularly irregular (AFIB) Abdomen: Soft N/T, Other (S/P ventralhernia repair) Extremities: Other (trace Le edema) Neurology: alert, oriented, follow commands Assessment Assessment 1. AFIB RVR: new, RVR was refractory, Maintaining SR with amiodarone 2. Abdominal pain with incarcerated ventral hernia: S/P repair with mesh POD#4. pain controlled 3. Acute respiratory failure: pulmonary following. post extubation 4. HTN: controlled 5. NSVT: on 01/04/2020, none further. Maintaining SR. EF and WM nml with moderate RV dilation 6. Suspected TARIQ: 7. Acute diastolic CHF: better compensated, excellent diurese 8. Morbid obesity Recommendations 1. If passes swallow eval then will transition to PO metoprolol tartrate 25 mg po bid with 200 mg of amiodarone daily. 2. ASA for stroke prevention for now with recent abdominal surgery. MCOT as an oupt and noted AFIB burden and will reeval need for anticoagulation needs. 3. Follow up in office. 4. BIPAP PRN, Consider for outpt TARIQ w/u Justicifation of Admission Dx: Justifications for Admission: Justification of Admission Dx: Yes AAKASH GUTIERREZ MD 01/07/202037: CARDIO Progress Notes Assessment Assessment Patient seen and examined. Agree with SCHOOL BUS AIDE's assessment and plan. Maintaining SR with amiodarone Agree with event monitor as outpatient ARF s/p extubation, pulm team following Continue post op care per GS team CHAU TRAVIS APRN Jan 07, 2020 11:48 AAKASH GUTIERREZ MD Jan 07, 2020 20:38
--- NOTE | 2020-01-07 12:39 | PDOC ---
SURGICAL PROGRESS NOTE DATE: 01/07/20 TIME: 12:38 Subjective Patient doing quite well would like to have something to eat or drink minimal pain Vital Signs Vital Signs Date Time Temp Pulse Resp B/P (MAP) Pulse Ox O2 Delivery O2 Flow Rate FiO2 01/07/20 12:37 90 Nasal Cannula 5.0 01/07/20 12:00 99.2 74 27 155/79 (104) 99.2 I&O Intake and Output 01/07/20 07:00 Intake Total 718 ml Output Total 4115 ml Balance -3397 ml Intake Oral 0 ml IV Total 718 ml Output Urine Total 2580 ml Gastric Drainage Total 1500 ml Drainage Total 35 ml PATIENT HAS A LANCASTER: No General: Alert, Oriented X3, Cooperative, mild distress Abdomen: Normal bowel sounds, Soft, Other (Wounds clean dry and intact) Labs Laboratory Tests Test 01/06/20 00:33 01/06/20 04:40 01/06/20 08:20 01/06/20 11:45 Glucose (Fingerstick) 105 mg/dL (70-99) White Blood Count 11.0 x10^3/uL (4.0-11.0) Red Blood Count 3.91 x10^6/uL (4.30-5.70) Hemoglobin 12.1 g/dL (13.0-17.5) Hematocrit 36.2 % (39.0-53.0) Mean Corpuscular Volume 93 fL (79-100) Mean Corpuscular Hemoglobin 31 pg (25-35) Mean Corpuscular Hemoglobin Concent 33 g/dL (31-37) Red Cell Distribution Width 14.3 % (11.5-14.5) Platelet Count 194 x10^3/uL (140-400) Sodium Level 139 mmol/L (136-145) Potassium Level 4.0 mmol/L (3.5-5.1) Chloride Level 105 mmol/L (98-107) Carbon Dioxide Level 26 mmol/L (21-32) Anion Gap 8 (6-14) Blood Urea Nitrogen 31 mg/dL (8-26) Creatinine 1.3 mg/dL (0.7-1.3) Estimated GFR (Cockcroft-Gault) 53.7 Glucose Level 111 mg/dL (70-99) Calcium Level 7.6 mg/dL (8.5-10.1) Magnesium Level 2.4 mg/dL (1.8-2.4) Thyroid Stimulating Hormone (TSH) 0.339 uIU/mL (0.358-3.74) O2 Saturation 93 % (92-99) 94 % (92-99) Arterial Blood pH 7.37 (7.35-7.45) 7.38 (7.35-7.45) Arterial Blood pCO2 at Patient Temp 41 mmHg (35-46) 34 mmHg (35-46) Arterial Blood pO2 at Patient Temp 69 mmHg (65-108) 74 mmHg (65-108) Arterial Blood HCO3 23 mmol/L (21-28) 19 mmol/L (21-28) Arterial Blood Base Excess -2 mmol/L (-3-3) -5 mmol/L (-3-3) FiO2 45% ac 24, 550, 7 45% ps 10 peep 5 Test 01/07/20 05:15 White Blood Count 9.0 x10^3/uL (4.0-11.0) Red Blood Count 3.94 x10^6/uL (4.30-5.70) Hemoglobin 12.1 g/dL (13.0-17.5) Hematocrit 36.3 % (39.0-53.0) Mean Corpuscular Volume 92 fL (79-100) Mean Corpuscular Hemoglobin 31 pg (25-35) Mean Corpuscular Hemoglobin Concent 33 g/dL (31-37) Red Cell Distribution Width 14.0 % (11.5-14.5) Platelet Count 208 x10^3/uL (140-400) Neutrophils (%) (Auto) 78 % (31-73) Lymphocytes (%) (Auto) 11 % (24-48) Monocytes (%) (Auto) 10 % (0-9) Eosinophils (%) (Auto) 1 % (0-3) Basophils (%) (Auto) 0 % (0-3) Neutrophils # (Auto) 7.0 x10^3/uL (1.8-7.7) Lymphocytes # (Auto) 0.9 x10^3/uL (1.0-4.8) Monocytes # (Auto) 0.9 x10^3/uL (0.0-1.1) Eosinophils # (Auto) 0.1 x10^3/uL (0.0-0.7) Basophils # (Auto) 0.0 x10^3/uL (0.0-0.2) Sodium Level 140 mmol/L (136-145) Potassium Level 3.6 mmol/L (3.5-5.1) Chloride Level 105 mmol/L (98-107) Carbon Dioxide Level 28 mmol/L (21-32) Anion Gap 7 (6-14) Blood Urea Nitrogen 25 mg/dL (8-26) Creatinine 1.0 mg/dL (0.7-1.3) Estimated GFR (Cockcroft-Gault) 72.6 Glucose Level 118 mg/dL (70-99) Calcium Level 8.0 mg/dL (8.5-10.1) Laboratory Tests Test 01/07/20 05:15 White Blood Count 9.0 x10^3/uL (4.0-11.0) Red Blood Count 3.94 x10^6/uL (4.30-5.70) Hemoglobin 12.1 g/dL (13.0-17.5) Hematocrit 36.3 % (39.0-53.0) Mean Corpuscular Volume 92 fL (79-100) Mean Corpuscular Hemoglobin 31 pg (25-35) Mean Corpuscular Hemoglobin Concent 33 g/dL (31-37) Red Cell Distribution Width 14.0 % (11.5-14.5) Platelet Count 208 x10^3/uL (140-400) Neutrophils (%) (Auto) 78 % (31-73) Lymphocytes (%) (Auto) 11 % (24-48) Monocytes (%) (Auto) 10 % (0-9) Eosinophils (%) (Auto) 1 % (0-3) Basophils (%) (Auto) 0 % (0-3) Neutrophils # (Auto) 7.0 x10^3/uL (1.8-7.7) Lymphocytes # (Auto) 0.9 x10^3/uL (1.0-4.8) Monocytes # (Auto) 0.9 x10^3/uL (0.0-1.1) Eosinophils # (Auto) 0.1 x10^3/uL (0.0-0.7) Basophils # (Auto) 0.0 x10^3/uL (0.0-0.2) Sodium Level 140 mmol/L (136-145) Potassium Level 3.6 mmol/L (3.5-5.1) Chloride Level 105 mmol/L (98-107) Carbon Dioxide Level 28 mmol/L (21-32) Anion Gap 7 (6-14) Blood Urea Nitrogen 25 mg/dL (8-26) Creatinine 1.0 mg/dL (0.7-1.3) Estimated GFR (Cockcroft-Gault) 72.6 Glucose Level 118 mg/dL (70-99) Calcium Level 8.0 mg/dL (8.5-10.1) Assessment/Plan Status post umbilical hernia repair doing quite well from surgery passing flatus will advance diet to clear liquids Justicifation of Admission Dx: Justifications for Admission: Justification of Admission Dx: Yes ALLEGRA MCCULLOUGH MD Jan 07, 2020 12:39
--- NOTE | 2020-01-07 13:33 | NUR ---
Patient transferred to 203. Patient is stable upon transfer. Patients IV medications were restarted and oxygen applied at 6L. at bedside. Patient reports no complaints at this time. CARROT BUNCHER on CVC at bedside assisting patient. TAMMI Shaikh notified of patients arrival to unit.
[2020-01-07] MEDS ORDERED: ASPIRIN RECTAL 300 MG SUPP. PR ONE (17:00)
[2020-01-07] MEDS ORDERED: AMIODARONE 450 MG in IV DEXTROSE 5% 250 ML IV PRN ×2 (17:30→19:15)
[2020-01-07] MEDS: FAMOTIDINE 20 MG/2 ML VIAL IVP SCH (21:51)
[2020-01-08] VITALS (7 sets, daily range): BP systolic 128–178; BP diastolic 69–111
[2020-01-08] MEDS: IPRATRPIUM/ALBUTEROL 0.5/2.5MG 3 ML NEBU. NEB SCH ×5 (04:05→20:06)
[2020-01-08] MEDS: METOPROLOL TARTRATE 5 MG/5 ML VIAL. IVP SCH ×5 (05:47→20:13)
[2020-01-08] MEDS: HEPARIN for SUB-Q USE 5,000 UNIT/ML VIAL. SQ SCH ×3 (05:53→20:04)
[2020-01-08] MEDS: AMINO AC 3%/ELECTROLYTE/GLYCER 1,000 ML IV SCH ×2 (05:59→06:32)
[2020-01-08] MEDS: BUDESONIDE 0.5 MG/2 ML NEBU. NEB SCH ×2 (07:23→20:06)
[2020-01-08] MEDS: NICOTINE 21MG PATCH. TD SCH (08:57)
[2020-01-08] MEDS: NYSTATIN TOPICAL POWDER 15GM BOTTLE. TP SCH ×2 (09:00→20:05)
--- NOTE | 2020-01-08 10:15 | PDOC ---
VI[facility] NURSE MANAGER 01/08/20 1015: SURGICAL PROGRESS NOTE DATE: 01/08/20 TIME: 10:13 Subjective upset npo, failed swallow can not sleep pain managed Vital Signs Vital Signs Date Time Temp Pulse Resp B/P (MAP) Pulse Ox O2 Delivery O2 Flow Rate FiO2 01/08/20 07:27 95 Nasal Cannula 5.0 01/08/20 07:00 97.9 80 20 151/90 (110) 97.9 I&O Intake and Output 01/08/20 07:00 Intake Total 0 ml Output Total 3380 ml Balance -3380 ml Intake Oral 0 ml Output Urine Total 3380 ml General: Alert, Oriented X3, Cooperative Abdomen: Soft, Other (sitting up, binder in place, drain serosang) Labs Laboratory Tests Test 01/06/20 11:45 01/07/20 05:15 O2 Saturation 94 % (92-99) Arterial Blood pH 7.38 (7.35-7.45) Arterial Blood pCO2 at Patient Temp 34 mmHg (35-46) Arterial Blood pO2 at Patient Temp 74 mmHg (65-108) Arterial Blood HCO3 19 mmol/L (21-28) Arterial Blood Base Excess -5 mmol/L (-3-3) FiO2 45% ps 10 peep 5 White Blood Count 9.0 x10^3/uL (4.0-11.0) Red Blood Count 3.94 x10^6/uL (4.30-5.70) Hemoglobin 12.1 g/dL (13.0-17.5) Hematocrit 36.3 % (39.0-53.0) Mean Corpuscular Volume 92 fL (79-100) Mean Corpuscular Hemoglobin 31 pg (25-35) Mean Corpuscular Hemoglobin Concent 33 g/dL (31-37) Red Cell Distribution Width 14.0 % (11.5-14.5) Platelet Count 208 x10^3/uL (140-400) Neutrophils (%) (Auto) 78 % (31-73) Lymphocytes (%) (Auto) 11 % (24-48) Monocytes (%) (Auto) 10 % (0-9) Eosinophils (%) (Auto) 1 % (0-3) Basophils (%) (Auto) 0 % (0-3) Neutrophils # (Auto) 7.0 x10^3/uL (1.8-7.7) Lymphocytes # (Auto) 0.9 x10^3/uL (1.0-4.8) Monocytes # (Auto) 0.9 x10^3/uL (0.0-1.1) Eosinophils # (Auto) 0.1 x10^3/uL (0.0-0.7) Basophils # (Auto) 0.0 x10^3/uL (0.0-0.2) Sodium Level 140 mmol/L (136-145) Potassium Level 3.6 mmol/L (3.5-5.1) Chloride Level 105 mmol/L (98-107) Carbon Dioxide Level 28 mmol/L (21-32) Anion Gap 7 (6-14) Blood Urea Nitrogen 25 mg/dL (8-26) Creatinine 1.0 mg/dL (0.7-1.3) Estimated GFR (Cockcroft-Gault) 72.6 Glucose Level 118 mg/dL (70-99) Calcium Level 8.0 mg/dL (8.5-10.1) Assessment/Plan s/p VIH clears once passes swallow Justicifation of Admission Dx: Justifications for Admission: Justification of Admission Dx: Yes LESTER PITT MD 01/08/20 1137: SURGICAL PROGRESS NOTE Assessment/Plan agree with above VI[facility] MILIAN NURSE MANAGER Jan 08, 2020 10:15 LESTER PITT MD Jan 08, 2020 11:37
[2020-01-08] MEDS ORDERED: diphenhydrAMINE ORAL ELIXIR 12.5 MG/5 ML ML PO PRN (10:30)
[2020-01-08] MEDS ORDERED: BISACODYL 10 MG SUPP.RECT. PR ONE (10:45)
--- NOTE | 2020-01-08 10:46 | PDOC ---
PULMONARY PROGRESS NOTES DATE: 01/08/20 TIME: 10:43 Subjective remains on N/C oxygen, reports he is not sleeping well Failed swallow test on 01/07/2020 Vitals Vital Signs Date Time Temp Pulse Resp B/P (MAP) Pulse Ox O2 Delivery O2 Flow Rate FiO2 01/08/20 07:27 95 Nasal Cannula 5.0 01/08/20 07:00 97.9 80 20 151/90 (110) 97.9 ROS: No Nausea, No Chest Pain, No Abdominal Pain, No Increase Cough General: Alert, No acute distress Lungs: Other (decrease bs) Cardiovascular: S1 Abdomen: Soft, Other (obese,drain in place) Neuro Exam: Alert Extremities: Other (1=edema) Skin: Warm, Dry Labs Laboratory Tests Test 01/06/20 11:45 01/07/20 05:15 O2 Saturation 94 % (92-99) Arterial Blood pH 7.38 (7.35-7.45) Arterial Blood pCO2 at Patient Temp 34 mmHg (35-46) Arterial Blood pO2 at Patient Temp 74 mmHg (65-108) Arterial Blood HCO3 19 mmol/L (21-28) Arterial Blood Base Excess -5 mmol/L (-3-3) FiO2 45% ps 10 peep 5 White Blood Count 9.0 x10^3/uL (4.0-11.0) Red Blood Count 3.94 x10^6/uL (4.30-5.70) Hemoglobin 12.1 g/dL (13.0-17.5) Hematocrit 36.3 % (39.0-53.0) Mean Corpuscular Volume 92 fL (79-100) Mean Corpuscular Hemoglobin 31 pg (25-35) Mean Corpuscular Hemoglobin Concent 33 g/dL (31-37) Red Cell Distribution Width 14.0 % (11.5-14.5) Platelet Count 208 x10^3/uL (140-400) Neutrophils (%) (Auto) 78 % (31-73) Lymphocytes (%) (Auto) 11 % (24-48) Monocytes (%) (Auto) 10 % (0-9) Eosinophils (%) (Auto) 1 % (0-3) Basophils (%) (Auto) 0 % (0-3) Neutrophils # (Auto) 7.0 x10^3/uL (1.8-7.7) Lymphocytes # (Auto) 0.9 x10^3/uL (1.0-4.8) Monocytes # (Auto) 0.9 x10^3/uL (0.0-1.1) Eosinophils # (Auto) 0.1 x10^3/uL (0.0-0.7) Basophils # (Auto) 0.0 x10^3/uL (0.0-0.2) Sodium Level 140 mmol/L (136-145) Potassium Level 3.6 mmol/L (3.5-5.1) Chloride Level 105 mmol/L (98-107) Carbon Dioxide Level 28 mmol/L (21-32) Anion Gap 7 (6-14) Blood Urea Nitrogen 25 mg/dL (8-26) Creatinine 1.0 mg/dL (0.7-1.3) Estimated GFR (Cockcroft-Gault) 72.6 Glucose Level 118 mg/dL (70-99) Calcium Level 8.0 mg/dL (8.5-10.1) Medications Active Scripts Medications Dose Route/Sig Max Daily Dose Days Date Category Lisinopril 40 Mg Tablet 1 Tab PO DAILY 01/05/20 Reported Comments CXR 01/05 CHF Impression . 1. Acute hypoxemic hypercarbic respiratory failure, expected. multifactorial in etiology.--improved 2. Abnormal chest x-ray.C/W CHF 3. Chronic obstructive pulmonary disease.could be severe 4. Obesity, probably obstructive sleep apnea-hypopnea syndrome. 5. Incarcerated ventral hernia, status post repair of incarcerated ventral hernia with mesh, 6. Hypertension. 7. Brief episode of atrial fibrillation with rapid ventricular response., V- tac, no furthwer arrythmias 8. dysphasia 9. insomnia Plan . PLAN AND RECOMMENDATIONS: 1. Titrate FiO2 to keep O2 saturation 94%.nasal canula 2. lasix PRN 3. Continue bronchodilator 4. Inhaled corticosteroid. 5. Follow Cardiology rec 6. Elevate head of bed. 7. Heparin for DVT prophylaxis. 8. Pepcid for stress ulcer prophylaxis. 9. Will need outpatient sleep study 10. Cont. ST and follow recs, currently NPO, continue PPN for nutritional support D/W RN and Pt. and Family JOSH ESPINAL MD Jan 08, 2020 10:46
--- NOTE | 2020-01-08 11:25 | NUR ---
SS following up with discharge planning. SS reviewed pt chart and discussed with pt RN. Pt COVID19 negative. PT/OT recommended halfway unit. Pt's family wanting pt to go to [facility], ; fax [phone]. Pt currently on clear liquid diet and PPN. Pt on Amiodarone drip. SS spoke with [facility] and [facility] requested SS resend referral when medically ready. SS will continue to follow for discharge planning.
--- NOTE | 2020-01-08 11:45 | PDOC ---
[employer] PROGRESS NOTE Date of Service DOS: DATE: 01/08/20 TIME: 11:34 Chief Complaint Chief Complaint A/P: Incarcerated ventral hernia - NPO, Pulled NGT multiple times. To OR ?Atrial fibrillation with RVR - no EKG available. Off cardizem. NSR on EKG here. Will consult cardiology for this. Cont telemetry SHAQ - likely vasomotor nephropathy. No known renal history. Will hydrate as well. Thrombocytosis - likely from TARIQ undiagnosed, likely cause of inability to extubate COPD - pulm consulted post-op for failure to extubate. Duonebs q4hrs and pulmicort Obesity - counseled on weight loss, likely has TARIQ or OHS Smoker - counseled on cessation Hypercapnic respiratory failure - likely 2/2 undiagnosed TARIQ/OHS and underlying COPD. Pulm consulted. Vent wean daily FEN - NPO PPX - heparin FULL CODE Dispo - ICU for post op monitoring CC time 47 minutes History of Present Illness History of Present Illness 01/08/20 Patient seen and examined in Cardiovascular floor Chart reviewed Discussed with RN Discussed with family Patient was talking today and trying to sit up on the edge of the bed 01/07/20 Patient seen and examined in ICU Chart reviewed Discussed with RN Patient has been extubated Patient was able to follow command 01/06/20 Patient seen and examined in ICU Chart reviewed Discussed with RN Discussed with patient's family OG to suction AC/24/550/45% PEEP: 7 01/05/20 Patient seen and examined in ICU Discussed with RN Discussed with , she requested a nicotine patch for patient Maddox to bedside AC/24/550/45% Mr Ortega is a 74 year old male w/ PMHx OA, COPD, smoker who presented via private vehicle to [facility] ED with abdominal pain with vomiting. CT abdomen pelvis was ordered and did show an incarcerated hernia with obstruction. Upon NGT placement on telemetry was noted with atrial fibrillation with RVR. He was started on diltiazem and transferred to [facility]. Initially seen on cardiovascular floor. Labs significant for WBC 9.6, Hb 17, platelets 324, NA 136, K3.9, BUN 383, CR 2.1, glucose 121, lactate 2.3, troponin negative. INR 1.2 EKG performed here is normal sinus rhythm with no ST segment changes. To the OR for hernia reduction, actually was reducible in the OR physically, mesh placed on 01/03/20 Postoperatively unable to extubate due to significant hypercapnia found with ABG is 7.17, 69.5, 199.7. Seen in ICU on ventilator. When sedation was weaned he was very panicked. CXR with bibasilar atelectasis. On AC mode rate of 16, TV 550, FiO2 60%, PEEP 7 ABG 7.34/42/103 on this. Cr down to 1.2 Plan: Cont vent in ICU Vitals/I&O Vitals/I&O: Vital Signs Date Time Temp Pulse Resp B/P (MAP) Pulse Ox O2 Delivery O2 Flow Rate FiO2 01/08/20 11:21 Nasal Cannula 5.0 01/08/20 11:00 97.9 73 20 177/90 (119) 92 97.9 I & O 01/07/20 01/07/20 01/08/20 15:00 23:00 07:00 Intake Total 0 ml Output Total 730 ml 1850 ml 800 ml Balance -730 ml -1850 ml -800 ml Physical Exam General: Alert, Oriented X3, Cooperative Heart: Regular rate, No murmurs Lungs: Other (decrease bs) Abdomen: Soft, Other (sitting up, binder in place, drain serosang) Extremities: No edema Skin: No rashes, No breakdown, No significant lesion Assessment and Plan Assessmemt and Plan Assessment: Incarcerated ventral hernia - NPO, Pulled NGT multiple times. To OR Atrial fibrillation with RVR - no EKG available. Off cardizem. NSR on EKG here. Will consult cardiology for this. Cont telemetry SHAQ - likely vasomotor nephropathy. No known renal history. Will hydrate as well. Thrombocytosis - likely from TARIQ undiagnosed, likely cause of inability to extubate COPD - pulm consulted post-op for failure to extubate. Duonebs q4hrs and pulmicort Obesity - counseled on weight loss, likely has TARIQ or OHS Smoker - counseled on cessation Hypercapnic respiratory failure - likely 2/2 undiagnosed TARIQ/OHS and underlying COPD. Pulm consulted. Vent wean daily Plan: Cardiac monitoring DVT prophylaxis Benadryl to help sleep at night Suppository Wound care Full code Appreciate subspecialist input Comment Review of Relevant I have reviewed the following items quyen (where applicable) has been applied. Medications: Current Medications Medications (Trade) Dose Ordered Sig/Timur Route PRN Reason Start Time Stop Time Status Last Admin Dose Admin Amiodarone HCl 450 mg/Dextrose 259 ml @ 0 mls/hr CONT PRN IV SEE I/O RECORD 01/07/20 17:30 01/07/20 18:01 DC 01/07/20 18:01 Amiodarone HCl 450 mg/Dextrose 259 ml @ 0 mls/hr CONT PRN IV SEE I/O RECORD 01/07/20 19:15 01/08/20 09:35 Justicifation of Admission Dx: Justifications for Admission: Justification of Admission Dx: Yes LISE SCHROEDER III DO Jan 08, 2020 11:45
[2020-01-08] MEDS ORDERED: BISACODYL 5 MG TABLET.DR. PO PRN (14:00)
[2020-01-08] MEDS: AMIODARONE HCL 200 MG TABLET. PO SCH (16:23)
--- NOTE | 2020-01-08 16:39 | PDOC ---
PROGRESS NOTES Date of Service: DATE: 01/08/20 TIME: 16:39 Subjective Subjective Feeling better, tolerating PO Objective Objective Vital Signs Date Time Temp Pulse Resp B/P (MAP) Pulse Ox O2 Delivery O2 Flow Rate FiO2 01/08/20 16:23 78 162/84 01/08/20 15:17 Nasal Cannula 5.0 01/08/20 14:56 97.9 20 92 97.9 Intake and Output 01/08/20 07:00 Intake Total 0 ml Output Total 3380 ml Balance -3380 ml Intake Oral 0 ml Output Urine Total 3380 ml Physical Exam Abdomen: Soft, Other (sitting up, binder in place, drain serosang) Heart: Regular rate, No murmurs Extremities: No edema General: Alert, Oriented X3, Cooperative HEENT: Atraumatic Lungs: Other (Decreased air entry bases) Neuro: Normal speech, Strength at 5/5 X4 ext, Normal tone, Sensation intact, Cranial nerves 3-12 NL, Reflexes 2+ Psych/Mental Status: Mental status NL, Mood NL Skin: No rashes, No breakdown, No significant lesion Assessment Assessment 1. AFIB RVR: new, RVR was refractory, Maintaining SR with amiodarone gtt - change to PO 2. Abdominal pain with incarcerated ventral hernia: S/P repair with mesh. pain controlled 3. Acute respiratory failure: pulmonary following. post extubation 4. HTN: controlled 5. NSVT: on 01/04/2020, none further. Maintaining SR. EF and WM nml with moderate RV dilation 6. Suspected TARIQ: 7. Acute diastolic CHF: better compensated with diuresis 8. Morbid obesity Follow up with our office in one month Comment Review of Relevant I have reviewed the following items quyen (where applicable) has been applied. Medications Current Medications Amiodarone HCl (Cordarone) 200 mg DAILY PO Last administered on 01/08/20at 16:23; Start 01/08/20 at 16:00 Amiodarone HCl 450 mg/Dextrose 259 ml @ 0 mls/hr CONT PRN IV SEE I/O RECORD Last administered on 01/07/20at 18:01; Start 01/07/20 at 17:30; Stop 01/07/20 at 18:01; Status DC Amiodarone HCl 450 mg/Dextrose 259 ml @ 0 mls/hr CONT PRN IV SEE I/O RECORD Last administered on 01/08/20at 09:35; Start 01/07/20 at 19:15; Stop 01/08/20 at 16:19; Status DC Aspirin (Aspirin Rectal Supp) 300 mg 1X ONCE [place] ; Start 01/07/20 at 17:00; Stop 01/07/20 at 17:01; Status DC Bisacodyl (Dulcolax Supp) 10 mg 1X ONCE [place] ; Start 01/08/20 at 10:45; Stop 12/26 08/14 at 13:58; Status DC Bisacodyl (Dulcolax Tab) 10 mg PRN DAILY PRN PO CONSTIPATION; Start 01/08/20 at 14:00 Diphenhydramine HCl (Benadryl Oral Elixir) 12.5 mg PRN QHS PRN PO INSOMNIA; Start 01/08/20 at 10:30 Famotidine (Pepcid) 20 mg QHS PO ; Start 01/08/20 at 21:00 Metoprolol Tartrate (Lopressor) 25 mg BID PO ; Start 01/08/20 at 21:00 Vitals/I & O Vital Sign - Last 24 Hours 01/07/20 01/07/20 01/07/20 01/07/20 17:06 19:00 19:46 19:46 Temp 98.3 98.3 Pulse 85 86 Resp 22 B/P (MAP) 162/91 164/83 (110) Pulse Ox 94 96 96 O2 Delivery Nasal Cannula Nasal Cannula Nasal Cannula O2 Flow Rate 6.0 5.0 5.0 01/07/20 01/07/20 01/07/20 01/08/20 20:00 22:58 23:45 00:00 Temp 98.1 98.1 Pulse 87 70 Resp 21 B/P (MAP) 156/130 (139) 124/70 Pulse Ox 96 96 O2 Delivery Nasal Cannula Nasal Cannula Nasal Cannula O2 Flow Rate 6.0 6.0 5.0 01/08/20 01/08/20 01/08/20 01/08/20 03:08 04:06 05:47 07:00 Temp 98.0 97.9 98.0 97.9 Pulse 83 83 80 Resp 22 20 B/P (MAP) 144/74 (97) 144/74 151/90 (110) Pulse Ox 97 96 92 O2 Delivery Nasal Cannula Nasal Cannula Nasal Cannula O2 Flow Rate 6.0 5.0 6.0 01/08/20 01/08/20 01/08/20 01/08/20 07:26 07:27 07:30 07:30 Pulse Ox 95 95 O2 Delivery Nasal Cannula Nasal Cannula Nasal Cannula O2 Flow Rate 5.0 5.0 5.0 5.0 01/08/20 01/08/20 01/08/20 01/08/20 11:00 11:21 13:07 14:56 Temp 97.9 97.9 97.9 97.9 Pulse 73 73 73 Resp 20 20 B/P (MAP) 177/90 (119) 177/90 177/90 (119) Pulse Ox 92 92 O2 Delivery Nasal Cannula Nasal Cannula Nasal Cannula O2 Flow Rate 6.0 5.0 6.0 01/08/20 01/08/20 15:17 16:23 Pulse 78 B/P (MAP) 162/84 O2 Delivery Nasal Cannula O2 Flow Rate 5.0 Intake and Output 01/07/20 01/07/20 01/08/20 15:00 23:00 07:00 Intake Total 0 ml Output Total 730 ml 1850 ml 800 ml Balance -730 ml -1850 ml -800 ml AAKASH GUTIERREZ MD Jan 08, 2020 16:39
[2020-01-08] MEDS: METOPROLOL TART IMMED RELEASE 25 MG TABLET. PO SCH (19:58)
[2020-01-08] MEDS ORDERED: FAMOTIDINE 20 MG TABLET. PO SCH (21:00)
[2020-01-09] MEDS: IPRATRPIUM/ALBUTEROL 0.5/2.5MG 3 ML NEBU. NEB SCH ×4 (02:50→11:31)
[2020-01-09 03:00] VITALS: BP 161/84
[2020-01-09] MEDS: HEPARIN for SUB-Q USE 5,000 UNIT/ML VIAL. SQ SCH (05:44)
[2020-01-09 07:00] VITALS: BP 161/86
[2020-01-09] MEDS: BUDESONIDE 0.5 MG/2 ML NEBU. NEB SCH (07:37)
[2020-01-09] MEDS: METOPROLOL TART IMMED RELEASE 25 MG TABLET. PO SCH (08:28)
[2020-01-09] MEDS: AMIODARONE HCL 200 MG TABLET. PO SCH (08:28)
[2020-01-09] MEDS: NICOTINE 21MG PATCH. TD SCH (08:29)
[2020-01-09] MEDS ORDERED: ASPIRIN CHEWABLE 81 MG TABLET. PO SCH (09:00)
[2020-01-09] MEDS: NYSTATIN TOPICAL POWDER 15GM BOTTLE. TP SCH (09:00)
[2020-01-09] MEDS ORDERED: LISINOPRIL 20 MG TABLET PO SCH (09:00)
[2020-01-09] MEDS ORDERED: CITALOPRAM 20 MG TABLET. PO SCH (09:00)
[2020-01-09] MEDS ORDERED: oxyCODONE/APAP 5/325 1 TAB TABLET PO PRN (09:15)
--- NOTE | 2020-01-09 10:20 | NUR ---
SS following up with discharge planning. SS reviewed pt chart and discussed with pt RN. Pt is currently requiring oxygen. Pt on GI soft diet. and PO medications. SS phoned and faxed clinical to [facility], ; fax [phone]. Pt accepted at [facility] and bed available today. SS currently awaiting discharge orders from Dr. Parson. SS will continue to follow for discharge planning.
--- NOTE | 2020-01-09 10:37 | PDOC ---
PULMONARY PROGRESS NOTES DATE: 01/09/20 TIME: 10:35 Subjective remains on 5 liters N/C oxygen, Feeling much better today Vitals Vital Signs Date Time Temp Pulse Resp B/P (MAP) Pulse Ox O2 Delivery O2 Flow Rate FiO2 01/09/20 09:32 94 Nasal Cannula 5.0 01/09/20 09:31 89 161/86 01/09/20 07:00 97.9 23 97.9 ROS: No Nausea, No Chest Pain, No Abdominal Pain, No Increase Cough General: Alert, No acute distress Lungs: Other (decrease bs) Cardiovascular: S1 Abdomen: Soft, Other (obese,drain in place) Neuro Exam: Alert Extremities: Other (1=edema) Skin: Warm, Dry Medications Active Scripts Medications Dose Route/Sig Max Daily Dose Days Date Category Lisinopril 40 Mg Tablet 1 Tab PO DAILY 01/05/20 Reported Comments CXR 01/05 CHF Impression . 1. Acute hypoxemic hypercarbic respiratory failure, expected. multifactorial in etiology.--improved 2. Abnormal chest x-ray.C/W CHF 3. Chronic obstructive pulmonary disease.could be severe 4. Obesity, probably obstructive sleep apnea-hypopnea syndrome. 5. Incarcerated ventral hernia, status post repair of incarcerated ventral hernia with mesh, 6. Hypertension-- ongoing 7. Brief episode of atrial fibrillation with rapid ventricular response., V- tac, no furthwer arrythmias 8. dysphasia-- improved 9. insomnia-- improved Plan . PLAN AND RECOMMENDATIONS: 1. Titrate FiO2 to keep O2 saturation 94%.nasal canula, currently on 5 liters N/C 2. Lasix PRN 3. Continue bronchodilator 4. Inhaled corticosteroid. 5. Follow Cardiology rec 6. Elevate head of bed. 7. Heparin for DVT prophylaxis. 8. Pepcid for stress ulcer prophylaxis. 9. Will need outpatient sleep study 10. Cont. ST and follow recs, cont. PPN untill po intake is adequate 11. Pt. will need 6 min walk prior to D/C D/W RN and Pt. and Family JOSH ESPINAL MD Jan 09, 2020 10:37
[2020-01-09] MEDS ORDERED: IPRA3AMP29 NEB (10:44)
[2020-01-09] MEDS ORDERED: ACET650S GT (10:44)
[2020-01-09] MEDS ORDERED: BUDE0.5A NEB (10:44)
[2020-01-09] MEDS ORDERED: Nicotine 21MG TD (10:44)
[2020-01-09] MEDS ORDERED: AMIO200T7 PO (10:44)
[2020-01-09] MEDS ORDERED: FAMO20TA5 PO (10:44)
[2020-01-09] MEDS ORDERED: METO25TA4 PO (10:44)
[2020-01-09] MEDS ORDERED: BISA5TAB4 PO (10:44)
--- NOTE | 2020-01-09 10:45 | SNU/HH DC ---
DISCHARGE ORDERS DISCHARGE INFORMATION: CONDITION ON DISCHARGE: Stable CODE STATUS: Code Status: Full CORRECTION: SNF STAY <30 DAYS: Yes HOSPICE: HOSPICE: No HOSPICE EVAL & TREAT: No LTAC: ADMIT TO LTAC: No POST DISCHARGE ORDERS: DIET AFTER DISCHARGE: Cardiac TREATMENT/EQUIPMENT ORDERS: Physical Therapy For: Evalulation/Treatment Occupational Therapy For: Evaluation/Treatment Speech Language Pathology For: Evaluation/Treatment DISCHARGE MEDICATIONS: Home Meds Reported Medications Citalopram Hydrobromide (CITALOPRAM HBR) 40 Mg Tablet, 1 TAB PO DAILY for anxiety, #90 TAB 1 Refill 01/05/20 Aspirin (Children's Aspirin) 81 Mg Tab.chew, 81 MG PO DAILY for antiplatelet, TAB.CHEW 01/05/20 Lisinopril (LISINOPRIL) 40 Mg Tablet, 1 TAB PO DAILY for BP, #30 TAB 5 Refills 01/05/20 LISE SCHROEDER III DO Jan 09, 2020 10:45
--- NOTE | 2020-01-09 10:52 | PDOC ---
[employer] PROGRESS NOTE Date of Service DOS: DATE: 01/09/20 TIME: 10:48 Chief Complaint Chief Complaint A/P: Incarcerated ventral hernia - NPO, Pulled NGT multiple times. To OR ?Atrial fibrillation with RVR - no EKG available. Off cardizem. NSR on EKG here. Will consult cardiology for this. Cont telemetry SHAQ - likely vasomotor nephropathy. No known renal history. Will hydrate as well. Thrombocytosis - likely from TARIQ undiagnosed, likely cause of inability to extubate COPD - pulm consulted post-op for failure to extubate. Duonebs q4hrs and pulmicort Obesity - counseled on weight loss, likely has TARIQ or OHS Smoker - counseled on cessation Hypercapnic respiratory failure - likely 2/2 undiagnosed TARIQ/OHS and underlying COPD. Pulm consulted. Vent wean daily FEN - NPO PPX - heparin FULL CODE Dispo - ICU for post op monitoring CC time 47 minutes History of Present Illness History of Present Illness 01/09/20 Patient seen and examined in Cardiovascular floor Chart reviewed Discussed with RN 01/08/20 Patient seen and examined in Cardiovascular floor Chart reviewed Discussed with RN Discussed with family Patient was talking today and trying to sit up on the edge of the bed 01/07/20 Patient seen and examined in ICU Chart reviewed Discussed with RN Patient has been extubated Patient was able to follow command 01/06/20 Patient seen and examined in ICU Chart reviewed Discussed with RN Discussed with patient's family OG to suction AC/24/550/45% PEEP: 7 01/05/20 Patient seen and examined in ICU Discussed with RN Discussed with , she requested a nicotine patch for patient Maddox to bedside AC/24/550/45% Mr Ortega is a 74 year old male w/ PMHx OA, COPD, smoker who presented via private vehicle to [place] ED with abdominal pain with vomiting. CT abdomen pelvis was ordered and did show an incarcerated hernia with obstruction. Upon NGT placement on telemetry was noted with atrial fibrillation with RVR. He was started on diltiazem and transferred to [facility]. Initially seen on cardiovascular floor. Labs significant for WBC 9.6, Hb 17, platelets 324, NA 136, K3.9, BUN 383, CR 2.1, glucose 121, lactate 2.3, troponin negative. INR 1.2 EKG performed here is normal sinus rhythm with no ST segment changes. To the OR for hernia reduction, actually was reducible in the OR physically, mesh placed on 01/03/20 Postoperatively unable to extubate due to significant hypercapnia found with ABG is 7.17, 69.5, 199.7. Seen in ICU on ventilator. When sedation was weaned he was very panicked. CXR with bibasilar atelectasis. On AC mode rate of 16, TV 550, FiO2 60%, PEEP 7 ABG 7.34/42/103 on this. Cr down to 1.2 Plan: Cont vent in ICU Vitals/I&O Vitals/I&O: Vital Signs Date Time Temp Pulse Resp B/P (MAP) Pulse Ox O2 Delivery O2 Flow Rate FiO2 01/09/20 09:32 94 Nasal Cannula 5.0 01/09/20 09:31 89 161/86 01/09/20 07:00 97.9 23 97.9 I & O 01/08/20 01/08/20 01/09/20 15:00 23:00 07:00 Intake Total 300 ml 350 ml 100 ml Output Total 930 ml 900 ml Balance 300 ml -580 ml -800 ml Physical Exam General: Alert, Oriented X3, Cooperative Heart: Regular rate, No murmurs Lungs: Other (decrease bs) Abdomen: Soft, Other (sitting up, binder in place, drain serosang) Extremities: No edema Skin: No rashes, No breakdown, No significant lesion Assessment and Plan Assessmemt and Plan Assessment: Incarcerated ventral hernia - NPO, Pulled NGT multiple times. To OR ?Atrial fibrillation with RVR - no EKG available. Off cardizem. NSR on EKG here. Will consult cardiology for this. Cont telemetry SHAQ - likely vasomotor nephropathy. No known renal history. Will hydrate as well. Thrombocytosis - likely from TARIQ undiagnosed, likely cause of inability to extubate COPD - pulm consulted post-op for failure to extubate. Duonebs q4hrs and pulm icort Obesity - counseled on weight loss, likely has TARIQ or OHS Smoker - counseled on cessation Hypercapnic respiratory failure - likely 2/2 undiagnosed TARIQ/OHS and underlying COPD. Pulm consulted. Vent wean daily Plan: Cardiac monitoring Full code Home meds Probable discharge to [facility] DVT prophylaxis Appreciate subspecialist input Comment Review of Relevant I have reviewed the following items quyen (where applicable) has been applied. Medications: Current Medications Medications (Trade) Dose Ordered Sig/Timur Route PRN Reason Start Time Stop Time Status Last Admin Dose Admin Bisacodyl (Dulcolax Tab) 10 mg PRN DAILY PRN PO CONSTIPATION 01/08/20 14:00 01/09/20 09:30 Metoprolol Tartrate (Lopressor) 25 mg BID PO 01/08/20 21:00 01/09/20 08:28 Amiodarone HCl (Cordarone) 200 mg DAILY PO 01/08/20 16:00 01/09/20 08:28 Famotidine (Pepcid) 20 mg QHS PO 01/08/20 21:00 01/08/20 19:58 Aspirin (Aspirin Chewable) 81 mg DAILY PO 01/09/20 09:00 01/09/20 09:31 Lisinopril (Prinivil) 40 mg DAILY PO 01/09/20 09:00 01/09/20 09:31 Citalopram Hydrobromide (CeleXA) 40 mg DAILY PO 01/09/20 09:00 01/09/20 09:30 Oxycodone/ Acetaminophen (Percocet 5/325) 1 tab PRN Q4HRS PRN PO MODERATE TO SEVERE PAIN 01/09/20 09:15 01/09/20 09:32 Justicifation of Admission Dx: Justifications for Admission: Justification of Admission Dx: Yes LISE SCHROEDER III DO Jan 09, 2020 10:52
--- NOTE | 2020-01-09 10:54 | PDOC ---
VIET MILIAN APRN 01/09/20 1054: SURGICAL PROGRESS NOTE DATE: 01/09/20 TIME: 10:52 Subjective feeling better eating minimal pain Vital Signs Vital Signs Date Time Temp Pulse Resp B/P (MAP) Pulse Ox O2 Delivery O2 Flow Rate FiO2 01/09/20 09:32 94 Nasal Cannula 5.0 01/09/20 09:31 89 161/86 01/09/20 07:00 97.9 23 97.9 I&O Intake and Output 01/09/20 07:00 Intake Total 750 ml Output Total 1830 ml Balance -1080 ml Intake Oral 750 ml Output Urine Total 1800 ml Drainage Total 30 ml General: Alert, Oriented X3, Cooperative Abdomen: Soft, Other (lb serosang, incision c/d/i, no erythema ) Problem List s/p VIH stable surgically Justicifation of Admission Dx: Justifications for Admission: Justification of Admission Dx: Yes ALLEGRA MCCULLOUGH MD 01/09/20 1139: SURGICAL PROGRESS NOTE Assessment/Plan Agree with Yonathan assessment and plan VIET MILIAN APRN Jan 09, 2020 10:54 ALLEGRA MCCULLOUGH MD Jan 09, 2020 11:39
[2020-01-09 11:00] VITALS: BP 159/111
--- NOTE | 2020-01-09 12:47 | NUR ---
SS following up with discharge planning. [place] contacted SS and reported that pt's insurance informed that they are not in network. SS met with pt and pt's spouse and discussed. Pt's spouse agreeable to try [facility] or [facility], ; . SS phoned and faxed referral to [facility] and [facility]. SS will await acceptance decision and insurance determination and will proceed accordingly with discharge planning.
--- NOTE | 2020-01-09 13:50 | NUR ---
SS following up with discharge planning. [facility] accepted pt. Discharge orders phoned and faxed to [facility], ; fax [phone]. Pt will discharge today and go to [facility] at [address] [facility] transport. Pt and pt's spouse notified.
--- NOTE | 2020-01-09 16:53 | NUR ---
Discharge Note: MACO VILLARREAL Discharge instructions and discharge home medications reviewed with Patient and a copy given. All questions have been answered and understanding verbalized. The following instructions and handouts were given: pt packet given to facility. Discontinued lines and drains: peripheral IV, pineda catheter, and JOSE drain discontinued. Patient discharged to care home facility via wheelchair by transport.
--- NOTE | 2020-01-30 11:47 | DS ---
DATE OF DISCHARGE: 01/09/2020 ADMISSION DIAGNOSES: Incarcerated ventral hernia, atrial fibrillation, acute kidney injury, thrombocytosis, chronic obstructive pulmonary disease, obesity, tobacco abuse, and hypercapnic respiratory failure. DISCHARGE DIAGNOSIS: Postop repair of incarcerated ventral hernia. CONSULTS: Fernando Rai MD; Marty Steve MD; and Joselito Mccrary MD PROCEDURES: As above. HOSPITAL COURSE: The patient is a pleasant middle-aged male, who presented with an incarcerated ventral hernia. He was admitted. We consulted General Surgery. He was taken for repair of his ventral hernia with mesh. Post-procedure, he did well. We did wound care and physical therapy/occupational therapy and discharged to residential at [facility]. DISPOSITION: To residential. ACTIVITY: As tolerated. DIET: Low sodium. MEDICATIONS: Please see the MRAD. TOTAL TIME: 33 minutes. NIAL Julianne SCHROEDER DO DR: LAURA/tevin JOB#: [id number] / [id number]
== END 2020-01-09 13:55 | DRG 353 ==
LOC: 2 NORTH 21:58 → 1 WEST ICU 01-03 11:59 → 2 NORTH 01-07 13:30
PROVIDERS: ADMIT Internal Medicine; ATTEND Internal Medicine
PROC: 0WUF0JZ Supplement Abdominal Wall with Synthetic Substitute, Open Approach (ICD-10-PCS; principal; 2020-01-03 08:30)
DX: K43.6 Other and unspecified ventral hernia with obstruction, without gangrene (principal); I50.31 Acute diastolic (congestive) heart failure; J96.01 Acute respiratory failure with hypoxia; J96.02 Acute respiratory failure with hypercapnia; N17.0 Acute kidney failure with tubular necrosis; E66.01 Morbid (severe) obesity due to excess calories; F17.210 Nicotine dependence, cigarettes, uncomplicated; G47.00 Insomnia, unspecified; G47.33 Obstructive sleep apnea (adult) (pediatric); I11.0 Hypertensive heart disease with heart failure; I48.91 Unspecified atrial fibrillation; K76.0 Fatty (change of) liver, not elsewhere classified; Z82.49 Family history of ischemic heart disease and other diseases of the circulatory system; Z82.5 Family history of asthma and other chronic lower respiratory diseases; Z96.649 Presence of unspecified artificial hip joint; M19.90 Unspecified osteoarthritis, unspecified site; J44.9 Chronic obstructive pulmonary disease, unspecified; Z20.828 Contact with and (suspected) exposure to other viral communicable diseases; R47.02 Dysphasia
CPT/HCPCS: 36415; 36600; 71045; 74018; 80048; 80053; 81001; 82805; 82962; 83735; 84443; 85025; 85027; 85610; 87426; 93005; 93306; 94002; 94003; 94640; 94660; 94760; C1713; C1781; J0282; J0330; J0690; J1100; J1644; J1940; J2370; J2405; J2704; J2710; J3010; J3490; J7030; J7060; J7120; P9045; 92526-GN; 92610-GN; 97110-GO; 97116-GP; 97530-GO; 97530-GP; 97535-GO; G0378; J7626; U0003-CS